=== PATIENT | male | born 1940 | race Caucasian/White ===

== ENCOUNTER 2017-06-19 17:51 | Observation (INO) | payer OTHER ==
[2017-06-19 18:24] LABS: Protime INR 1.32
[2017-06-19 18:25] LABS: Absolute Lymphocytes (CBC) 1.2 K/uL (0.7-4.9); Absolute Monocytes 0.4 K/uL (0.1-1.3); Absolute Neutrophil 3.7 K/uL (1.8-8.0); Basophils % 0.6 % (0-1.3); Eosinophils % 2.2 % (0-4.4); Hematocrit 33.6 % (39.6-49.0); Lymphocytes % 22.7 % (15.3-44.8); MCV 87.4 fL (80-100); MPV 10.3 fL (7.6-11.3); Monocytes % 7.4 % (3.3-12.3); RBC Red Blood Cell Count 3.84 M/uL (4.33-5.43)
[2017-06-19 18:31] LABS: Potassium 3.5 mEq/L (3.6-5.0)
[2017-06-19] MEDS ORDERED: POTASSIUM 25 MEQ EFFERV TAB ONE (19:36)
--- NOTE | 2017-06-19 19:41 | RAD REPORT ---
EXAM DESCRIPTION: RAD - Chest Single View - 06/19/2017 6:26 pm CLINICAL HISTORY: Shortness of breath COMPARISON: December 2016 TECHNIQUE: AP portable chest image was obtained 1815 hours . FINDINGS: No peripheral mass or consolidation. Interstitial markings are prominent but not clearly d ifferent. Heart size is upper normal and stable. No acute vascular engorgement suspected. Since prior imaging new pacemaker has been placed on the right side. Remnant lead from left-sided pacemaker pres ent. No measurable pleural effusion and no pneumothorax. No gross bony abnormality seen. No acute aor tic findings suspected. IMPRESSION: No acute cardiopulmonary process. No suspicious change from prior imaging.
--- NOTE | 2017-06-19 21:28 | ER ---
Nurse's Notes [facility] Name: Sean Pascual Age: 76 yrs Sex: Male : 1940 Arrival Date: 06/19/2017 Time: 17:54 Bed 6 Private MD: Diagnosis: Dyspnea Presentation: 06/19 17:50 Presenting complaint: EMS states: pt c/o SOB since yesterday, no home oxygen, vs stable hb >95% on room air, lungs CTA. Transition of care: patient was not received from another setting of care. Onset of symptoms was June 19, 2017. Care prior to arrival: None. 17:50 Method Of Arrival: EMS: [facility] hb 17:50 Acuity: TIERRA 3 hb 18:00 Initial Sepsis Screen: Does the patient meet any 2 criteria? No. Patient's initial hb sepsis screen is negative. Does the patient have a suspected source of infection? No. Patient's initial sepsis screen is negative. Triage Assessment: 18:01 General: Appears in no apparent distress. Behavior is calm, cooperative, appropriate tw2 for age. Pain: Denies pain. Respiratory: Reports shortness of breath Onset: The symptoms/episode began/occurred yesterday, the patient has mild shortness of breath. Historical: - Allergies: 17:59 No Known Allergies; hb - Home Meds: 17:59 apixaban Oral 5 mg 2 times per day [Active]; apixaban oral 5 mg oral 1 tab [Active]; hb loperamide 2 mg Oral cap 2 caps [Active]; liothyronine 5 mcg oral tab 1 tab once daily [Active]; metoprolol tartrate 50 mg Oral tab 2 tabs once daily [Active]; tramadol 50 mg Oral tab 1 tab every 4-6 hours [Active]; Imodium Oral [Active]; Iron CR Oral [Active]; - PMHx: 17:59 Diabetes - NIDDM; Hypertension; hb - Immunization history:: Adult Immunizations up to date. - Social history:: Smoking status: Patient/guardian denies using tobacco. Screenin:00 Abuse screen: Denies threats or abuse. Nutritional screening: No deficits noted. hb Tuberculosis screening: No symptoms or risk factors identified. Fall Risk None identified. Assessment: 18:01 Respiratory: Airway is patent Respiratory effort is even, unlabored, Respiratory tw2 pattern is regular, symmetrical, Breath sounds are clear bilaterally. 18:10 General: Appears in no apparent distress. well groomed, Behavior is calm, cooperative, tw2 appropriate for age. Pain: Denies pain. Neuro: Level of Consciousness is awake, alert, obeys commands, Oriented to person, place, time, situation. Cardiovascular: Rhythm is ventricular pacer. Respiratory: Reports shortness of breath at rest. GI: Reports diarrhea, "but i have had diarrhea since my bowel surgery where they removed some of my intestines in December". : No signs and/or symptoms were reported regarding the genitourinary system. EENT: No signs and/or symptoms were reported regarding the EENT system. Derm: Skin is intact, is healthy with good turgor, Skin temperature is warm. Musculoskeletal: Range of motion: intact in all extremities. 19:32 Reassessment: Patient appears in no apparent distress at this time. No changes from ak1 previously documented assessment. Patient is alert, oriented x 3, equal unlabored respirations, skin warm/dry/pink. Patient states symptoms have improved. 19:42 Reassessment: pt and family informed of repeat trop at 2030. . ak1 20:47 Reassessment: Patient appears in no apparent distress at this time. Patient and/or aa1 family updated on plan of care and expected duration. Pain level reassessed. Patient is alert, oriented x 3, equal unlabored respirations, skin warm/dry/pink. Awaiting repeat troponin result. 22:23 Reassessment: Patient appears in no apparent distress at this time. Patient is alert, ak1 oriented x 3, equal unlabored respirations, skin warm/dry/pink. Reports given to Diana on 4th floor. Vital Signs: 17:55 BP 168 / 89; Pulse 61; Resp 17; Temp 97.9(O); Pulse Ox 96% on R/A; Weight 87.09 kg (R); hb Height 6 ft. 2 in. (187.96 cm); Pain 0/10; 18:27 BP 163 / 79; Pulse 60; Resp 23; Pulse Ox 97% on R/A; tw2 19:41 BP 156 / 72; Pulse 62; Resp 17; Pulse Ox 98% on R/A; mt 20:39 BP 156 / 72; Pulse 60; Resp 16; Pulse Ox 99% on R/A; mt 22:00 BP 146 / 80; Pulse 70; Resp 18; Pulse Ox 98% on R/A; ak1 17:55 Body Mass Index 24.65 (87.09 kg, 187.96 cm) hb ED Course: 17:54 Patient arrived in ED. hb 17:55 Triage completed. hb 17:56 Terry Mckeon MD is Attending Physician. gs 17:56 Arm band placed on. hb 17:56 Bed in low position. Call light in reach. front desk monitor on. Pulse ox on. NIBP on. hb 18:00 Marie Isabel RN is Primary Nurse. tw2 18:10 No provider procedures requiring assistance completed. Inserted saline lock: 20 gauge hb in right antecubital area, using aseptic technique. ,using aseptic technique. per JIM Salazar Blood collected. 18:27 EKG done, by ED staff, reviewed by Terry Mckeon MD. jb1 19:05 Report given to JIM Pickard. tw2 19:26 XRAY Chest (1 view) In Process Unspecified. EDMS 20:03 Repeat lab(s) drawn. by va, sent to lab. aa1 21:27 Luc Bower MD is Hospitalizing Provider. gs 21:58 Primary Nurse role handed off by Marie Isabel RN rg2 22:23 Patient admitted, IV remains in place. ak1 Administered Medications: 19:42 Drug: Potassium Effervescent Tablet 50 mEq Route: PO; ak1 19:59 Follow up: Response: No adverse reaction ak1 21:53 Drug: Aspirin Chewable Tablet 324 mg Route: PO; mg2 22:30 Follow up: Response: No adverse reaction aa1 Outcome: 21:28 Decision to Hospitalize by Provider. gs 22:29 Admitted to Tele accompanied by [facility], via wheelchair, room 426, with chart, Report aa1 called to Diana 22:29 Condition: stable 22:29 Instructed on the need for admit, Demonstrated understanding of instructions. 22:30 Patient left the ED. aa1 Signatures: Dispatcher [employer] EDMS Leon Alfred jb1 Ranjit Leary rg2 Julianne Song RN RN aa1 Melly Dawkins RN RN ak1 Sofía Diaz RN RN Marie Isabel RN RN 2 Xiomara Caballero va Terry Mckeon MD MD Gardose, Madi, RN RN mg2
--- NOTE | 2017-06-19 21:29 | EDPHYS ---
Physician Documentation [facility] Name: Sean Pascual Age: 76 yrs Sex: Male : 1940 Arrival Date: 06/19/2017 Time: 17:54 Bed 6 Private MD: ED Physician Terry Mckeon HPI: 06/19 21:12 This 76 yrs old Male presents to ER via EMS with complaints of Shortness Of gs Breath. 21:12 The patient has shortness of breath at rest. Onset: The symptoms/episode began/occurred gs acutely, just prior to arrival. Duration: The symptoms are continuous, resolved. The patient's shortness of breath has no apparent modifying factors. Associated signs and symptoms: Pertinent negatives: chest pain. Severity of symptoms: At their worst the symptoms were severe in the emergency department the symptoms have improved markedly. The patient has experienced similar episodes in the past, a few times. The patient has been recently seen by a physician: Dr. mantilla. Historical: - Allergies: 17:59 No Known Allergies; hb - Home Meds: 17:59 apixaban Oral 5 mg 2 times per day [Active]; apixaban oral 5 mg oral 1 tab [Active]; hb loperamide 2 mg Oral cap 2 caps [Active]; liothyronine 5 mcg oral tab 1 tab once daily [Active]; metoprolol tartrate 50 mg Oral tab 2 tabs once daily [Active]; tramadol 50 mg Oral tab 1 tab every 4-6 hours [Active]; Imodium Oral [Active]; Iron CR Oral [Active]; - PMHx: 17:59 Diabetes - NIDDM; Hypertension; hb - Immunization history:: Adult Immunizations up to date. - Social history:: Smoking status: Patient/guardian denies using tobacco. ROS: 21:12 All other systems are negative. gs Exam: 18:54 ECG was reviewed by the Attending Physician. gs 21:12 Head/Face: Normocephalic, atraumatic. Eyes: Pupils equal round and reactive to light, gs extra-ocular motions intact. Lids and lashes normal. Conjunctiva and sclera are non-icteric and not injected. Cornea within normal limits. Periorbital areas with no swelling, redness, or edema. ENT: Nares patent. No nasal discharge, no septal abnormalities noted. Tympanic membranes are normal and external auditory canals are clear. Oropharynx with no redness, swelling, or masses, exudates, or evidence of obstruction, uvula midline. Mucous membranes moist. Neck: Trachea midline, no thyromegaly or masses palpated, and no cervical lymphadenopathy. Supple, full range of motion without nuchal rigidity, or vertebral point tenderness. No Meningismus. Chest/axilla: Normal chest wall appearance and motion. Nontender with no deformity. No lesions are appreciated. Cardiovascular: Regular rate and rhythm with a normal S1 and S2. No gallops, murmurs, or rubs. Normal PMI, no JVD. No pulse deficits. Respiratory: Lungs have equal breath sounds bilaterally, clear to auscultation and percussion. No rales, rhonchi or wheezes noted. No increased work of breathing, no retractions or nasal flaring. Abdomen/GI: Soft, non-tender, with normal bowel sounds. No distension or tympany. No guarding or rebound. No evidence of tenderness throughout. Back: No spinal tenderness. No costovertebral tenderness. Full range of motion. Skin: Warm, dry with normal turgor. Normal color with no rashes, no lesions, and no evidence of cellulitis. MS/ Extremity: Pulses equal, no cyanosis. Neurovascular intact. Full, normal range of motion. Neuro: Awake and alert, GCS 15, oriented to person, place, time, and situation. Cranial nerves II-XII grossly intact. Motor strength 5/5 in all extremities. Sensory grossly intact. Cerebellar exam normal. Normal gait. 21:12 Constitutional: The patient appears alert, awake. Vital Signs: 17:55 BP 168 / 89; Pulse 61; Resp 17; Temp 97.9(O); Pulse Ox 96% on R/A; Weight 87.09 kg (R); hb Height 6 ft. 2 in. (187.96 cm); Pain 0/10; 18:27 BP 163 / 79; Pulse 60; Resp 23; Pulse Ox 97% on R/A; tw2 19:41 BP 156 / 72; Pulse 62; Resp 17; Pulse Ox 98% on R/A; mt 20:39 BP 156 / 72; Pulse 60; Resp 16; Pulse Ox 99% on R/A; mt 22:00 BP 146 / 80; Pulse 70; Resp 18; Pulse Ox 98% on R/A; ak1 17:55 Body Mass Index 24.65 (87.09 kg, 187.96 cm) hb MDM: 18:06 Patient medically screened. gs 21:12 Differential diagnosis: CHF exacerbation, Myocardial Infarction pneumonia, pulmonary gs edema. Data reviewed: vital signs, nurses notes, and as a result, I will admit patient. 06/19 18:07 Order name: Basic Metabolic Panel; Complete Time: 19:31 06/19 18:07 Order name: CBC with Diff; Complete Time: 19:31 06/19 18:07 Order name: PT-INR; Complete Time: 19:31 06/19 18:07 Order name: Troponin (emerg Dept Use Only); Complete Time: 19:31 06/19 18:07 Order name: XRAY Chest (1 view); Complete Time: 19:58 06/19 19:58 Order name: Troponin (emerg Dept Use Only); Complete Time: 21:02 06/19 18:07 Order name: EKG; Complete Time: 19:25 06/19 18:07 Order name: Cardiac monitoring; Complete Time: 18:07 06/19 18:07 Order name: EKG - Nurse/Tech; Complete Time: 18:17 06/19 18:07 Order name: IV Saline Lock; Complete Time: 18:17 06/19 18:07 Order name: Labs collected and sent; Complete Time: 18:17 06/19 18:07 Order name: O2 Per Protocol; Complete Time: 18:17 06/19 18:07 Order name: O2 Sat Monitoring; Complete Time: 18:20 gs EC:54 Rate is 60 beats/min. Rhythm is regular. QRS interval is prolonged. T waves are Normal. gs No ST changes noted. Clinical impression: Abnormal EKG without significant change. Interpreted by me. Administered Medications: 19:42 Drug: Potassium Effervescent Tablet 50 mEq Route: PO; ak1 19:59 Follow up: Response: No adverse reaction ak1 21:53 Drug: Aspirin Chewable Tablet 324 mg Route: PO; mg2 22:30 Follow up: Response: No adverse reaction aa1 Disposition: 06/19/17 21:28 Hospitalization ordered by Luc Bower for Observation. Preliminary diagnosis is Dyspnea. - Bed requested for Telemetry/MedSurg (observation). - Status is Observation. aa1 - Condition is Stable. - Problem is new. - Symptoms have improved. UTI on Admission? No Signatures: Dispatcher [employer] Julianne Dougherty RN RN aa1 Melly Dawkins RN RN ak1 Allison Guy RN RN Sofía Diaz RN RN Terry Mckeon MD MD Madi Langston RN RN mg2 Corrections: (The following items were deleted from the chart) 21:47 21:28 Hospitalization Ordered by Luc Bower MD for Observation. Preliminary cg diagnosis is Dyspnea. Bed requested for Telemetry/MedSurg (observation). Status is Observation. Condition is Stable. Problem is new. Symptoms have improved. UTI on Admission? No. 22:30 21:47 06/19/2017 21:28 Hospitalization Ordered by Luc Bower MD for Observation. aa1 Preliminary diagnosis is Dyspnea. Bed requested for Telemetry/MedSurg (observation). Status is Observation. Condition is Stable. Problem is new. Symptoms have improved. UTI on Admission? No.
[2017-06-19] MEDS ORDERED: ASPIRIN 325 MG TAB ONE (21:48)
[2017-06-19] MEDS ORDERED: ASPIRIN EC 81 MG TAB PO ONE (21:52)
[2017-06-19] MEDS ORDERED: ASPIRIN 81 MG CHEWABLE TABLET ONE (21:52)
[2017-06-19] MEDS ORDERED: ALPRAZOLAM 0.25 MG TABLET PO PRN (22:09)
[2017-06-19] MEDS ORDERED: MORPHINE 4 MG/ML SYR IV PRN (22:09)
[2017-06-19] MEDS ORDERED: ACETAMINOPHEN 500 MG TAB PO PRN (22:09)
[2017-06-19 22:54] VITALS: BMI 25.3
[2017-06-20] MEDS ORDERED: TRAMADOL HCL 50 MG TAB PO PRN (03:27)
--- NOTE | 2017-06-20 04:15 | P.HP ---
Certification for Inpatient Patient admitted to: Observation With expected LOS: <2 Midnights Patient will require the following post-hospital care: None Practitioner: I am a practitioner with admitting privileges, knowledge of patient current condition, hospital course, and medical plan of care. Services: Services provided to patient in accordance with Admission requirements found in Title 42 Section 412.3 of the Code of Federal Regulations Patient History Date of Service: 06/19/17 Reason for admission: Shortness of breath and CHF exacerbation History of Present Illness: Patient is a 76-year-old gentleman who came into the hospital with shortness of breath. Patient has a history of coronary artery disease and recently had his pacemaker changed. This was done by Dr. Mooney. Patient has also followed up with Dr. Coulter for many years. Patient also recently had surgery for partial gastrectomy and partial small bowel resection. Patient was doing well until the shortness of breath started. Patient was worried because of all the issues he had with his surgery. He still following up with wound care. Patient shortness of breath was not improving so he came into the ER for further evaluation. In the emergency room patient's chest x-ray reveals some pulmonary edema. Patient was not hypoxic. Patient was admitted to the hospital for congestive heart failure exacerbation. Allergies No Known Allergies Allergy (Uncoded 06/20/17 00:22) Unknown Home Medications: Apixaban [Eliquis] 5 mg PO BID 01/30/17 Metoprolol Tartrate [Lopressor] 50 mg PO BID 01/30/17 Ferrous Sulfate [Iron] 325 mg PO DAILY 06/20/17 Liothyronine Sodium [Cytomel] 5 mcg PO DAILY 06/20/17 Loperamide [Imodium] 2 mg PO DAILY 06/20/17 Tramadol HCl [Ultram] 50 mg PO Q6HR PRN 06/20/17 - Past Medical/Surgical History Has patient received pneumonia vaccine in the past: Yes Diabetic: Yes -: HTN -: GERD -: DM -: Irregular Heart Rate -: Depression -: Left knee replacement -: Pacemaker -: Left shoulder sx -: Small/Large Bowel resection r/t obstruction -: Cardiac Bypass - Family History Father Medical History: Heart disease Notes: heart attack Mother Medical History: Lung disease Notes: emphysema - Social History Smoking Status: Former smoker Alcohol use: Yes CD- Drugs: No Caffeine use: Yes Place of Residence: Home Review of Systems 10-point ROS is otherwise unremarkable Physical Examination - Vital Signs Temperature: 97.8 F Blood Pressure: 173/74 Pulse: 59 Respirations: 20 Pulse Ox (%): 95 - Physical Exam General: Alert, In no apparent distress, Oriented x3 HEENT: Atraumatic, PERRLA, Mucous membr. moist/pink, EOMI, Sclerae nonicteric Neck: Supple, 2+ carotid pulse no bruit, No LAD, Without JVD or thyroid abnormality Respiratory: Clear to auscultation bilaterally, Normal air movement Cardiovascular: Regular rate/rhythm, Normal S1 S2, Systolic murmur Gastrointestinal: Normal bowel sounds, Soft and benign, Non-distended, No tenderness Musculoskeletal: No clubbing, No swelling, No tenderness Integumentary: No rashes Neurological: Normal gait, Normal speech, Normal strength at 5/5 x4 extr, Normal tone, Sensation intact, Cranial nerves 3-12 intact, Normal affect Lymphatics: No axilla or inguinal lymphadenopathy - Studies Laboratory Data (last 24 hrs) 06/19/17 18:10: PT 15.6 H, INR 1.32 06/19/17 18:10: WBC 5.5, Hgb 10.7 L, Hct 33.6 L, Plt Count 195 06/19/17 18:10: Sodium 142, Potassium 3.5 L, BUN 11, Creatinine 1.18, Glucose 102 Assessment & Plan - Problems (Diagnosis) (1) Acute exacerbation of congestive heart failure Current Visit: Yes Status: Acute (2) Depression Current Visit: No Status: Acute (3) Diabetes Current Visit: No Status: Acute (4) Hard of hearing Current Visit: No Status: Acute (5) History of bowel resection Current Visit: No Status: Acute (6) History of left knee replacement Current Visit: No Status: Acute (7) Hx of heart bypass surgery Current Visit: No Status: Acute (8) Hx of myocardial infarction Current Visit: No Status: Acute (9) Hypertension Current Visit: No Status: Acute (10) Pacemaker Current Visit: No Status: Acute - Plan 1. Echocardiogram 2. We will start patient on ARB 3. We will start patient on a Beta chong 4. Cardiology consultation 5. Gently diurese as patient looks to be compensating already. 6. Strict I's and O's 7. Repeat CXR 8. Daily weights 9. Education regarding diet and treatment of congestive heart failure 10. Outpatient follow with Cardiology - Advance Directives Does patient have a Living Will: Yes Does patient have a Durable POA for Healthcare: Yes - Code Status/Comfort Care Code Status Assessed: Yes Code Status: Full Code Critical Care: No Time Spent Managing PTS Care (In Minutes): 50
[2017-06-20 04:46] LABS: Albumin 3.5 g/dL (3.2-5.5); Bilirubin Total 0.8 mg/dL (0.3-1.2); Potassium 3.3 mEq/L (3.6-5.0); Protein, Total 6.4 g/dL (6.0-8.3)
[2017-06-20 04:57] LABS: Magnesium 1.4 mg/dL (1.8-2.5)
[2017-06-20] MEDS ORDERED: POTASSIUM 25 MEQ EFFERV TAB PO ONE (05:14)
[2017-06-20] MEDS ORDERED: Magnesium Sulfate 2gm IVPB 2 G/50 ML BAG IV ONE (05:14)
[2017-06-20 06:07] LABS: Absolute Lymphocytes (CBC) 1.7 K/uL (0.7-4.9); Absolute Monocytes 0.4 K/uL (0.1-1.3); Absolute Neutrophil 4.1 K/uL (1.8-8.0); Basophils % 0.5 % (0-1.3); Eosinophils % 2.6 % (0-4.4); Hematocrit 34.1 % (39.6-49.0); MCH 29.1 pg (27.0-35.0); MCV 86.7 fL (80-100); MPV 10.4 fL (7.6-11.3); Monocytes % 6.6 % (3.3-12.3); RBC Red Blood Cell Count 3.93 M/uL (4.33-5.43)
--- NOTE | 2017-06-20 06:42 | EKG ---
Test Date: 2017-06-19 Test Time: 18:17:38 Astrochemist: DAMIAN MEASUREMENT RESULTS: Intervals: Rate: 60 FL: QRSD: 188 QT: 482 QTc: 482 [place]: P: FL: QRS: -65 T: 113 INTERPRETIVE STATEMENTS: Ventricular-paced rhythm Abnormal ECG Compared to ECG 12/25/2016 00:08:41 Intraventricular conduction delay no longer present Previous ECG demonstrated pacemaker failure to capture, which has resolved Electronically Signed On 06-20-17 06:41:39 CDT by Ajit Neal
[2017-06-20] MEDS ORDERED: Morphine 2 MG/2 ML SYR IV PRN (08:04)
[2017-06-20] MEDS ORDERED: LIOTHYRONINE SOD 5 MCG TAB PO SCH (09:00)
[2017-06-20] MEDS ORDERED: FERROUS SULFATE 325 MG TAB PO SCH (09:00)
[2017-06-20] MEDS ORDERED: ASPIRIN 325 MG TAB PO SCH (09:00)
[2017-06-20] MEDS ORDERED: METOPROLOL TAR 50 MG TAB PO SCH ×2 (09:00)
[2017-06-20] MEDS ORDERED: APIXABAN 5 MG TABLET PO SCH (09:00)
[2017-06-20] MEDS ORDERED: LOPERAMIDE HCL 2 MG CAPSULE PO SCH (09:00)
[2017-06-20] MEDS ORDERED: ENOXAPARIN 40 MG/0.4 ML SQ SCH (09:00)
[2017-06-20 09:06] VITALS: TEMP 98.2
[2017-06-20 09:49] VITALS: O2SAT 97
--- NOTE | 2017-06-20 11:55 | EKG ---
Test Date: 2017-06-20 Test Time: 08:59:30 Steel Die Engraver: CHELSEY MEASUREMENT RESULTS: Intervals: Rate: 61 [place]: QRSD: 182 QT: 484 QTc: 487 [place]: P: MI: QRS: -77 T: 111 INTERPRETIVE STATEMENTS: Electronic ventricular pacemaker Compared to ECG 06/19/2017 18:17:38 No significant changes Electronically Signed On 06-20-17 11:54:01 CDT by Luis Moncada
[2017-06-20 12:11] VITALS: BP 164/77
--- NOTE | 2017-06-20 13:07 | ECHO ---
HEIGHT: 6 ft 2 in WEIGHT: 197 lb 8 oz DATE OF STUDY: 06/20/[address]: Luc Bower MD 2-DIMENSIONAL: YES M.MODE: YES DOPPLER: YES COLOR FLOW: YES TDS: NO PORTABLE: NO DEFINITY: NO BUBBLE STUDY: NO DIAGNOSIS: CHEST PAIN RULE OUT ACS CARDIAC HISTORY: CATHERIZATION: NO SURGERY: NO PROSTHETIC VALVE: NO PACEMAKER: YES MEASUREMENTS (cm) DIASTOLIC (NORMALS) SYSTOLIC (NORMALS) IVSd 1.1 (0.6-1.2) LA Diam 5.1 (1.9-4.0) LVEF 45% LVIDd 6.1 (3.5-5.7) LVIDs 4.3 (2.0-3.5) %FS % LVPWd 1.1 (0.6-1.2) Ao Diam 3.2 (2.0-3.7) 2 DIMENSIONAL ASSESSMENT: RIGHT ATRIUM: NORMAL LEFT ATRIUM: DILATED RIGHT VENTRICLE: NORMAL LEFT VENTRICLE: DILATED TRICUSPID VALVE: NORMAL MITRAL VALVE: NORMAL PULMONIC VALVE: NORMAL AORTIC VALVE: NORMAL PERICARDIAL EFFUSION: NONE AORTIC ROOT: NORMAL LEFT VENTRICULAR WALL MOTION: MILD GLOBAL HYPOKINESIS. DOPPLER/COLOR FLOW: MILD TRICUSPID REGURGITATION. MODERATE AORTIC REGURGITATION. COMMENTS: TECHNICALLY DIFFICULT STUDY. MILD GLOBAL HYPOKINESIS. LEFT VENTRICULAR EJECTION FRACTION 45%. MILD TRICUSPID REGURGITATION. MODERATE AORTIC REGURGITATION. LEFT ATRIAL AND VENTRICLE DILITATION. TECHNOLOGIST: Perla ALLEN
--- NOTE | 2017-06-21 11:16 | CON ---
Date of Consultation: 06/20/2017 The patient was admitted 06/19/[address] Bower's service for shortness of breath. I saw the patient on 06/20/2017. History Of Present Illness: Mr. Pascual is a 76-year-old white male, who really had no significant hi story as far as congestive heart failure. He has a history of recent pacemaker placement by Dr. Moises villar. He sees Dr. Coulter for his usual cardiac care. He came in mostly with dizziness, shortness of breath. No chest pain. Was found to be very hypertensive when he came to the emergency room. Denie d any blurred vision or weakness in his extremities. Denied any syncope. Denied any fevers or chill s with workup was fairly unremarkable. His symptoms lasted about 20 minutes. Past Medical History: Positive for hypertension, diabetes, pacemaker placement. Has had atrial fibr illation as well. Allergies: NONE. Review of Systems: Negative. Social History: Negative. Family History: Negative. Medications: At home include metoprolol, Eliquis. Physical Examination: General: Mr. Pascual appeared to be in no acute distress. He was very anxious to go home. Vital Signs: His vital signs were stable and afebrile. He was in a paced rhythm at about 70. HEENT: Negative. Neck: Supple with no bruit. Chest: Clear to auscultation and percussion. Cardiac: Revealed a regular rhythm and rate without any murmurs, gallops, or rubs. Abdomen: Benign. Extremities: Revealed no clubbing, cyanosis, or edema. Diagnostic Data: Fairly unremarkable. Echocardiogram that was done today was fairly unremarkable. He had a magnesium of 1.4, hemoglobin 11.4. CPKs, MBs, and troponin, and BNPs are all negative. Impression And Plan: I think Mr. Pascual's symptoms may have been secondary to either a hypertensive episode or transient ischemic attack. He is on Eliquis and metoprolol. He has a pacemaker that is f unctioning properly. Echocardiogram is unremarkable. His enzymes are unremarkable. I feel comforta ble with Mr. Pascual going home and follow up with Dr. Coulter in the near future. We will just obser ve him for now. An outpatient carotid Doppler may not be unreasonable. CHRIS/ELICIAL Voice ID: [id number] Report ID: [id number]
--- NOTE | 2017-08-02 14:48 | P.DS ---
Discharge Date: 06/20/17 Disposition: ROUTINE DISCHARGE Discharge Condition: GOOD Reason for Admission: Shortness of breath and CHF exacerbation Consultations: CArdiology - Problems (1) Acute exacerbation of congestive heart failure Status: Acute (2) Depression Status: Acute (3) Diabetes Onset Date: 07/27/17 Status: Acute (4) Hard of hearing Status: Acute (5) History of bowel resection Status: Acute (6) History of left knee replacement Status: Acute (7) Hx of heart bypass surgery Status: Acute (8) Hx of myocardial infarction Status: Acute (9) Hypertension Onset Date: 07/20/17 Status: Acute Qualifiers: Hypertension type: essential hypertension Qualified Code(s): I10 - Essential (primary) hypertension (10) Pacemaker Status: Acute Brief History of Present Illness: Patient is a 76-year-old gentleman who came into the hospital with shortness of breath. Patient has a history of coronary artery disease and recently had his pacemaker changed. This was done by Dr. Mooney. Patient has also followed up with Dr. Ortega for many years. Patient also recently had surgery for partial gastrectomy and partial small bowel resection. Patient was doing well until the shortness of breath started. Patient was worried because of all the issues he had with his surgery. He still following up with wound care. Patient shortness of breath was not improving so he came into the ER for further evaluation. In the emergency room patient's chest x-ray reveals some pulmonary edema. Patient was not hypoxic. Patient was admitted to the hospital for congestive heart failure exacerbation. Hospital Course: Patient's symptoms have resolved. Respiratory status is stable. Patient is clinically improved and is stable for discharge home with outpt follow-up. Vital Signs/Physical Exam: Temp Pulse Resp BP Pulse Ox 98.2 F 60 16 164/77 H 95 06/20/17 12:00 06/20/17 12:00 06/20/17 12:00 06/20/17 12:00 06/20/17 12:00 General: Alert, In no apparent distress, Oriented x3 Laboratory Data at Discharge: WBC 6.4 K/uL (4.3-10.9) D 06/20/17 05:39 Hgb 11.4 g/dL (13.6-17.9) L 06/20/17 05:39 Hct 34.1 % (39.6-49.0) L 06/20/17 05:39 Plt Count 178 K/uL (152-406) 06/20/17 05:39 PT 15.6 SECONDS (9.5-12.5) H 06/19/17 18:10 INR 1.32 06/19/17 18:10 Sodium 142 mEq/L (135-145) 06/20/17 03:51 Potassium 3.3 mEq/L (3.6-5.0) L 06/20/17 03:51 BUN 10 mg/dL (6-20) 06/20/17 03:51 Creatinine 1.13 mg/dL (0.61-1.24) 06/20/17 03:51 Glucose 88 mg/dL (65-120) 06/20/17 03:51 Magnesium 1.4 mg/dL (1.8-2.5) L* D 06/20/17 03:51 Total Bilirubin 0.8 mg/dL (0.3-1.2) 06/20/17 03:51 AST 33 IU/L (10-42) 06/20/17 03:51 ALT 32 IU/L (10-60) 06/20/17 03:51 Alkaline Phosphatase 77 IU/L (42-121) 06/20/17 03:51 Troponin I 0.05 ng/mL (<0.03) H 06/20/17 03:51 B-Natriuretic Peptide 1077 pg/ml (<=100) H 06/20/17 05:39 Triglycerides Cancelled 06/20/17 06:00 Cholesterol Cancelled 06/20/17 06:00 HDL Cholesterol Cancelled 06/20/17 06:00 Cholesterol/HDL Ratio Cancelled 06/20/17 06:00 Home Medications: Apixaban [Eliquis] 5 mg PO BID 01/30/17 Metoprolol Tartrate [Lopressor*] 50 mg PO BID 01/30/17 Liothyronine Sodium [Cytomel] 5 mcg PO DAILY 06/20/17 Fluticasone Propionate [Flovent Diskus] 1 spray NS DAILY 07/19/17 Diphenoxylate HCl/Atropine [Diphenoxylate-Atrop 2.5-0.025] 2 tab PO TID Ferrous Sulfate [Iron] 1 tab PO DAILY 07/27/17 Loratadine 10 mg PO DAILY 07/27/17 Multivitamin [Multivitamins] 1 cap PO DAILY 07/27/17 predniSONE [Prednisone*] 10 mg PO BID 07/27/17 Patient Discharge Instructions: OK TO DC IV AND DC HOME if ok with cardiology. FOLLOW-UP WITH PRIMARY CARE PROVIDER IN 1-2 WEEKS. FOLLOW-UP WITH CARDIOLOGY, Dr. Ortega, IN 1-2 WEEKS. RETURN TO THE ER IF symptoms worsen. CALL or TEXT DR. MONCADA AT [phone] IF ANY QUESTIONS REGARDING HOSPITAL STAY. PLEASE CALL THE FLOOR AT [phone] IF ANY MEDICATION OR NURSING QUESTIONS. Diet: AHA Activity: Fall precautions Followup: JUAN LUIS ORTEGA [UNKNOWN] - 1-2 Weeks (follow up in 1-2 weeks) Alberto Zurita MD [ACTIVE - CAN ADMIT] - 1-2 Weeks (follow up Parminder in 1-2 weeks. ) Time spent managing pt's care (in minutes): 25
== END 2017-06-20 13:57 | disposition home or self-care (01) ==
LOC: ER 17:51 → ERHOLD 21:35 → 4TH 22:15
PROVIDERS: ADMIT Hospitalist; ATTEND Hospitalist
DX: I11.0 Hypertensive heart disease with heart failure (principal); I50.9 Heart failure, unspecified; I25.10 Atherosclerotic heart disease of native coronary artery without angina pectoris; F32.9 Major depressive disorder, single episode, unspecified; E11.9 Type 2 diabetes mellitus without complications; Z96.652 Presence of left artificial knee joint; Z95.1 Presence of aortocoronary bypass graft; Z95.0 Presence of cardiac pacemaker
CPT/HCPCS: 36415; 71045; 80048; 80053; 80061; 83735; 83880; 84484 ×4; 85025 ×2; 85610; 93005 ×2; 93306; 99285; G0378 ×2; J1650; J3475

== ENCOUNTER 2017-07-02 23:57 | Emergency (ER) | payer OTHER ==
[2017-07-03] MEDS ORDERED: METHYLPREDNISOLONE 125 MG INJ ONE (01:24)
[2017-07-03] MEDS ORDERED: ALBUTEROL 2.5 MG/3 ML NEB SOL ONE ×2 (01:24→04:52)
[2017-07-03 01:46] LABS: Absolute Lymphocytes (CBC) 2.1 K/uL (0.7-4.9); Absolute Monocytes 0.5 K/uL (0.1-1.3); Absolute Neutrophil 4.8 K/uL (1.8-8.0); Basophils % 0.6 % (0-1.3); Eosinophils % 2.3 % (0-4.4); Hematocrit 36.1 % (39.6-49.0); Lymphocytes % 27.8 % (15.3-44.8); MCH 28.9 pg (27.0-35.0); MCV 87.7 fL (80-100); MPV 9.9 fL (7.6-11.3); Monocytes % 6.6 % (3.3-12.3); RBC Red Blood Cell Count 4.12 M/uL (4.33-5.43)
[2017-07-03 01:54] LABS: Protime INR 1.5
[2017-07-03 02:10] LABS: Blood O2 Saturation 96.7 % (92-98.5)
[2017-07-03 02:17] LABS: Albumin 3.7 g/dL (3.2-5.5); Bilirubin Direct 0.2 mg/dL (0-0.2); Bilirubin Total 0.9 mg/dL (0.3-1.2)
[2017-07-03 02:18] LABS: CKMB Creatine Kinase MB 2.2 ng/ml (0.3-4.0); Magnesium 1.4 mg/dL (1.8-2.5); Potassium 2.9 mEq/L (3.6-5.0)
[2017-07-03] MEDS ORDERED: POTASSIUM CL SA 10 MEQ TAB PO ONE (02:42)
[2017-07-03] MEDS ORDERED: KCL 20 MEQ/100 mL IVPB 20 MEQ/100 ML BAG IV ONE (02:43)
[2017-07-03] MEDS ORDERED: Magnesium Sulfate 2gm IVPB 2 G/50 ML BAG IV ONE (02:52)
[2017-07-03] MEDS ORDERED: NA CHLORIDE 0.9% 1,000 ML ONE (03:05)
[2017-07-03] MEDS ORDERED: IPRATROPIUM BROM 0.5MG/2.5ML ONE (04:52)
[2017-07-03] MEDS ORDERED: FUROSEMIDE 40 MG/4 ML VIAL ONE (04:52)
--- NOTE | 2017-07-03 06:00 | ER ---
Nurse's Notes [facility] Name: Sean Pascual Age: 76 yrs Sex: Male : 1940 Arrival Date: 07/03/2017 Time: 00:01 Bed 14 Private MD: Alberto Zurita Diagnosis: Acute dyspnea. Mild congestive heart failure Presentation: 07/03 00:11 Presenting complaint: Patient states: Feels shortness of breath since yesterday, states mb3 "can't get comfortable, just up and down". Transition of care: patient was not received from another setting of care. Onset of symptoms was July 01, 2017. Initial Sepsis Screen: Does the patient meet any 2 criteria? No. Patient's initial sepsis screen is negative. Does the patient have a suspected source of infection? No. Patient's initial sepsis screen is negative. Care prior to arrival: None. 00:11 Method Of Arrival: Ambulatory mb3 00:11 Acuity: TIERRA 3 mb3 Triage Assessment: 00:15 General: Appears in no apparent distress. comfortable, well groomed, Behavior is mb3 cooperative, appropriate for age, anxious. Pain: Denies pain. Neuro: No deficits noted. Level of Consciousness is awake, alert, obeys commands. Cardiovascular: No deficits noted. Heart tones S1 S2 present Capillary refill < 3 seconds Patient's skin is warm and dry. Pulses are all present. Respiratory: Reports shortness of breath at rest Airway is patent Respiratory effort is even, unlabored, Respiratory pattern is regular, symmetrical, Breath sounds are clear bilaterally. Onset: The symptoms/episode began/occurred yesterday, the patient has mild shortness of breath. GI: No signs and/or symptoms were reported involving the gastrointestinal system. Abdomen is flat, Bowel sounds present X 4 quads. : No signs and/or symptoms were reported regarding the genitourinary system. Musculoskeletal: No signs and/or symptoms reported regarding the musculoskeletal system. Circulation, motion, and sensation intact. Range of motion: intact in all extremities. 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 - Social history:: Smoking status: Patient/guardian denies using tobacco. Screenin:18 Abuse screen: Denies threats or abuse. Nutritional screening: No deficits noted. mb3 Tuberculosis screening: No symptoms or risk factors identified. Fall Risk No fall in past 12 months (0 pts). Secondary diagnosis (15 points) No IV (0 pts). Ambulatory Aid- Crutches/Cane/Walker (15 pts). Gait- Normal/Bed Rest/Wheelchair (0 pts) Mental Status- Oriented to own ability (0 pts). Total Garcia Fall Scale indicates Low Risk Score (25-44 pts). Side Rails Up X 2 Placed close to Nursing Station Frequent Obs/Assesments occuring Family Present and informed to notify staff if they need to leave bedside. Assessment: 00:19 Cardiovascular: Rhythm is A-V sequential pacer. mb3 03:18 General: Appears in no apparent distress. uncomfortable, slender, Behavior is calm, bb cooperative. Neuro: Level of Consciousness is awake, alert, obeys commands, Oriented to person, place, time, situation. Cardiovascular: Heart tones S1 S2 present Capillary refill < 3 seconds Patient's skin is warm and dry. Respiratory: Reports shortness of breath Airway is patent Respiratory effort is unlabored, Breath sounds are diminished in right upper lobe. GI: No signs and/or symptoms were reported involving the gastrointestinal system. Derm: Skin is pink, warm \\T\\ dry. Musculoskeletal: Circulation, motion, and sensation intact. 04:21 Reassessment: pt appears to be sleeping, eyes closed, resp unlabored, no signs of bb discomfort noted, IV site intact, patent with fluids infusing, son Roddy's number is [phone] and he will be in his car taking a nap. 06:25 Reassessment: respiratory therapist explained the use of breathing treatments for home. mg2 Vital Signs: 00:17 BP 161 / 72; Pulse 60; Resp 18; Temp 97.8(O); Pulse Ox 97% on R/A; Weight 85.28 kg; mb3 Height 6 ft. 2 in. (187.96 cm); Pain 0/10; 01:13 BP 152 / 75; Pulse 60; Resp 20; Pulse Ox 97% on R/A; mb3 03:25 BP 182 / 84; Pulse 61; Resp 18; Temp 98.0; Pulse Ox 100% on R/A; Pain 0/10; mg2 04:24 BP 160 / 66; Pulse 60; Resp 16 S; Pulse Ox 96% ; bb 05:28 Pulse 61; Resp 18; Pulse Ox 100% ; Pain 0/10; mg2 06:26 BP 155 / 86; Pulse 62; Resp 18; Pulse Ox 100% ; Pain 0/10; mg2 00:17 Body Mass Index 24.14 (85.28 kg, 187.96 cm) mb3 ED Course: 00:01 Patient arrived in ED. es 00:01 Alberto Zurita MD is Private Physician. es 00:11 Joey Flynn, JIM is Primary Nurse. mb3 00:12 Triage completed. mb3 00:13 Joce Rees MD is Attending Physician. pkl 00:20 Arm band placed on right wrist. mb3 00:20 Patient has correct armband on for positive identification. Placed in gown. Bed in low mb3 position. Call light in reach. Side rails up X 1. phototypesetting equipment monitor on. Pulse ox on. NIBP on. 00:24 X-ray completed. Portable x-ray completed in exam room. Patient tolerated procedure kw well. 00:32 Chest Single View XRAY In Process Unspecified. EDMS 01:01 Joce Rees MD is Attending Physician. pkl 01:40 Inserted saline lock: 20 gauge in right forearm, using aseptic technique. Blood mb3 collected. 02:[address] via stretcher. nj 03:03 CT completed. Patient tolerated procedure well. Patient moved back from [place]. nj 03:04 CT Chest For PE Angio In Process Unspecified. EDMS 03:26 IV is patent, is intact, with fluids infusing freely. bb 05:59 Alberto Zurita MD is Referral Physician. pkl 06:25 No provider procedures requiring assistance completed. IV discontinued, intact, mg2 bleeding controlled, No redness/swelling at site. Pressure dressing applied. Administered Medications: 01:39 Drug: Albuterol - atroVENT (3:1) (2.5 mg - 0.5 mg) 3 ml Route: Nebulizer; mb3 02:38 Follow up: Response: No adverse reaction mb3 01:40 Drug: SOLU-Medrol 125 mg Route: IVP; Site: right forearm; mb3 02:38 Follow up: Response: No adverse reaction mb3 02:44 Drug: K-Dur 40 mEq Route: PO; mb3 06:04 Follow up: Response: No adverse reaction mg2 03:16 Drug: NS 0.9% 1000 ml Route: IV; Rate: 100 ml/hr; Site: right antecubital; bb 06:05 Follow up: IV Status: Order to discontinue infusion; IV Intake: 300ml mg2 03:17 Drug: Magnesium Sulfate 2 grams Route: IVPB; Infused Over: 2 hrs; Site: right bb antecubital; 05:20 Follow up: IV Status: Completed infusion; IV Intake: 50ml mg2 03:17 Drug: Potassium Chloride 20 mEq Route: IV; Rate: calculated rate; Site: right bb antecubital; 05:20 Follow up: IV Status: Completed infusion; IV Intake: 100ml mg2 04:59 Drug: Albuterol - atroVENT (3:1) (2.5 mg - 0.5 mg) 3 ml Route: Nebulizer; mg2 06:06 Follow up: Response: No adverse reaction mg2 04:59 Drug: Lasix 40 mg Route: IVP; Site: right forearm; mg2 06:06 Follow up: Response: No adverse reaction mg2 06:24 Follow up: Response: No adverse reaction mg2 Intake: 05:20 IV: 50ml; Total: 50ml. mg2 05:20 IV: 100ml; Total: 150ml. mg2 06:05 IV: 300ml; Total: 450ml. mg2 Output: 05:25 Urine: 400ml (Voided); Total: 400ml. mg2 Outcome: 05:59 Discharge ordered by . pkl 06:24 Discharged to home ambulatory, with family. mg2 06:24 Condition: stable 06:24 Discharge instructions given to patient, family, Instructed on discharge instructions, follow up and referral plans. medication usage, Demonstrated understanding of instructions, follow-up care, medications. 06:27 Patient left the ED. mg2 Signatures: Dispatcher [employer] Joce Barros MD MD pkl Leandra Lara Brenda, RN RN bb Magali Floyd Nathan nj Gardose, Michele, RN RN mg2 Joey Flynn RN RN mb3
--- NOTE | 2017-07-03 06:00 | EDPHYS ---
Physician Documentation [facility] Name: Sean Pascual Age: 76 yrs Sex: Male : 1940 Arrival Date: 07/03/2017 Time: 00:01 Bed 14 Private MD: Alberto Zurita ED Physician Joce Rees HPI: 07/03 01:24 This 76 yrs old Male presents to ER via Ambulatory with complaints of pkl Breathing Difficulty. 01:24 The patient has shortness of breath at rest. Onset: The symptoms/episode began/occurred pkl yesterday. The patient has experienced similar episodes in the past, a few times. 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 - Social history:: Smoking status: Patient/guardian denies using tobacco. ROS: 01:24 Eyes: Negative for injury, pain, redness, and discharge, ENT: Negative for injury, pkl pain, and discharge, Neck: Negative for injury, pain, and swelling, Cardiovascular: Negative for chest pain, palpitations, and edema. 01:24 Respiratory: Positive for shortness of breath. 01:24 Abdomen/GI: Negative for abdominal pain, nausea, vomiting, and diarrhea. pkl 01:24 Back: Negative for acute changes. 01:24 : Negative for urinary symptoms. 01:24 MS/extremity: Negative for acute changes. 01:24 Skin: Negative for rash. 01:24 Neuro: Negative for altered mental status. Exam: 01:24 Head/Face: Normocephalic, atraumatic. Eyes: Pupils equal round and reactive to light, pkl extra-ocular motions intact. Lids and lashes normal. Conjunctiva and sclera are non-icteric and not injected. Cornea within normal limits. Periorbital areas with no swelling, redness, or edema. ENT: Nares patent. No nasal discharge, no septal abnormalities noted. Tympanic membranes are normal and external auditory canals are clear. Oropharynx with no redness, swelling, or masses, exudates, or evidence of obstruction, uvula midline. Mucous membranes moist. Neck: Trachea midline, no thyromegaly or masses palpated, and no cervical lymphadenopathy. Supple, full range of motion without nuchal rigidity, or vertebral point tenderness. No Meningismus. Chest/axilla: Normal chest wall appearance and motion. Nontender with no deformity. No lesions are appreciated. Cardiovascular: Regular rate and rhythm with a normal S1 and S2. No gallops, murmurs, or rubs. Normal PMI, no JVD. No pulse deficits. 01:24 Respiratory: the patient does not display signs of respiratory distress, Respirations: normal, Breath sounds: bronchial sounds, that are mild, are scattered. 01:24 Abdomen/GI: Bowel sounds: normal, Palpation: abdomen is soft and non-tender, in all pkl quadrants. 01:24 Back: Exam negative for acute changes. 01:24 : Exam negative for acute changes. 01:24 Musculoskeletal/extremity: Exam is negative for acute changes. 01:24 Skin: Exam negative for rash. 01:24 Neuro: Orientation: is normal, Mentation: is normal, Cranial nerves: grossly normal, Motor: is normal. Vital Signs: 00:17 BP 161 / 72; Pulse 60; Resp 18; Temp 97.8(O); Pulse Ox 97% on R/A; Weight 85.28 kg; mb3 Height 6 ft. 2 in. (187.96 cm); Pain 0/10; 01:13 BP 152 / 75; Pulse 60; Resp 20; Pulse Ox 97% on R/A; mb3 03:25 BP 182 / 84; Pulse 61; Resp 18; Temp 98.0; Pulse Ox 100% on R/A; Pain 0/10; mg2 04:24 BP 160 / 66; Pulse 60; Resp 16 S; Pulse Ox 96% ; bb 05:28 Pulse 61; Resp 18; Pulse Ox 100% ; Pain 0/10; mg2 06:26 BP 155 / 86; Pulse 62; Resp 18; Pulse Ox 100% ; Pain 0/10; mg2 00:17 Body Mass Index 24.14 (85.28 kg, 187.96 cm) mb3 MDM: 01:01 Patient medically screened. pkl 05:56 Data reviewed: vital signs, nurses notes, lab test result(s), EKG, radiologic studies, pkl CT scan, plain films. 05:56 ED course: Patient said he is feeling better. Want to go home. Does not want to be pkl admitted for further treatment. Advised to follow up with Dr. Zurita in 1 to 2 days.. 07/03 01:18 Order name: Basic Metabolic Panel pkl 07/03 01:18 Order name: BNP; Complete Time: 02:14 pkl 07/03 01:18 Order name: CBC with Diff; Complete Time: 02:14 pkl 07/03 01:18 Order name: Ckmb; Complete Time: 02:20 pkl 07/03 01:18 Order name: CPK; Complete Time: 02:20 pkl 07/03 01:18 Order name: LFT's; Complete Time: 02:20 pkl 07/03 01:18 Order name: Magnesium; Complete Time: 02:20 pkl 07/03 01:18 Order name: PT-INR; Complete Time: 02:14 pkl 07/03 01:18 Order name: Ptt, Activated; Complete Time: 02:14 pkl 07/03 01:18 Order name: Troponin (emerg Dept Use Only); Complete Time: 02:14 pkl 07/03 01:18 Order name: ABG; Complete Time: 02:14 pkl 07/03 01:21 Order name: Basic Metabolic Panel; Complete Time: 02:20 EDMS 07/03 01:25 Order name: D-Dimer; Complete Time: 02:14 EDMS 07/03 00:18 Order name: Chest Single View XRAY mb3 07/03 01:18 Order name: EKG; Complete Time: 01:21 pkl 07/03 01:18 Order name: Cardiac monitoring; Complete Time: :40 pkl 07/03 01:18 Order name: EKG - Nurse/Tech; Complete Time: 02:38 pkl 07/03 01:18 Order name: IV Saline Lock; Complete Time: :40 pkl 07/03 01:18 Order name: Labs collected and sent; Complete Time: :40 pkl 07/03 01:18 Order name: O2 Per Protocol; Complete Time: : pkl 07/03 02:20 Order name: CT Chest For PE Angio pkl 07/03 01:18 Order name: O2 Sat Monitoring; Complete Time: : pkl Administered Medications: 01:39 Drug: Albuterol - atroVENT (3:1) (2.5 mg - 0.5 mg) 3 ml Route: Nebulizer; mb3 02:38 Follow up: Response: No adverse reaction mb3 01:40 Drug: SOLU-Medrol 125 mg Route: IVP; Site: right forearm; mb3 02:38 Follow up: Response: No adverse reaction mb3 02:44 Drug: K-Dur 40 mEq Route: PO; mb3 06:04 Follow up: Response: No adverse reaction mg2 03:16 Drug: NS 0.9% 1000 ml Route: IV; Rate: 100 ml/hr; Site: right antecubital; bb 06:05 Follow up: IV Status: Order to discontinue infusion; IV Intake: 300ml mg2 03:17 Drug: Magnesium Sulfate 2 grams Route: IVPB; Infused Over: 2 hrs; Site: right bb antecubital; 05:20 Follow up: IV Status: Completed infusion; IV Intake: 50ml mg2 03:17 Drug: Potassium Chloride 20 mEq Route: IV; Rate: calculated rate; Site: right bb antecubital; 05:20 Follow up: IV Status: Completed infusion; IV Intake: 100ml mg2 04:59 Drug: Albuterol - atroVENT (3:1) (2.5 mg - 0.5 mg) 3 ml Route: Nebulizer; mg2 06:06 Follow up: Response: No adverse reaction mg2 04:59 Drug: Lasix 40 mg Route: IVP; Site: right forearm; mg2 06:06 Follow up: Response: No adverse reaction mg2 06:24 Follow up: Response: No adverse reaction mg2 Disposition: 07/03/17 05:59 Discharged to Home. Impression: Acute dyspnea. Mild congestive heart failure. - Condition is Stable. - Prescriptions for Lasix 40 mg Oral Tablet - take 1 tablet by ORAL route once daily for 15 days; 15 tablet. Potassium Chloride 10 mEq Oral Tablet - take 1 tablet by ORAL route every 12 hours; 30 tablet. Albuterol Sulfate 2.5 mg /3 mL (0.083 %) Inhalation Solution for Nebulization - inhale 1 unit by NEBULIZATION route every 8 hours As needed; 1 box. - Medication Reconciliation Form, Thank You Letter, Antibiotic Education, Prescription Opioid Use form. - Follow up: Alberto uZrita MD; When: 1 - 2 days; Reason: Re-evaluation by your physician. - Problem is new. - Symptoms have improved. Signatures: Dispatcher [employer] [facility] Joce Rees MD MD pkl Irma Romero, RN RN bb Madi Langston, JIM RN mg2 Joey Flynn, RN RN mb3 Corrections: (The following items were deleted from the chart) 01:24 01:23 D-DIMER+[id number].BRZ ordered. [facility] 06:27 05:59 07/03/2017 05:59 Discharged to Home. Impression: Acute dyspnea. Mild congestive mg2 heart failure. Condition is Stable. Forms are Medication Reconciliation Form, Thank You Letter, Antibiotic Education, Prescription Opioid Use. Follow up: Alberto Zurita; When: 1 - 2 days; Reason: Re-evaluation by your physician. Problem is new. Symptoms have improved. pkl
[2017-07-03 06:35] VITALS: TEMP 98
[2017-07-03 06:37] VITALS: O2SAT 100
[2017-07-03 06:39] VITALS: BP 155/86
--- NOTE | 2017-07-03 07:58 | EKG ---
Test Date: 2017-07-03 Test Time: 02:18:10 Specimen Collector: MB MEASUREMENT RESULTS: Intervals: Rate: 60 W[place]: QRSD: 198 QT: 506 QTc: 506 [place]: P: [place]: QRS: -75 T: 102 INTERPRETIVE STATEMENTS: Ventricular-paced rhythm Abnormal ECG Compared to ECG 06/20/2017 08:59:30 No significant changes Electronically Signed On 07-03-17 07:57:41 CDT by Ajit Neal
--- NOTE | 2017-07-03 09:26 | RAD REPORT ---
EXAM DESCRIPTION: CT - Chest For Pe Angio - 07/03/2017 6:06 am CLINICAL HISTORY: Shortness of breath since yesterday COMPARISON: December 2016 TECHNIQUE: Dynamically enhanced axial 3 mm thick images of the chest were obtained during administra tion of <100> mL Isovue 370 IV contrast. Coronal and oblique reconstruction images were generated and reviewed. Exam utilizes a protocol for optimal evaluation of pulmonary arterial tree. All CT scans are performed using dose optimization technique as appropriate and may include automated exposure control or mA/KV adjustment according to patient size. FINDINGS: A pulmonary embolus is not seen. A thoracic aortic aneurysm is not noted. Moderate bilateral pleural effusions are present. A pericardial effusion is not seen. The heart is en larged. Mild bilateral pulmonary opacities are seen IMPRESSION: Negative for a pulmonary embolism. CHF
--- NOTE | 2017-07-05 11:07 | RAD REPORT ---
EXAM DESCRIPTION: RAD - Chest Single View - 07/03/2017 12:32 am CLINICAL HISTORY: Chest pain. COMPARISON: 06/19/2017 FINDINGS: Portable technique limits examination quality. Mild interstitial prominence is present bilaterally likely representing mild interstitial pulmonary e hiren. The heart is mildly enlarged in size with a single lead pacer device present. No displaced frac tures.Evidence of previous rotator cuff repair noted. IMPRESSION: Mild CHF/ volume overload pattern.
== END 2017-07-03 06:27 | disposition home or self-care (01) ==
LOC: ER 23:57
DX: I50.9 Heart failure, unspecified (principal); I10 Essential (primary) hypertension; Z85.038 Personal history of other malignant neoplasm of large intestine; Z85.068 Personal history of other malignant neoplasm of small intestine
CPT/HCPCS: 36415; 71045; 71275; 80048; 80076; 82550; 82553; 82805; 83735; 83880; 84484; 85025; 85379; 85610; 85730; 93005; J2930; J3475; J7030; Q9967; 94640; 96361; 96365; 96366; 96368; 96375; 99285

== ENCOUNTER 2017-07-19 14:10 | Observation (INO) | payer OTHER ==
[2017-07-19] MEDS ORDERED: IPRATROPIUM BROM 0.5MG/2.5ML ONE (15:26)
[2017-07-19] MEDS ORDERED: ALBUTEROL 2.5 MG/3 ML NEB SOL ONE (15:26)
--- NOTE | 2017-07-19 15:38 | RAD REPORT ---
EXAM DESCRIPTION: RAD - Chest Single View - 07/19/2017 3:24 pm CLINICAL HISTORY: Abdominal pain, shortness of breath COMPARISON: July 03 TECHNIQUE: AP portable chest image was obtained 1521 hours . FINDINGS: Lung markings are prominent but not clearly different from the prior study. Vasculature is mildly prominent. A mild interstitial edema or infiltrate could be masked by the chronic underlying disease. Trachea is midline. Pacemaker leads remain in place. Heart and vasculature are normal. No me asurable pleural effusion and no pneumothorax. No gross bony abnormality seen. No acute aortic findin gs suspected. IMPRESSION: Chronic interstitial lung disease is present potentially masking early stages of interst itial edema or infiltrate. No focal consolidation or mass.
[2017-07-19 16:05] LABS: Urine Blood NEGATIVE (NEG); Urine Glucose NEGATIVE (NEG); Urine Protein 1+ (NEG)
[2017-07-19 16:13] LABS: Absolute Lymphocytes (CBC) 1.6 K/uL (0.7-4.9); Absolute Monocytes 0.5 K/uL (0.1-1.3); Absolute Neutrophil 5.3 K/uL (1.8-8.0); Basophils % 0.6 % (0-1.3); Eosinophils % 0.6 % (0-4.4); Hematocrit 36.4 % (39.6-49.0); Lymphocytes % 21.8 % (15.3-44.8); MCH 28.9 pg (27.0-35.0); MCV 87.2 fL (80-100); MPV 10.7 fL (7.6-11.3); Monocytes % 6.1 % (3.3-12.3); RBC Red Blood Cell Count 4.17 M/uL (4.33-5.43)
[2017-07-19 16:28] LABS: Potassium 3.6 mEq/L (3.6-5.0)
[2017-07-19 16:33] LABS: Protime INR 1.56
[2017-07-19 16:34] LABS: Albumin 3.9 g/dL (3.2-5.5); Bilirubin Direct 0.2 mg/dL (0-0.2); Magnesium 1.6 mg/dL (1.8-2.5); Protein, Total 7.1 g/dL (6.0-8.3)
--- NOTE | 2017-07-19 16:58 | EDPHYS ---
Physician Documentation [facility] Name: Sean Pascual Age: 76 yrs Sex: Male : 1940 Arrival Date: 07/19/2017 Time: 14:13 Bed 16 Private MD: Giovanny García K; Gowda, Jeevan ED Physician Donis Mcconnell HPI: 07/19 15:10 This 76 yrs old Male presents to ER via Wheelchair with complaints of cp Breathing Difficulty. 15:10 The patient has shortness of breath at rest, when laying flat. Duration: The symptoms cp are continuous, and are steadily getting worse. 15:10 Associated signs and symptoms: Pertinent negatives: chest pain, productive cough, cp diaphoresis, fever, hemoptysis, vomiting, abdominal pain. Severity of symptoms: in the emergency department the symptoms are unchanged despite home interventions. The patient has experienced similar episodes in the past, several times. 15:10 Onset: The symptoms/episode began/occurred since December 2016 and symptoms are cp becoming worse. Patient reports he saw DR Zurita yesterday but last night had to sleep sitting up in chair. 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 - Social history:: Smoking status: Patient/guardian denies using tobacco. - Ebola Screening: : Patient negative for fever greater than or equal to 101.5 degrees Fahrenheit, and additional compatible Ebola Virus Disease symptoms Patient denies exposure to infectious person Patient denies travel to an Ebola-affected area in the 21 days before illness onset No symptoms or risks identified at this time. ROS: 15:15 Constitutional: Negative for body aches, chills, fatigue, fever, poor PO intake. cp 15:15 Eyes: Negative for injury, pain, redness, and discharge. cp Exam: 15:22 Constitutional: The patient appears in no acute distress, alert, awake, cp non-diaphoretic, non-toxic, well developed, well nourished. 15:22 Head/Face: Normocephalic, atraumatic. cp 15:22 Eyes: Periorbital structures: appear normal, Pupils: equal, round, and reactive to light and accomodation, Extraocular movements: intact throughout, Conjunctiva: normal, no exudate, no injection, Sclera: no appreciated abnormality, Lids and lashes: appear normal, bilaterally. 15:22 ENT: External ear(s): are unremarkable, Ear canal(s): are normal, clear, TM's: bulging, is not appreciated, bilaterally, dullness, bilaterally, erythema, is not appreciated, bilaterally, Nose: is normal, Mouth: is normal, Posterior pharynx: is normal, airway is patent, no erythema, no exudate, Voice: is normal. 15:22 Neck: ROM/movement: is normal, is supple, without pain, no range of motions limitations, no meningismus, no nuchal rigidity. 15:22 Chest/axilla: Inspection: normal, Palpation: is normal, no crepitus, no tenderness. 15:22 Cardiovascular: Rate: normal, Rhythm: regular, Pulses: Pulses are 2+ in right radial artery and left radial artery. Edema: mild bilateral lower legs, JVD: is not appreciated. 15:22 Respiratory: the patient does not display signs of respiratory distress, Respirations: normal, no use of accessory muscles, no retractions, no splinting, no tachypnea, labored breathing, that is mild, nasal flaring, is not appreciated, intercostal retractions, are absent, shallow respirations, that is mild, tachypnea, is not appreciated, Breath sounds: rales, that are mild, are located in both bases, decreased breath sounds, that are mild, throughout, wheezing: is not appreciated. 15:22 Abdomen/GI: Inspection: scar(s), are noted in the midline lower abdomen, Bowel sounds: active, all quadrants, Palpation: soft, in all quadrants, mild abdominal tenderness, in the right lower quadrant and left lower quadrant, rebound tenderness, is not appreciated, voluntary guarding, is not appreciated, involuntary guarding, is not appreciated. 15:22 Back: pain, is absent, ROM is normal. 15:22 Skin: cellulitis, is not appreciated, no rash present. 15:22 Neuro: Orientation: to person, place \T\ time. Mentation: lucid, able to follow commands, Cerebellar function: is grossly normal, Motor: moves all fours, strength is normal, Sensation: no obvious gross deficits. Vital Signs: 14:19 BP 161 / 74; Pulse 59; Resp 22; Temp 97.8; Pulse Ox 98% on R/A; Weight 71.67 kg; Height aj 5 ft. 10 in. (177.80 cm); 16:10 BP 142 / 70; Pulse 62; Resp 18 S; Pulse Ox 98% on R/A; sg 18:30 BP 144 / 62; Pulse 66; Resp 19; Temp 97.9; Pulse Ox 99% on R/A; Pain 0/10; sg 19:20 BP 167 / 70; Pulse 63; Resp 16; Temp 98(O); Pulse Ox 100% on R/A; Pain 0/10; bs1 14:19 Body Mass Index 22.67 (71.67 kg, 177.80 cm) aj MDM: 14:36 Patient medically screened. cp 15:30 Differential diagnosis: Bronchitis CHF exacerbation, Chronic Obstructive Pulmonary cp Disease Myocardial Infarction pneumonia, Pneumothorax pulmonary edema, Pulmonary Embolism reactive airway disease, Sepsis Unstable Angina. 16:40 Data reviewed: vital signs, nurses notes, lab test result(s), EKG, radiologic studies, cp plain films. 16:40 Test interpretation: by ED physician or midlevel provider: ECG, plain radiologic cp studies. Counseling: I had a detailed discussion with the patient and/or guardian regarding: the historical points, exam findings, and any diagnostic results supporting the discharge/admit diagnosis, lab results, radiology results, the need for further work-up and treatment in the hospital. 16:47 Physician consultation: Alberto Zurita MD was called at 14:47, was contacted at 16:47, regarding admission, to the telemetry unit. patient's condition. 07/19 15:06 Order name: Basic Metabolic Panel cp 07/19 15:06 Order name: BNP cp 07/19 15:06 Order name: CBC with Diff; Complete Time: 16:35 cp / 16:35 Interpretation: Normal except: RBC 4.17; HGB 12.0; HCT 36.4; RDW 15.6. cp / 15:06 Order name: LFT's; Complete Time: 16:35 cp 07/19 15:06 Order name: Magnesium; Complete Time: 16:35 cp 07/19 15:06 Order name: PT-INR; Complete Time: 16:46 cp 07/19 15:06 Order name: Ptt, Activated; Complete Time: 16:46 cp 07/19 15:06 Order name: XRAY Chest (1 view); Complete Time: 16:35 cp / 15:06 Order name: EKG; Complete Time: 15:06 cp 07/19 15:06 Order name: Basic Metabolic Panel; Complete Time: 16:35 EDMS 07/19 15:06 Order name: BNP B-Type Natriuretic Peptide; Complete Time: 16:35 EDMS 07/19 16:02 Order name: Urine Dipstick--Ancillary (enter results); Complete Time: 16:35 em1 07/19 15:06 Order name: Cardiac monitoring; Complete Time: 15:39 cp / 15:06 Order name: EKG - Nurse/Tech; Complete Time: 15:40 cp / 15:06 Order name: IV Saline Lock; Complete Time: 15:39 cp / 15:06 Order name: Labs collected and sent; Complete Time: 15:39 cp 07/19 15:06 Order name: O2 Per Protocol; Complete Time: 15:31 cp / 15:06 Order name: O2 Sat Monitoring; Complete Time: 15:32 cp / 15:06 Order name: Urine Dipstick-Ancillary (obtain specimen); Complete Time: 16:01 cp /06 17:38 Order name: Diet Renal; Complete Time: 17:38 sg Administered Medications: 15:31 Drug: Albuterol - atroVENT (3:1) (2.5 mg - 0.5 mg) 3 ml Route: Nebulizer; sg 15:52 Follow up: Response: No adverse reaction sg 17:37 Drug: Lasix 40 mg Route: IVP; Site: right antecubital; 19:49 Follow up: Response: No adverse reaction bs1 Disposition: 07/19/17 16:57 Hospitalization ordered by Alberto Zurita for Observation. Preliminary diagnosis are Orthopnea, Pulmonary edema. - Bed requested for Telemetry/MedSurg (observation). - Status is Observation. bs1 - Condition is Stable. - Problem is an acute exacerbation. - Symptoms have improved. UTI on Admission? No Addendum: 07/21/2017 21:34 Co-signature as Attending Physician, Donis Mcconnell MD. r n Signatures: Dispatcher [employer] EDIA Yamilex Valencia RN RN Socrates Finn RN Rhonda Hardwick RN Donis Bronson MD MD rn Page, Corey, PA PA cp Salazar, Brittany, RN RN bs1 Corrections: (The following items were deleted from the chart) 07/19 18:40 16:57 Hospitalization Ordered by Alberto Zurita MD for Observation. Preliminary diagnosis dw is Orthopnea; Pulmonary edema. Bed requested for Telemetry/MedSurg (observation). Status is Observation. Condition is Stable. Problem is an acute exacerbation. Symptoms have improved. UTI on Admission? No. 19:49 18:40 07/19/2017 16:57 Hospitalization Ordered by Alberto Zurita MD for Observation. bs1 Preliminary diagnosis is Orthopnea; Pulmonary edema. Bed requested for Telemetry/MedSurg (observation). Status is Observation. Condition is Stable. Problem is an acute exacerbation. Symptoms have improved. UTI on Admission? No. dw
--- NOTE | 2017-07-19 16:58 | ER ---
Nurse's Notes [facility] Name: Sean Pascual Age: 76 yrs Sex: Male : 1940 Arrival Date: 07/19/2017 Time: 14:13 Bed 16 Private MD: Giovanny García K; Gowda, Jeevan Diagnosis: Orthopnea;Pulmonary edema Presentation: 07/19 14:16 Presenting complaint: Patient states: SOB and diarrhea that started in December. aj Transition of care: patient was not received from another setting of care. Onset of symptoms was December 2016. Risk Assessment: Do you want to hurt yourself or someone else? Patient reports no desire to harm self or others. Care prior to arrival: None. 14:16 Method Of Arrival: Wheelchair aj 14:16 Acuity: TIERRA 3 aj 14:30 Initial Sepsis Screen: Does the patient meet any 2 criteria? No. Patient's initial sg sepsis screen is negative. Does the patient have a suspected source of infection? No. Patient's initial sepsis screen is negative. Triage Assessment: 14:19 General: Appears in no apparent distress. comfortable, Behavior is calm, cooperative, aj appropriate for age. Pain: Denies pain. Neuro: Level of Consciousness is awake, alert, obeys commands, Oriented to person, place, time, situation, Appropriate for age. Respiratory: Reports shortness of breath Airway is patent Respiratory effort is even, unlabored, Respiratory pattern is regular, symmetrical, Onset: The symptoms/episode began/occurred gradually, the patient has mild shortness of breath. GI: Reports diarrhea. Derm: Skin is intact, is healthy with good turgor, Skin is pink, warm \\T\\ dry. normal. 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 - Social history:: Smoking status: Patient/guardian denies using tobacco. - Ebola Screening: : Patient negative for fever greater than or equal to 101.5 degrees Fahrenheit, and additional compatible Ebola Virus Disease symptoms Patient denies exposure to infectious person Patient denies travel to an Ebola-affected area in the 21 days before illness onset No symptoms or risks identified at this time. Screenin:00 Abuse screen: Denies threats or abuse. Denies injuries from another. Nutritional sg screening: No deficits noted. Tuberculosis screening: No symptoms or risk factors identified. Never had TB. Fall Risk None identified. Assessment: 14:00 General: Appears in no apparent distress. comfortable, well groomed, well developed, sg well nourished, Behavior is calm, cooperative, appropriate for age. Pain: Denies pain. Neuro: Level of Consciousness is awake, alert, obeys commands, Oriented to person, place, time, situation, Speech is normal, Facial symmetry appears normal, Facial droop on right. Cardiovascular: Heart tones S1 S2 present Capillary refill is brisk in bilateral fingers Patient's skin is warm and dry. Chest pain is denied. GI: Abdomen is flat, non-distended, Bowel sounds present X 4 quads. Reports diarrhea. : No deficits noted. EENT: No deficits noted. Derm: Skin is pink, warm \\T\\ dry. Musculoskeletal: No signs and/or symptoms reported regarding the musculoskeletal system. 14:15 Respiratory: Breath sounds are clear. sg 14:30 Reassessment: pt speaking with family/friend at bedside, no resp distress noted, pt sg voice clear and cloud, has not had trouble speaking with friends/family, pt reports feels "difficult to breath and like someone is choking". 15:00 Reassessment: Patient appears in no apparent distress at this time. Patient and/or sg family updated on plan of care and expected duration. Pain level reassessed. Patient is alert, oriented x 3, equal unlabored respirations, skin warm/dry/pink. 16:00 Reassessment: pt speaking with new family/friend at bedside at this time. sg 16:12 Reassessment: Patient appears in no apparent distress at this time. Patient and/or sg family updated on plan of care and expected duration. Pain level reassessed. Patient is alert, oriented x 3, equal unlabored respirations, skin warm/dry/pink. Respiratory: Airway is patent Respiratory effort is even, unlabored, Respiratory pattern is regular, symmetrical. 19:08 Reassessment: Report received from JIM Crowell. bs1 19:08 General: Appears in no apparent distress. comfortable, well groomed, well developed, bs1 Behavior is calm, cooperative, appropriate for age. Pain: Denies pain. Neuro: Level of Consciousness is awake, alert, obeys commands, Oriented to person, place, time, situation, Speech is normal, Facial symmetry appears normal. Cardiovascular: Denies chest pain, Heart tones S1 S2 present Capillary refill < 3 seconds Patient's skin is warm and dry. Rhythm is regular. Respiratory: Reports shortness of breath at rest on exertion Airway is patent Respiratory effort is even, unlabored, Respiratory pattern is regular, symmetrical, Breath sounds are clear bilaterally. GI: Abdomen is flat, non-distended, Bowel sounds present X 4 quads. Reports diarrhea. : No deficits noted. EENT: No deficits noted. Derm: Skin is intact, Skin is pink, warm \\T\\ dry. Musculoskeletal: No signs and/or symptoms reported regarding the musculoskeletal system. Circulation, motion, and sensation intact. Capillary refill < 3 seconds, Range of motion: intact in all extremities. 19:48 Reassessment: Patient asked if he would like to be put in a gown to go to 2nd floor, bs1 patient refused. Vital Signs: 14:19 BP 161 / 74; Pulse 59; Resp 22; Temp 97.8; Pulse Ox 98% on R/A; Weight 71.67 kg; Height aj 5 ft. 10 in. (177.80 cm); 16:10 BP 142 / 70; Pulse 62; Resp 18 S; Pulse Ox 98% on R/A; sg 18:30 BP 144 / 62; Pulse 66; Resp 19; Temp 97.9; Pulse Ox 99% on R/A; Pain 0/10; sg 19:20 BP 167 / 70; Pulse 63; Resp 16; Temp 98(O); Pulse Ox 100% on R/A; Pain 0/10; bs1 14:19 Body Mass Index 22.67 (71.67 kg, 177.80 cm) aj ED Course: 14:13 Patient arrived in ED. sb2 14:13 Alberto Zurita MD is Private Physician. sb2 14:17 Triage completed. aj 14:19 Arm band placed on left wrist. Patient placed in an exam room. aj 14:25 Patient has correct armband on for positive identification. Bed in low position. Call sg light in reach. Side rails up X2. Pulse ox on. NIBP on. Warm blanket given. Head of bed elevated. 14:30 No provider procedures requiring assistance completed. sg 14:31 Rhonda Robbins, RN is Primary Nurse. aj 14:36 Abdiaziz Corley PA is PHCP. cp 14:36 Donis Mcconnell MD is Attending Physician. cp 15:21 X-ray completed. Portable x-ray completed in exam room. Patient tolerated procedure bb2 well. 15:22 XRAY Chest (1 view) In Process Unspecified. EDMS 16:02 EKG done, by structures technician. reviewed by Abdiaziz AKHTAR. 3 16:20 Initial lab(s) drawn, by mi, sent to lab. Inserted saline lock: 20 gauge in right mh5 antecubital area, using aseptic technique. Blood collected. 16:57 Alberto Zurita MD is Hospitalizing Provider. cp 17:15 Primary Nurse role handed off by Rhonda Robbins, JIM sg 17:15 Socrates Jenkins, JIM is Primary Nurse. sg 18:31 Giovanny García MD is Private Physician. sg 19:36 Patient admitted, IV remains in place. intact. bs1 Administered Medications: 15:31 Drug: Albuterol - atroVENT (3:1) (2.5 mg - 0.5 mg) 3 ml Route: Nebulizer; sg 15:52 Follow up: Response: No adverse reaction sg 17:37 Drug: Lasix 40 mg Route: IVP; Site: right antecubital; sg 19:49 Follow up: Response: No adverse reaction bs1 Outcome: 16:57 Decision to Hospitalize by Provider. cp 19:35 Admitted to Med/surg accompanied by tech, via wheelchair, room 205, with chart, Report bs1 called to JIM Betancourt 19:35 Condition: stable 19:35 Instructed on the need for admit, Demonstrated understanding of instructions. 19:49 Patient left the ED. bs1 Signatures: Dispatcher [employer] EDSocrates Aquino, Rhonda Hardwick RN, RN RN aj Page, Corey, PA PA cp Martinez, Maria [facility] Emily Kelley 2 Emily Kraft RN RN bs1 Wendi Reid 2 Dorene Barroso 3
[2017-07-19] MEDS ORDERED: ALBUTEROL 2.5 MG/3 ML NEB SOL NEB PRN (17:43)
[2017-07-19] MEDS ORDERED: ONDANSETRON 4 MG/2 ML VIAL IV PRN (17:43)
[2017-07-19] MEDS ORDERED: ACETAMINOPHEN 500 MG TAB PO PRN (17:43)
[2017-07-19] MEDS ORDERED: IPRATROPIUM BROM 0.5MG/2.5ML NEB PRN (17:43)
[2017-07-19] MEDS ORDERED: FUROSEMIDE 40 MG/4 ML VIAL ONE (17:54)
[2017-07-19 20:22] VITALS: BMI 24.0
--- NOTE | 2017-07-19 22:40 | EKG ---
Test Date: 2017-07-19 Test Time: 15:16:57 Early Years Teacher: SHER MEASUREMENT RESULTS: Intervals: Rate: 60 [place]: QRSD: 186 QT: 488 QTc: 488 [place]: P: WA: QRS: -71 T: 122 INTERPRETIVE STATEMENTS: Ventricular-paced rhythm Abnormal ECG Compared to ECG 07/03/2017 02:18:10 No significant changes Electronically Signed On 07-19-17 22:39:35 CDT by Ajit Neal
[2017-07-20 05:19] VITALS: O2SAT 96
[2017-07-20 06:05] LABS: Absolute Lymphocytes (CBC) 1.5 K/uL (0.7-4.9); Absolute Monocytes 0.6 K/uL (0.1-1.3); Absolute Neutrophil 4.5 K/uL (1.8-8.0); Basophils % 0.7 % (0-1.3); Hematocrit 36.7 % (39.6-49.0); MCH 28.4 pg (27.0-35.0); MCV 87.4 fL (80-100); MPV 10.8 fL (7.6-11.3); Monocytes % 8.7 % (3.3-12.3)
[2017-07-20] MEDS ORDERED: TRAMADOL HCL 50 MG TAB PO PRN (08:28)
[2017-07-20] MEDS ORDERED: FUROSEMIDE 20 MG/ 2ML VIAL IV SCH (09:00)
[2017-07-20] MEDS ORDERED: LIOTHYRONINE SOD 5 MCG TAB PO SCH (09:00)
[2017-07-20] MEDS ORDERED: APIXABAN 5 MG TABLET PO SCH (09:00)
[2017-07-20 10:21] VITALS: BP 180/78; TEMP 97
--- NOTE | 2017-07-20 10:44 | P.SSS ---
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 He has been having chronic diarrhea for over 6 months 10-15 bowel movements a day. After he had a bowel resection. He had an episode yesterday after waking his dog. The patient felt near syncopal and came to the hospital. He was found to have an acute elevation of his creatine. Was a bit dizzy and short of breath. Was admitted for observations. The patient is feeling much better this morning. He is eating normally. He has been to see Dr. Wright in [place]. Who has refered him to another specialist. Allergies No Known Allergies Allergy (Unverified 06/20/17 08:05) Home Medications: Apixaban [Eliquis] 5 mg PO BID 01/30/17 Metoprolol Tartrate [Lopressor*] 50 mg PO BID 01/30/17 Liothyronine Sodium [Cytomel] 5 mcg PO DAILY 06/20/17 Loperamide [Imodium*] 2 mg PO DAILY 06/20/17 Tramadol HCl [Ultram] 50 mg PO Q6HR PRN 06/20/17 Fluticasone Propionate [Flovent Diskus] 1 spray NS DAILY 07/19/17 - Past Medical/Surgical History Has patient received pneumonia vaccine in the past: Yes Diabetic: Yes -: HTN -: GERD -: DM -: Irregular Heart Rate -: Depression -: Left knee replacement -: Pacemaker -: Left shoulder sx -: Small/Large Bowel resection r/t obstruction -: Cardiac Bypass - Family History Father -: Heart disease Notes: heart attack Mother -: Lung disease Notes: emphysema - Social History Smoking Status: Never smoker Alcohol use: No CD- Drugs: No Caffeine use: Yes Place of Residence: Home Review of Systems 10-point ROS is otherwise unremarkable Gastrointestinal: Diarrhea (chronic) Physical Examination - Vital Signs Temperature: 97 F Blood Pressure: 180/78 Pulse: 68 Respirations: 20 Pulse Ox (%): 98 - Physical Exam General: Alert, In no apparent distress HEENT: Atraumatic, PERRLA, Mucous membr. moist/pink, EOMI, Sclerae nonicteric Neck: Supple, 2+ carotid pulse no bruit, No LAD, Without JVD or thyroid abnormality Respiratory: Clear to auscultation bilaterally, Normal air movement Cardiovascular: Regular rate/rhythm, Normal S1 S2 Gastrointestinal: Normal bowel sounds, No tenderness Musculoskeletal: No tenderness Integumentary: No rashes Neurological: Normal gait, Normal speech, Normal strength at 5/5 x4 extr, Normal tone, Normal affect Lymphatics: No axilla or inguinal lymphadenopathy - Studies Laboratory Data (last 24 hrs) 07/19/17 15:50: PT 18.5 H, INR 1.56, APTT 29.5 07/19/17 15:50: WBC 7.5, Hgb 12.0 L, Hct 36.4 L, Plt Count 188 07/19/17 15:50: B-Natriuretic Peptide 1634 H 07/19/17 15:50: Sodium 137, Potassium 3.6, BUN 16, Creatinine 1.30 H, Glucose 127 H, Magnesium 1.6 L, Total Bilirubin 1.0, AST 35, ALT 36, Alkaline Phosphatase 87 - Diagnosis (Problem(s)) (1) Acute renal failure Current Visit: Yes Status: Acute Plan: Has resolved this morning. Will hold the lasix started in the ER. If the patient is ambulating well. We can discharge him home Qualifiers: Acute renal failure type: unspecified Qualified Code(s): N17.9 - Acute kidney failure, unspecified (2) Chronic diarrhea Current Visit: No Status: Acute Plan: This has been a long-term problem since his resection. We are working him up as an outpatient. (3) Hypertension Current Visit: No Status: Acute Plan: restart his home medications. Qualifiers: Hypertension type: essential hypertension Qualified Code(s): I10 - Essential (primary) hypertension Treatment Summary: Patient creatine is returning to baseline. If he continues to improve we can discharge him home and have him follow up in the office. - Disposition Disposition: ROUTINE DISCHARGE Condition: GOOD Diet: Regular Activity: Ad elito Physician Review: Patient Assessed, Agree with Above Assessment and Plan Critical Care: No Time Spent Managing Pts Care (In Minutes): 45
[2017-07-20] MEDS ORDERED: METOPROLOL TAR 50 MG TAB PO SCH (21:00)
[2017-07-21] MEDS ORDERED: LOPERAMIDE HCL 2 MG CAPSULE PO SCH (09:00)
[2017-07-21] MEDS ORDERED: HOME MED 1 EA UNK (Fluticasone Propionate [Flovent Diskus] 1 SPRAY) NS SCH (09:00)
== END 2017-07-20 13:30 | disposition home or self-care (01) ==
LOC: ER 14:10 → ERHOLD 16:57 → 2ND 19:19
PROVIDERS: ADMIT Internal Medicine; ATTEND Internal Medicine
DX: N17.9 Acute kidney failure, unspecified (principal); R19.7 Diarrhea, unspecified; K21.9 Gastro-esophageal reflux disease without esophagitis; E11.9 Type 2 diabetes mellitus without complications; I10 Essential (primary) hypertension; Z96.652 Presence of left artificial knee joint; Z95.0 Presence of cardiac pacemaker; Z95.1 Presence of aortocoronary bypass graft
CPT/HCPCS: 36415; 71045; 80048 ×2; 80076; 81003; 83735; 83880 ×2; 85025 ×2; 85610; 85730; 93005; 94640; 96374; 99285; G0378 ×2; J1940

== ENCOUNTER 2017-07-26 22:47 | Observation (INO) | payer OTHER ==
[2017-07-27 00:37] LABS: Urine Blood NEGATIVE (NEG); Urine Glucose NEGATIVE (NEG); Urine Protein TRACE (NEG); Urine Specific Gravity 1.015 (1.005-1.030)
[2017-07-27] MEDS ORDERED: PANTOPRAZOLE 40 MG INJ ONE (00:40)
[2017-07-27 00:50] LABS: Absolute Lymphocytes (CBC) 0.9 K/uL (0.7-4.9); Absolute Monocytes 0.3 K/uL (0.1-1.3); Absolute Neutrophil 5.3 K/uL (1.8-8.0); Basophils % 0.4 % (0-1.3); Eosinophils % 0.5 % (0-4.4); Hematocrit 35.6 % (39.6-49.0); Lymphocytes % 14.1 % (15.3-44.8); MCH 28.8 pg (27.0-35.0); MCV 87.2 fL (80-100); MPV 10.4 fL (7.6-11.3); Monocytes % 4.3 % (3.3-12.3); Protime INR 1.41; RBC Red Blood Cell Count 4.08 M/uL (4.33-5.43)
[2017-07-27 01:16] LABS: Potassium 3.5 mEq/L (3.6-5.0)
[2017-07-27 01:22] LABS: Albumin 3.9 g/dL (3.2-5.5); Bilirubin Direct 0.2 mg/dL (0-0.2); Bilirubin Total 0.7 mg/dL (0.3-1.2); Magnesium 1.6 mg/dL (1.8-2.5); Protein, Total 7.5 g/dL (6.0-8.3)
[2017-07-27 01:24] LABS: CKMB Creatine Kinase MB 2.2 ng/ml (0.3-4.0)
[2017-07-27] MEDS ORDERED: LORazepam 2 MG/ML VIAL ONE (01:58)
--- NOTE | 2017-07-27 02:10 | EDPHYS ---
Physician Documentation [facility] Name: Sean Pascual Age: 76 yrs Sex: Male : 1940 Arrival Date: 07/26/2017 Time: 22:50 Bed 24 Private MD: Alberto Zurita ED Physician Abdiaziz Brooke HPI: 07/27 00:31 This 76 yrs old Male presents to ER via Ambulatory with complaints of cant aubree sleep. 00:31 The patient has shortness of breath with light activity. Onset: The symptoms/episode aubree began/occurred last night. Duration: The symptoms are continuous, and are unchanged since they started. The patient's shortness of breath has no apparent modifying factors. The patient or guardian reports chest pain that is located primarily in the anterior chest wall. Onset: last night. The patient presents with abdominal pain in the epigastric area, in the upper abdomen, abdominal distention in the upper abdomen. Onset: The symptoms/episode began/occurred 3 day(s) ago. 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 - Social history:: Smoking status: unknown. - Ebola Screening: : Patient denies travel to an Ebola-affected area in the 21 days before illness onset No symptoms or risks identified at this time. - Family history:: not pertinent. ROS: 07/27 00:31 Constitutional: Negative for fever, chills, and weight loss, Eyes: Negative for injury, aubree pain, redness, and discharge, ENT: Negative for injury, pain, and discharge, Neck: Negative for injury, pain, and swelling, Cardiovascular: Negative for chest pain, palpitations, and edema, Respiratory: Negative for shortness of breath, cough, wheezing, and pleuritic chest pain, Abdomen/GI: Negative for abdominal pain, nausea, vomiting, diarrhea, and constipation, Back: Negative for injury and pain, : Negative for injury, bleeding, discharge, and swelling, MS/Extremity: Negative for injury and deformity, Neuro: Negative for headache, weakness, numbness, tingling, and seizure, Psych: Negative for depression, anxiety, suicide ideation, homicidal ideation, and hallucinations, Allergy/Immunology: Negative for hives, rash, and allergies, Endocrine: Negative for neck swelling, polydipsia, polyuria, polyphagia, and marked weight changes. Skin: Positive for pallor. Exam: 00:31 Constitutional: This is a well developed, well nourished patient who is awake, alert, aubree and in no acute distress. Head/Face: Normocephalic, atraumatic. Eyes: Pupils equal round and reactive to light, extra-ocular motions intact. Lids and lashes normal. Conjunctiva and sclera are non-icteric and not injected. Cornea within normal limits. Periorbital areas with no swelling, redness, or edema. ENT: Nares patent. No nasal discharge, no septal abnormalities noted. Tympanic membranes are normal and external auditory canals are clear. Oropharynx with no redness, swelling, or masses, exudates, or evidence of obstruction, uvula midline. Mucous membranes moist. Neck: Trachea midline, no thyromegaly or masses palpated, and no cervical lymphadenopathy. Supple, full range of motion without nuchal rigidity, or vertebral point tenderness. No Meningismus. Chest/axilla: Normal chest wall appearance and motion. Nontender with no deformity. No lesions are appreciated. Cardiovascular: Regular rate and rhythm with a normal S1 and S2. No gallops, murmurs, or rubs. Normal PMI, no JVD. No pulse deficits. Respiratory: Lungs have equal breath sounds bilaterally, clear to auscultation and percussion. No rales, rhonchi or wheezes noted. No increased work of breathing, no retractions or nasal flaring. Abdomen/GI: Soft, non-tender, with normal bowel sounds. No distension or tympany. No guarding or rebound. No evidence of tenderness throughout. Back: No spinal tenderness. No costovertebral tenderness. Full range of motion. Male : Normal genitalia with no discharge or lesions. Skin: Warm, dry with normal turgor. Normal color with no rashes, no lesions, and no evidence of cellulitis. MS/ Extremity: Pulses equal, no cyanosis. Neurovascular intact. Full, normal range of motion. Neuro: Awake and alert, GCS 15, oriented to person, place, time, and situation. Cranial nerves II-XII grossly intact. Motor strength 5/5 in all extremities. Sensory grossly intact. Cerebellar exam normal. Normal gait. Psych: Awake, alert, with orientation to person, place and time. Behavior, mood, and affect are within normal limits. Vital Signs: 07/26 23:17 BP 152 / 61; Pulse 61; Resp 18; Pulse Ox 99% ; tl3 07/27 01:06 BP 159 / 72; Pulse 60; Resp 18; Pulse Ox 97% ; tl3 02:00 BP 158 / 67; Pulse 60; Resp 17; Pulse Ox 97% on R/A; rk2 02:30 BP 150 / 70; Pulse 66; Resp 18; Pulse Ox 97% on R/A; rk2 MDM: 07/26 23:15 Patient medically screened. [facility] 07/27 00:33 Data reviewed: vital signs, nurses notes, lab test result(s), EKG, radiologic studies, aubree plain films. 07/26 23:39 Order name: Basic Metabolic Panel; Complete Time: 02:06 [facility] 07/26 23:39 Order name: BNP; Complete Time: 02:06 [facility] 07/26 23:39 Order name: CBC with Diff; Complete Time: 01:20 [facility] 07/26 23:39 Order name: Ckmb; Complete Time: 02:06 [facility] 07/26 23:39 Order name: CPK; Complete Time: 02:06 [facility] 07/26 23:39 Order name: LFT's; Complete Time: 02:06 [facility] 07/26 23:39 Order name: Magnesium; Complete Time: 02:06 [facility] 07/26 23:39 Order name: PT-INR; Complete Time: 01:20 [facility] 07/26 23:39 Order name: Ptt, Activated; Complete Time: 01:20 [facility] 07/26 23:39 Order name: Troponin (emerg Dept Use Only); Complete Time: 02:06 [facility] 07/26 23:39 Order name: Lipase; Complete Time: 02:06 [facility] 07/26 23:39 Order name: Urine Culture [facility] 07/27 00:24 Order name: Urine Dipstick--Ancillary (enter results); Complete Time: 01:20 rg2 07/27 01:27 Order name: Ckmb [facility] 07/26 23:39 Order name: XRAY Chest (1 view) [facility] 07/27 01:27 Order name: Creatine Phosphokinase [facility] 07/27 01:27 Order name: Troponin (emerg Dept Use Only) [facility] 07/27 02:25 Order name: Basic Metabolic Panel [facility] 07/27 02:25 Order name: Basic Metabolic Panel [facility] 07/27 02:25 Order name: Troponin I [facility] 07/27 02:25 Order name: Troponin I [facility] 07/27 02:25 Order name: Troponin I [facility] 07/27 02:25 Order name: Echo with Doppler [facility] 07/27 02:25 Order name: CBC with Automated Diff [facility] 07/27 02:25 Order name: CBC with Automated Diff [facility] 07/27 02:25 Order name: Chest Single View [facility] 07/27 02:25 Order name: Chest Single View [facility] 07/26 23:39 Order name: EKG; Complete Time: 23:40 [facility] 07/26 23:39 Order name: Cardiac monitoring; Complete Time: 00:43 [facility] 07/26 23:39 Order name: EKG - Nurse/Tech; Complete Time: 00:42 [facility] 07/26 23:39 Order name: IV Saline Lock; Complete Time: 00:42 [facility] 07/26 23:39 Order name: Labs collected and sent; Complete Time: 00:42 [facility] 07/26 23:39 Order name: O2 Per Protocol; Complete Time: 00:42 [facility] 07/26 23:39 Order name: O2 Sat Monitoring; Complete Time: 00:42 [facility] 07/26 23:39 Order name: Urine Dipstick-Ancillary (obtain specimen); Complete Time: 00:42 [facility] 07/27 01:27 Order name: Repeat Cardiac Enzymes at: 200am; Complete Time: 02:17 [facility] 07/27 02:24 Order name: CONS Physician Consult [facility] 07/27 02:25 Order name: Consistent Carb (ADA) [address] [facility] 07/27 02:25 Order name: EKG Electrocardiogram EDMS 07/27 02:25 Order name: EKG Electrocardiogram EDMS 07/27 02:25 Order name: EKG Electrocardiogram EDMS 07/27 02:25 Order name: EKG Electrocardiogram EDMS 07/27 02:25 Order name: EKG Electrocardiogram EDMS 07/27 02:25 Order name: EKG Electrocardiogram EDMS 07/27 02:25 Order name: EKG Electrocardiogram EDMS 07/27 02:25 Order name: EKG Electrocardiogram EDMS 07/27 02:25 Order name: EKG Electrocardiogram EDMS Administered Medications: 00:27 CANCELLED (Duplicate Order): Aspirin Chewable Tablet 162 mg PO once aubree 00:28 Drug: ProTONIX 40 mg Route: IVP; Infused Over: 3 mins; Site: right antecubital; tl3 01:07 Follow up: Response: No adverse reaction tl3 02:06 Drug: Ativan 1 mg Route: IVP; Site: right antecubital; rk2 02:41 Follow up: Response: No adverse reaction rk2 02:16 CANCELLED (medication changed): Potassium Chloride 20 mEq PO once rk2 02:16 Drug: Rocephin - (cefTRIAXone) 1 grams Route: IVPB; Infused Over: 30 mins; Site: right rk2 antecubital; 02:39 Follow up: Response: No adverse reaction; IV Status: Completed infusion; IVP rk2 02:17 Drug: Potassium Chloride 20 mEq Route: PO; rk2 02:40 Follow up: Response: No adverse reaction rk2 02:41 Not Given (Pt. already took): Eliquis 5 mg PO once; give if not talen last night rk2 02:46 Drug: Lasix 20 mg Route: IVP; Site: right antecubital; rk2 03:12 Follow up: Response: No adverse reaction rk2 Disposition: 07/27/17 02:09 Hospitalization ordered by Alberto Zurita for Inpatient Admission. Preliminary diagnosis are Insomnia, Chest pain, unspecified, Cystitis, Hypomagnesemia, Hypokalemia. - Bed requested for Telemetry/MedSurg (Inpatient). - Status is Inpatient Admission. rk2 - Condition is Stable. - Problem is new. - Symptoms have improved. UTI on Admission? Yes Signatures: Dispatcher [employer] EDNadiya Bolden RN RN Abdiaziz Hill MD MD cha Kidder, Rhonda RN RN rk2 Inna Driver, RN RN tl3 Corrections: (The following items were deleted from the chart) 00:27 00:21 Aspirin Chewable Tablet 162 mg PO once ordered. [facility] 02:16 01:24 Potassium Chloride Liquid 20 mEq PO once ordered. [facility] rk2 02:47 02:09 Hospitalization Ordered by Alberto Zurita MD for Inpatient Admission. Preliminary diagnosis is Insomnia; Chest pain, unspecified; Cystitis; Hypomagnesemia; Hypokalemia. Bed requested for Telemetry/MedSurg (Inpatient). Status is Inpatient Admission. Condition is Stable. Problem is new. Symptoms have improved. UTI on Admission? Yes. [facility] 03:13 02:47 07/27/2017 02:09 Hospitalization Ordered by Alberto Zurita MD for Inpatient rk2 Admission. Preliminary diagnosis is Insomnia; Chest pain, unspecified; Cystitis; Hypomagnesemia; Hypokalemia. Bed requested for Telemetry/MedSurg (Inpatient). Status is Inpatient Admission. Condition is Stable. Problem is new. Symptoms have improved. UTI on Admission? Yes. kl
--- NOTE | 2017-07-27 02:10 | ER ---
Nurse's Notes [facility] Name: Sean Pascual Age: 76 yrs Sex: Male : 1940 Arrival Date: 07/26/2017 Time: 22:50 Bed 24 Private MD: Alberto Zurita Diagnosis: Insomnia;Chest pain, unspecified;Cystitis;Hypomagnesemia;Hypokalemia Presentation: 07/26 23:11 Presenting complaint: Patient states: feeling anxious and can not sleep, has been awake tl3 for the last three days, has hx of insomnia PM Tylenol or Motrin do not help. Transition of care: patient was not received from another setting of care. Onset of symptoms was July 23, 2017. Risk Assessment: Do you want to hurt yourself or someone else? Patient reports no desire to harm self or others. Initial Sepsis Screen: Does the patient meet any 2 criteria? No. Patient's initial sepsis screen is negative. Does the patient have a suspected source of infection? No. Patient's initial sepsis screen is negative. Care prior to arrival: None. 23:11 Method Of Arrival: Ambulatory tl3 23:11 Acuity: TIERRA 4 tl3 Triage Assessment: 23:17 General: Appears slender, well groomed, well developed, well nourished, Behavior is tl3 cooperative, appropriate for age, anxious. Pain: Denies pain. EENT: No deficits noted. No signs and/or symptoms were reported regarding the EENT system. Neuro: Level of Consciousness is awake, alert, obeys commands, Oriented to person, place, time, situation, Appropriate for age. Cardiovascular: Heart tones S1 S2 present Patient's skin is warm and dry. Respiratory: Airway is patent Respiratory effort is even, unlabored, Respiratory pattern is regular, symmetrical. GI: Reports diarrhea, since bowel resection in 2017. : No deficits noted. No signs and/or symptoms were reported regarding the genitourinary system. Derm: No deficits noted. No signs and/or symptoms reported regarding the dermatologic system. Musculoskeletal: No deficits noted. No signs and/or symptoms reported regarding the musculoskeletal system. 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 - Social history:: Smoking status: unknown. - Ebola Screening: : Patient denies travel to an Ebola-affected area in the 21 days before illness onset No symptoms or risks identified at this time. - Family history:: not pertinent. Screenin:19 Abuse screen: Denies threats or abuse. Nutritional screening: No deficits noted. tl3 Tuberculosis screening: No symptoms or risk factors identified. Fall Risk Ambulatory Aid- Crutches/Cane/Walker (15 pts). Assessment: 23:19 Reassessment: No changes from previously documented assessment. daughter at bedside. tl3 07/27 01:06 Reassessment: Patient appears in no apparent distress at this time. No changes from tl3 previously documented assessment. Patient and/or family updated on plan of care and expected duration. Pain level reassessed. Patient is alert, oriented x 3, equal unlabored respirations, skin warm/dry/pink. pt resting well, awaiting lab results. 02:15 Reassessment: Patient appears in no apparent distress at this time. No changes from rk2 previously documented assessment. Patient and/or family updated on plan of care and expected duration. Pain level reassessed. Patient is alert, oriented x 3, equal unlabored respirations, skin warm/dry/pink. 03:05 Reassessment: Called report to receiving JIM Ashraf. rk2 Vital Signs: 07/26 23:17 BP 152 / 61; Pulse 61; Resp 18; Pulse Ox 99% ; tl3 07/27 01:06 BP 159 / 72; Pulse 60; Resp 18; Pulse Ox 97% ; tl3 02:00 BP 158 / 67; Pulse 60; Resp 17; Pulse Ox 97% on R/A; rk2 02:30 BP 150 / 70; Pulse 66; Resp 18; Pulse Ox 97% on R/A; rk2 ED Course: 07/26 22:50 Patient arrived in ED. am2 22:50 Alberto Zurita MD is Private Physician. am2 23:04 Inna Driver RN is Primary Nurse. tl3 23:13 Triage completed. tl3 23:15 Abdiaziz Brooke MD is Attending Physician. aubree 23:17 Arm band placed on right wrist. tl3 23:19 Patient has correct armband on for positive identification. Bed in low position. Call tl3 light in reach. Side rails up X 1. Adult w/ patient. 23:19 No provider procedures requiring assistance completed. Patient did not have IV access tl3 during this emergency room visit. 23:50 X-ray completed. Portable x-ray completed in exam room. Patient tolerated procedure kw well. 23:50 XRAY Chest (1 view) In Process Unspecified. EDMS 07/27 01:06 Report given to JIM Hodge. tl3 02:08 Alberto Zurita MD is Hospitalizing Provider. aubree Administered Medications: 00:27 CANCELLED (Duplicate Order): Aspirin Chewable Tablet 162 mg PO once aubree 00:28 Drug: ProTONIX 40 mg Route: IVP; Infused Over: 3 mins; Site: right antecubital; tl3 01:07 Follow up: Response: No adverse reaction tl3 02:06 Drug: Ativan 1 mg Route: IVP; Site: right antecubital; rk2 02:41 Follow up: Response: No adverse reaction rk2 02:16 CANCELLED (medication changed): Potassium Chloride 20 mEq PO once rk2 02:16 Drug: Rocephin - (cefTRIAXone) 1 grams Route: IVPB; Infused Over: 30 mins; Site: right rk2 antecubital; 02:39 Follow up: Response: No adverse reaction; IV Status: Completed infusion; IVP rk2 02:17 Drug: Potassium Chloride 20 mEq Route: PO; rk2 02:40 Follow up: Response: No adverse reaction rk2 02:41 Not Given (Pt. already took): Eliquis 5 mg PO once; give if not talen last night rk2 02:46 Drug: Lasix 20 mg Route: IVP; Site: right antecubital; rk2 03:12 Follow up: Response: No adverse reaction rk2 Intake: Outcome: 02:09 Decision to Hospitalize by Provider. aubree 03:12 Admitted to Tele rk2 03:12 Condition: good 03:12 Instructed on the need for admit. 03:13 Patient left the ED. rk2 Signatures: Dispatcher [employer] EDAbdiaziz Suarez MD MD cha Whitley, Kimberlee kw Moreno, Amanda 2 Ayesha Quintero RN RN rk2 Inna Driver RN RN tl3 Corrections: (The following items were deleted from the chart) 07/26 23:21 23:17 GI: No deficits noted. No signs and/or symptoms were reported involving the tl3 gastrointestinal system. tl3
[2017-07-27] MEDS ORDERED: POTASSIUM CL SA 10 MEQ TAB PO ONE (02:12)
[2017-07-27] MEDS ORDERED: CEFTRIAXONE/SWI 1gm 1 GM/10 ML SYR ONE (02:13)
[2017-07-27] MEDS ORDERED: ONDANSETRON 4 MG/2 ML VIAL IV PRN (02:14)
[2017-07-27] MEDS ORDERED: ACETAMINOPHEN 500 MG TAB PO PRN (02:14)
[2017-07-27] MEDS ORDERED: MORPHINE 4 MG/ML SYR IV PRN (02:14)
[2017-07-27] MEDS ORDERED: GLUCAGON 1 MG/VIAL IM PRN (02:18)
[2017-07-27] MEDS ORDERED: D50W 25 GM/50 ML SYRINGE IV PRN (02:18)
[2017-07-27 02:44] LABS: CKMB Creatine Kinase MB 2.1 ng/ml (0.3-4.0)
[2017-07-27 04:09] VITALS: BMI 23.7
[2017-07-27] MEDS ORDERED: INSULIN -REGULAR HUMAN 50 UNIT/0.5 ML ML SQ SCH (07:30)
[2017-07-27] MEDS ORDERED: REGADENOSON 0.4 MG/5 ML SYR IV ONE (07:43)
--- NOTE | 2017-07-27 08:25 | EKG ---
Test Date: 2017-07-27 Test Time: 00:49:05 Babbitt Spinner: WINNIE MEASUREMENT RESULTS: Intervals: Rate: 62 DC: QRSD: 190 QT: 502 QTc: 509 [place]: P: DC: QRS: -73 T: 112 INTERPRETIVE STATEMENTS: Ventricular-paced rhythm Abnormal ECG Compared to ECG 07/19/2017 15:16:57 No significant changes Electronically Signed On 07-27-17 08:24:28 CDT by Luis Moncada
--- NOTE | 2017-07-27 08:45 | RAD REPORT ---
EXAM DESCRIPTION: RAD - Chest Single View - 07/26/2017 11:52 pm CLINICAL HISTORY: Diabetes, hypertension, chest pain COMPARISON: 07/19/2017 FINDINGS: Portable technique limits examination quality. The lungs appear emphysematous but grossly clear. The heart is mildly enlarged in size with several p acer wires noted. No displaced fractures. IMPRESSION: No acute intrathoracic process suspected.
[2017-07-27] MEDS ORDERED: METOPROLOL TAR 50 MG TAB PO SCH (09:00)
[2017-07-27] MEDS ORDERED: MAGNESIUM OXIDE 400 MG TAB PO SCH (09:00)
[2017-07-27] MEDS ORDERED: APIXABAN 5 MG TABLET PO SCH (09:00)
[2017-07-27] MEDS ORDERED: FUROSEMIDE 20 MG/ 2ML VIAL IV SCH (09:00)
[2017-07-27] MEDS ORDERED: CEFTRIAXONE 1 GM/NS 50 ML 1 GM/50 ML BAG IV SCH (09:00)
[2017-07-27] MEDS ORDERED: POTASSIUM 25 MEQ EFFERV TAB PO SCH (09:00)
[2017-07-27 09:29] VITALS: O2SAT 97
--- NOTE | 2017-07-27 10:33 | P.SSS ---
Patient History Date of Service: 07/27/17 Primary Care Provider: Parminder Reason for admission: Copd exacerbation History of Present Illness: Patient is an office patient of [facility]. Came to the office after a week of URTI. He was getting short of breath. Not moving much air on auscultation. The patient was started on prednisone from the office. Last evening he started feeling palpations and anxiety. Did not have any complaints of shortness of breath. However the anxiety made him come to the ER. Allergies No Known Allergies Allergy (Verified 07/27/17 04:34) Home Medications: Apixaban [Eliquis] 5 mg PO BID 01/30/17 Metoprolol Tartrate [Lopressor*] 50 mg PO BID 01/30/17 Liothyronine Sodium [Cytomel] 5 mcg PO DAILY 06/20/17 Fluticasone Propionate [Flovent Diskus] 1 spray NS DAILY 07/19/17 Diphenoxylate HCl/Atropine [Diphenoxylate-Atrop 2.5-0.025] 2 tab PO TID Ferrous Sulfate [Iron] 1 tab PO DAILY 07/27/17 Loratadine 10 mg PO DAILY 07/27/17 Multivitamin [Multivitamins] 1 cap PO DAILY 07/27/17 predniSONE [Prednisone*] 10 mg PO BID 07/27/17 - Past Medical/Surgical History Has patient received pneumonia vaccine in the past: Yes Diabetic: Yes -: HTN -: GERD -: DM -: Irregular Heart Rate -: Depression -: CHF -: Left knee replacement -: Pacemaker -: Left shoulder sx -: Small/Large Bowel resection r/t obstruction -: Cardiac Bypass - Family History Father -: Heart disease Notes: heart attack Mother -: Lung disease Notes: emphysema - Social History Smoking Status: Unknown if ever smoked Alcohol use: No CD- Drugs: No Caffeine use: Yes Place of Residence: Home Review of Systems 10-point ROS is otherwise unremarkable General: Other (anxiety) Physical Examination - Vital Signs Temperature: 97.1 F Blood Pressure: 158/73 Pulse: 65 Respirations: 18 Pulse Ox (%): 99 - Physical Exam General: Alert, In no apparent distress HEENT: Atraumatic, PERRLA, Mucous membr. moist/pink, EOMI, Sclerae nonicteric Neck: Supple, 2+ carotid pulse no bruit, No LAD, Without JVD or thyroid abnormality Respiratory: Clear to auscultation bilaterally, Normal air movement Cardiovascular: Regular rate/rhythm, Normal S1 S2 Gastrointestinal: Normal bowel sounds, No tenderness Musculoskeletal: No tenderness Integumentary: No rashes Neurological: Normal gait, Normal speech, Normal strength at 5/5 x4 extr, Normal tone, Normal affect Lymphatics: No axilla or inguinal lymphadenopathy - Studies Laboratory Data (last 24 hrs) 07/27/17 00:15: PT 16.7 H, INR 1.41, APTT 30.3 07/27/17 00:15: WBC 6.6, Hgb 11.8 L, Hct 35.6 L, Plt Count 198 D 07/27/17 00:15: B-Natriuretic Peptide 1510 H 07/27/17 00:15: Sodium 138, Potassium 3.5 L, BUN 14, Creatinine 1.02, Glucose 126 H, Magnesium 1.6 L, Total Bilirubin 0.7, AST 41, ALT 42, Alkaline Phosphatase 94, Lipase 36 - Diagnosis (Problem(s)) (1) COPD exacerbation Current Visit: Yes Status: Acute Plan: Patient is doing better on the prednisone. Unfortunately anxiety can be a side effect. He is only on a 6 day course. Have discussed with him how this is a normal side effect of prednisone. If he continues to do well we can discharge him this afternoon . (2) Hypertension Onset Date: 07/20/17 Current Visit: No Status: Acute Plan: slightly elevated this may also be a steroid affect Qualifiers: Hypertension type: essential hypertension Qualified Code(s): I10 - Essential (primary) hypertension (3) Pacemaker Current Visit: No Status: Acute Plan: Mild elevation of troponin. Will hold off on cardiology consult. We can refer him back to his [facility] as an outpatient. also though his bnp is elevated has a clear cxr and no signs of fluid overload. Treatment Summary: Patient was placed in observation on a monitor. Doing much better this morning. Will observe him this morning if he continues to stay stable we can discharge him home. - Disposition Disposition: ROUTINE DISCHARGE Condition: GOOD Diet: AHA Activity: Ad eliot Physician Review: Patient Assessed, Agree with Above Assessment and Plan Critical Care: No Time Spent Managing Pts Care (In Minutes): 45
[2017-07-27 12:23] VITALS: BP 161/69; TEMP 97.4
--- NOTE | 2017-07-27 14:23 | CON ---
Date of Consultation: 07/27/[address] Zurita's service on 07/27/2017. I saw the patient on 07/27/2017. Reason For Consultation: Shortness of breath and inability to sleep. History Of Present Illness: Mr. Pascual is a 76-year-old white male. He was just recently in the [facility] for what may have been a TIA and hypertensive crisis. He had a negative echocardiogram then. He comes in today with inability to sleep well, short of breath. BNP was 1510, troponin 0.05. The p atient did not have any chest pain. He has a history of pacemaker, hypertension, TIA, has seen Dr. Mary Kay mena and Dr. Mooney before. According to him, his pacemaker was checked recently. Allergies: NONE. Review of Systems: Negative. Social History: Negative. Family History: Negative. Medications: At home include Eliquis, inhalers, metoprolol, and prednisone. Physical Examination: Vital Signs: Stable. Paced rhythm. Afebrile. HEENT: Negative. Neck: Supple with no bruit. Chest: Clear to auscultation and percussion. Cardiac: Revealed a regular rhythm and rate without any murmurs, gallops, or rubs. Abdomen: Benign. Extremities: Revealed no clubbing, cyanosis, or edema. Diagnostic Data: As stated earlier. Impression And Plan: 1.Possible acute exacerbation of chronic diastolic congestive heart failure. 2.Atrial fibrillation, on Eliquis, status post pacemaker. 3.Hypertension, controlled. 4.Possible history of transient ischemic attack, resolved. 5.Chronic obstructive pulmonary disease. 6.Steroid therapy. 7.Elevated troponin and BNP, possibly secondary to chronic diastolic congestive heart failure. He j ust had an echo less than a month ago and I do not see the need to repeat this. I think we need to g ently diurese him. I think we need to rule out coronary artery disease as the cause of his symptoms. I will follow him along with Dr. Zurita. CHRIS/MODL Voice ID: [id number] Report ID: [id number]
[2017-07-27] MEDS ORDERED: CEFTRIAXONE/SWI 1gm 1 GM/10 ML SYR IV SCH (21:00)
== END 2017-07-27 13:33 | disposition home or self-care (01) ==
LOC: ER 22:47 → ERHOLD 07-27 02:41 → 4TH 07-27 02:50
PROVIDERS: ADMIT Internal Medicine; ATTEND Internal Medicine
DX: J44.1 Chronic obstructive pulmonary disease with (acute) exacerbation (principal); K21.9 Gastro-esophageal reflux disease without esophagitis; I11.0 Hypertensive heart disease with heart failure; I50.32 Chronic diastolic (congestive) heart failure; I48.91 Unspecified atrial fibrillation; Z96.652 Presence of left artificial knee joint; Z95.0 Presence of cardiac pacemaker; Z95.1 Presence of aortocoronary bypass graft
CPT/HCPCS: 36415; 71045; 80048; 80076; 81003; 82550 ×2; 82553 ×2; 82962 ×2; 83690; 83735; 83880; 84484 ×4; 85025; 85610; 85730; 87086; 93005; 96365; 96375; 99285; C9113; G0378 ×2; J0696; J1940 ×2; 87088; J2785

== ENCOUNTER 2017-08-20 11:35 | Inpatient (IN) | payer OTHER ==
--- NOTE | 2017-08-20 12:31 | RAD REPORT ---
EXAM DESCRIPTION: RAD - Chest Single View - 08/20/2017 12:24 pm CLINICAL HISTORY: shortness of breath Chest pain. COMPARISON: Chest Single View dated 07/26/2017; Chest Single View dated 07/19/2017; Chest Single View d ated 07/03/2017; Chest Single View dated 06/19/2017 FINDINGS: Portable technique limits examination quality. Mild interstitial pulmonary edema seen. The heart is normal in size. No displaced fractures.Pacemaker device is in place. Old left-sided pacer wiring is present. IMPRESSION: Mild CHF/ volume overload pattern suspected.
[2017-08-20] MEDS ORDERED: FUROSEMIDE 20 MG/ 2ML VIAL ONE (12:33)
[2017-08-20] MEDS ORDERED: IPRATROPIUM BROM 0.5MG/2.5ML ONE (12:33)
[2017-08-20] MEDS ORDERED: ALBUTEROL 2.5 MG/3 ML NEB SOL ONE (12:33)
[2017-08-20 12:45] LABS: Absolute Lymphocytes (CBC) 1.4 K/uL (0.7-4.9); Absolute Monocytes 0.4 K/uL (0.1-1.3); Absolute Neutrophil 5.3 K/uL (1.8-8.0); Basophils % 0.7 % (0-1.3); Hematocrit 36.9 % (39.6-49.0); Lymphocytes % 19.4 % (15.3-44.8); MCH 29.4 pg (27.0-35.0); MCV 89.4 fL (80-100); MPV 10.9 fL (7.6-11.3); Monocytes % 5.8 % (3.3-12.3); RBC Red Blood Cell Count 4.13 M/uL (4.33-5.43)
[2017-08-20 12:48] LABS: Protime INR 1.49
[2017-08-20 13:02] LABS: Albumin 3.7 g/dL (3.4-5.0); Bilirubin Direct 0.4 mg/dL (0-0.2); CKMB Creatine Kinase MB 3.1 ng/mL (0.3-3.6); Magnesium 1.7 mg/dL (1.8-2.4); Potassium 3.4 mmol/L (3.5-5.1); Protein, Total 7.6 g/dL (6.4-8.2)
[2017-08-20] MEDS ORDERED: ASPIRIN 81 MG CHEWABLE TABLET ONE (13:33)
--- NOTE | 2017-08-20 14:14 | EDPHYS ---
Physician Documentation [facility] Name: Sean Pascual Age: 76 yrs Sex: Male : 1940 Arrival Date: 08/20/2017 Time: 11:41 Bed 16 Private MD: Alberto Zurita ED Physician Terry Mckeon HPI: 08/20 12:18 This 76 yrs old Male presents to ER via Ambulatory with complaints of jmm Breathing Difficulty. 12:18 The patient has shortness of breath at rest. Onset: The symptoms/episode began/occurred jmm gradually, 2 day(s) ago. Duration: The symptoms are continuous. The patient's shortness of breath is aggravated by nothing, is alleviated by nothing. Associated signs and symptoms: Pertinent negatives: chest pain, fever. The patient has experienced similar episodes in the past. This is a 76 year old male with a history of carcinoid cancer, DM, HTN, that presents to the ED with shortness of breath worsening throughout the past 2 days. Patient denies fever or chest pain. Patient also has a history of AMI, with pacemaker/defibrillator. . Historical: - Allergies: 11:50 No Known Allergies; aj1 - Home Meds: 11:50 apixaban Oral 5 mg 2 times per day [Active]; Iron CR Oral daily [Active]; aj1 diphenoxylate-atropine 2.5-0.025 mg/5 mL Oral liqd 3 times per day [Active]; metoprolol tartrate 50 mg oral tab 2 times per day [Active]; loratadine 10 mg oral tab 1 tab once daily [Active]; liothyronine 5 mcg Oral tab 1 tab once daily [Active]; Xifaxan oral 3 times per day [Active]; Anoro Ellipta 62.5-25 mcg/actuation inhalation dsdv 1 puff once daily [Active]; Symbicort 160-4.5 mcg/actuation inhalation HFAA 2 puffs 2 times per day [Active]; Ventolin Rotahaler/Rotacaps Inhl daily [Active]; Centrum Silver oral oral daily [Active]; - PMHx: 11:50 Cancer; Diabetes - NIDDM; Hypertension; aj1 - PSHx: 11:50 Bowel resection; left shoudler surgery; left knee surgery; aj1 - Immunization history:: Flu vaccine is up to date. - Social history:: Smoking status: Patient/guardian denies using tobacco. - Ebola Screening: : Patient denies travel to an Ebola-affected area in the 21 days before illness onset. ROS: 12:18 Constitutional: Negative for fever, chills, and weight loss, Cardiovascular: Negative jm for chest pain, palpitations, and edema. 12:18 Abdomen/GI: Negative for abdominal pain, nausea, vomiting, diarrhea, and constipation. 12:18 MS/Extremity: Negative for injury and deformity, Skin: Negative for injury, rash, and discoloration, Neuro: Negative for headache, weakness, numbness, tingling, and seizure. 12:18 Respiratory: Positive for shortness of breath, Negative for 12:18 All other systems are negative. Exam: 12:18 Head/Face: atraumatic. jmm 12:18 Constitutional: The patient appears alert, awake, uncomfortable. 12:18 Chest/axilla: Inspection: normal. 12:18 Cardiovascular: Rate: normal, Rhythm: regular. 12:18 Respiratory: mild respiratory distress is noted, Respirations: normal, Breath sounds: rhonchi, that are moderate, are scattered. 12:18 Abdomen/GI: Inspection: abdomen appears normal, Bowel sounds: normal, Palpation: abdomen is soft and non-tender, in all quadrants. 12:18 Back: ROM is normal. 12:18 Musculoskeletal/extremity: ROM: intact in all extremities. 12:18 Skin: Appearance: Color: normal in color. 12:18 Neuro: Orientation: is normal, Mentation: is normal, Memory: is normal. 12:18 Psych: Behavior/mood is pleasant, cooperative. Vital Signs: 11:50 BP 157 / 70; Pulse 60; Resp 20; Temp 97.7; Pulse Ox 98% on R/A; Weight 81.65 kg (R); aj1 Height 6 ft. 2 in. (187.96 cm) (R); Pain 0/10; 12:30 BP 169 / 69; Pulse 60; Resp 18; Pulse Ox 99% on 2 lpm NC; hj 13:22 BP 160 / 76; Pulse 62; Resp 18; Pulse Ox 100% on 2 lpm NC; hj 15:15 BP 164 / 80; Pulse 64; Resp 19; Pulse Ox 100% on 2 lpm NC; Pain 0/10; mg2 11:50 Body Mass Index 23.11 (81.65 kg, 187.96 cm) aj1 MDM: 12:18 Patient medically screened. [facility] 13:34 Data reviewed: radiologic studies, plain films. ED course: Patient admitted due to [facility] concerns for CHF along with elevated tropinin. Patient admitted to Dr. Zurita for further evaluation. . 14:12 Data reviewed: vital signs, nurses notes, lab test result(s). Physician consultation: [facility] Alberto Zurita MD. 08/20 11:55 Order name: Basic Metabolic Panel [facility] 08/20 11:55 Order name: CBC with Diff; Complete Time: 13:23 [facility] 08/20 11:55 Order name: Ckmb; Complete Time: 13:23 [facility] 08/20 11:55 Order name: CPK; Complete Time: 13:23 [facility] 08/20 11:55 Order name: LFT's; Complete Time: 13:23 [facility] 08/20 11:55 Order name: Magnesium; Complete Time: 13:23 [facility] 08/20 11:55 Order name: NT PRO-BNP; Complete Time: 13:23 [facility] 08/20 11:55 Order name: PT-INR; Complete Time: 13:23 [facility] 08/20 11:55 Order name: Ptt, Activated; Complete Time: 13:23 [facility] 08/20 11:55 Order name: Troponin (emerg Dept Use Only); Complete Time: 13:23 [facility] 08/20 11:55 Order name: XRAY Chest (1 view); Complete Time: 12:34 [facility] 08/20 11:56 Order name: Basic Metabolic Panel; Complete Time: 13:23 [facility] 08/20 16:05 Order name: Troponin I [facility] 08/20 11:55 Order name: EKG; Complete Time: 11:56 [facility] 08/20 11:55 Order name: Cardiac monitoring; Complete Time: 11:56 [facility] 08/20 11:55 Order name: EKG - Nurse/Tech; Complete Time: 12:27 [facility] 08/20 11:55 Order name: IV Saline Lock; Complete Time: 12:27 [facility] 08/20 11:55 Order name: Labs collected and sent; Complete Time: 12:27 [facility] 08/20 11:55 Order name: O2 Per Protocol; Complete Time: 11:57 [facility] 08/20 11:55 Order name: O2 Sat Monitoring; Complete Time: 11:57 [facility] Administered Medications: 12:25 Drug: Lasix 20 mg Route: IVP; Site: right forearm; hj 13:27 Follow up: Response: No adverse reaction hj 12:25 Drug: DuoNeb (3:1) (2.5 mg - 0.5 mg) 3 ml Route: Nebulizer; hj 13:27 Follow up: Response: No adverse reaction; Wheezing diminished hj 13:24 Drug: Aspirin Chewable Tablet 324 mg Route: PO; hj 13:35 Follow up: Response: No adverse reaction Disposition: 08/21 10:30 Co-signature as Attending Physician, Terry Mckeon MD. Disposition: 08/20/17 14:13 Hospitalization ordered by Alberto Zurita for Inpatient Admission. Preliminary diagnosis is Acute on chronic combined systolic (congestive) and diastolic (congestive) heart failure. - Bed requested for Telemetry/MedSurg (Inpatient). - Status is Inpatient Admission. mg2 - Condition is Stable. - Problem is an acute exacerbation. - Symptoms have improved. UTI on Admission? No Signatures: Dispatcher [employer] EDMS Cindy York RN RN aj1 Yamilex Valencia RN RN Corey Andino PA PA [facility] [place] RN Terry Lakhani MD MD Madi Langston, JIM RN mg2 Corrections: (The following items were deleted from the chart) 08/20 15:19 14:13 Hospitalization Ordered by Alberto Zurita MD for Inpatient Admission. Preliminary diagnosis is Acute on chronic combined systolic (congestive) and diastolic (congestive) heart failure. Bed requested for Telemetry/MedSurg (Inpatient). Status is Inpatient Admission. Condition is Stable. Problem is an acute exacerbation. Symptoms have improved. UTI on Admission? No. [facility] 16:05 15:19 08/20/2017 14:13 Hospitalization Ordered by Alberto Zurita MD for Inpatient mg2 Admission. Preliminary diagnosis is Acute on chronic combined systolic (congestive) and diastolic (congestive) heart failure. Bed requested for Telemetry/MedSurg (Inpatient). Status is Inpatient Admission. Condition is Stable. Problem is an acute exacerbation. Symptoms have improved. UTI on Admission? No. dw
--- NOTE | 2017-08-20 14:14 | ER ---
Nurse's Notes [facility] Name: Sean Pascual Age: 76 yrs Sex: Male : 1940 Arrival Date: 08/20/2017 Time: 11:41 Bed 16 Private MD: Alberto Zurita Diagnosis: Acute on chronic combined systolic (congestive) and diastolic (congestive) heart failure Presentation: 08/20 11:42 Presenting complaint: Patient states: Shortness of breath, diarrhea. Reports that this aj1 is his 4th time to be seen in this emergency room for the same complaint. Denies N/V, fever. Transition of care: patient was not received from another setting of care. Onset of symptoms was December 25, 2016. Risk Assessment: Do you want to hurt yourself or someone else? Patient reports no desire to harm self or others. Initial Sepsis Screen: Does the patient meet any 2 criteria? No. Patient's initial sepsis screen is negative. Does the patient have a suspected source of infection? No. Patient's initial sepsis screen is negative. Care prior to arrival: None. 11:42 Method Of Arrival: Ambulatory [facility] 11:42 Acuity: TIERRA 3 aj1 Triage Assessment: 11:50 General: Appears in no apparent distress. uncomfortable, Behavior is calm, cooperative, aj1 appropriate for age. Pain: Denies pain. Neuro: Level of Consciousness is awake, alert, obeys commands, Speech is normal, Facial symmetry appears normal. Cardiovascular: Denies chest pain, Patient's skin is warm and dry. Respiratory: Reports shortness of breath Airway is patent Respiratory effort is even, unlabored, Respiratory pattern is regular, symmetrical. GI: Abdomen is non-distended, Reports diarrhea. Derm: Skin is pink, warm \T\ dry. normal. Historical: - Allergies: 11:50 No Known Allergies; aj1 - Home Meds: 11:50 apixaban Oral 5 mg 2 times per day [Active]; Iron CR Oral daily [Active]; aj1 diphenoxylate-atropine 2.5-0.025 mg/5 mL Oral liqd 3 times per day [Active]; metoprolol tartrate 50 mg oral tab 2 times per day [Active]; loratadine 10 mg oral tab 1 tab once daily [Active]; liothyronine 5 mcg Oral tab 1 tab once daily [Active]; Xifaxan oral 3 times per day [Active]; Anoro Ellipta 62.5-25 mcg/actuation inhalation dsdv 1 puff once daily [Active]; Symbicort 160-4.5 mcg/actuation inhalation HFAA 2 puffs 2 times per day [Active]; Ventolin Rotahaler/Rotacaps Inhl daily [Active]; Centrum Silver oral oral daily [Active]; - PMHx: 11:50 Cancer; Diabetes - NIDDM; Hypertension; aj1 - PSHx: 11:50 Bowel resection; left shoudler surgery; left knee surgery; aj1 - Immunization history:: Flu vaccine is up to date. - Social history:: Smoking status: Patient/guardian denies using tobacco. - Ebola Screening: : Patient denies travel to an Ebola-affected area in the 21 days before illness onset. Screenin:55 Abuse screen: Denies threats or abuse. Denies injuries from another. Nutritional hj screening: No deficits noted. Tuberculosis screening: No symptoms or risk factors identified. Fall Risk None identified. Assessment: 10:50 Reassessment: see triage for assessment;. hj 12:00 Reassessment: Patient and/or family updated on plan of care and expected duration. Pain hj level reassessed. Patient is alert, oriented x 3, equal unlabored respirations, skin warm/dry/pink. awaiting results and POC;. 13:21 Reassessment: Patient and/or family updated on plan of care and expected duration. Pain hj level reassessed. Patient is alert, oriented x 3, equal unlabored respirations, skin warm/dry/pink. family in room;. 15:27 Reassessment: Patient appears in no apparent distress at this time. Patient and/or mg2 family updated on plan of care and expected duration. Pain level reassessed. Patient is alert, oriented x 3, equal unlabored respirations, skin warm/dry/pink. receiving nurse will call me back for the report. 15:50 Reassessment: 2nd troponin and ecg was done. mg2 Vital Signs: 11:50 BP 157 / 70; Pulse 60; Resp 20; Temp 97.7; Pulse Ox 98% on R/A; Weight 81.65 kg (R); aj1 Height 6 ft. 2 in. (187.96 cm) (R); Pain 0/10; 12:30 BP 169 / 69; Pulse 60; Resp 18; Pulse Ox 99% on 2 lpm NC; hj 13:22 BP 160 / 76; Pulse 62; Resp 18; Pulse Ox 100% on 2 lpm NC; hj 15:15 BP 164 / 80; Pulse 64; Resp 19; Pulse Ox 100% on 2 lpm NC; Pain 0/10; mg2 11:50 Body Mass Index 23.11 (81.65 kg, 187.96 cm) aj1 ED Course: 11:15 Initial lab(s) drawn, by ED staff, sent to lab. Inserted saline lock: 22 gauge in right hj forearm, using aseptic technique. Blood collected. 11:41 Patient arrived in ED. mr 11:42 Ablerto Zurita MD is Private Physician. mr 11:47 Triage completed. aj1 11:50 Arm band placed on Patient placed in an exam room. aj1 11:54 [place] RN is Primary Nurse. hj 11:55 Corey Zimmerman PA is PHCP. jmm 11:55 Terry Mckeon MD is Attending Physician. jmm 11:55 Patient has correct armband on for positive identification. Placed in gown. Bed in low hj position. Call light in reach. Side rails up X 1. Adult w/ patient. 12:24 XRAY Chest (1 view) In Process Unspecified. EDMS 14:12 Alberto Zurita MD is Hospitalizing Provider. jmm 15:30 No provider procedures requiring assistance completed. mg2 15:54 Patient admitted, IV remains in place. mg2 Administered Medications: 12:25 Drug: Lasix 20 mg Route: IVP; Site: right forearm; hj 13:27 Follow up: Response: No adverse reaction hj 12:25 Drug: DuoNeb (3:1) (2.5 mg - 0.5 mg) 3 ml Route: Nebulizer; hj 13:27 Follow up: Response: No adverse reaction; Wheezing diminished hj 13:24 Drug: Aspirin Chewable Tablet 324 mg Route: PO; hj 13:35 Follow up: Response: No adverse reaction hj Outcome: 14:13 Decision to Hospitalize by Provider. jmm 15:52 Admitted to Med/surg mg2 15:52 Admitted to Med/surg accompanied by tech, via wheelchair, room 229, with oxygen, with chart, Report called to Nurse Amisha 15:52 Condition: stable 15:52 Instructed on the need for admit, Demonstrated understanding of instructions. 16:05 Patient left the ED. mg2 Signatures: Dispatcher [employer] EDCindy Weir, RN RN aj1 Corey Zimmerman PA PA jmm Rivera, Maria mr [place] RN RN hj Madi Langston RN RN mg2 Corrections: (The following items were deleted from the chart) 14:10 12:30 BP 169 / 69; Pulse 60bpm; Resp 18bpm; Pulse Ox 99% RA; abby mora
[2017-08-20] MEDS ORDERED: IPRATROPIUM BROM 0.5MG/2.5ML NEB PRN (14:40)
[2017-08-20] MEDS ORDERED: ACETAMINOPHEN 500 MG TAB PO PRN (14:40)
[2017-08-20] MEDS ORDERED: ONDANSETRON 4 MG/2 ML VIAL IV PRN (14:40)
[2017-08-20] MEDS ORDERED: ALBUTEROL 2.5 MG/3 ML NEB SOL NEB PRN (14:40)
[2017-08-20] MEDS ORDERED: HYDRALAZINE HCL 20 MG/ML VIAL IV PRN (20:00)
[2017-08-20] MEDS ORDERED: ENOXAPARIN 40 MG/0.4 ML SQ SCH (21:00)
[2017-08-20] MEDS: PANTOPRAZOLE 40MG TABLET PO SCH (21:13)
[2017-08-20] MEDS: cloNIDine HCl 0.1 MG TAB PO PRN (23:32)
[2017-08-21 04:37] LABS: Absolute Lymphocytes (CBC) 1.6 K/uL (0.7-4.9); Absolute Monocytes 0.5 K/uL (0.1-1.3); Absolute Neutrophil 3.9 K/uL (1.8-8.0); Basophils % 0.7 % (0-1.3); Eosinophils % 5.5 % (0-4.4); Hematocrit 34.3 % (39.6-49.0); Lymphocytes % 24.9 % (15.3-44.8); MCH 29.8 pg (27.0-35.0); MCV 89.2 fL (80-100); MPV 10.2 fL (7.6-11.3); Monocytes % 7.2 % (3.3-12.3); RBC Red Blood Cell Count 3.85 M/uL (4.33-5.43)
[2017-08-21 05:10] LABS: Potassium 3.3 mmol/L (3.5-5.1)
[2017-08-21] MEDS: PANTOPRAZOLE 40MG TABLET PO SCH (05:59)
[2017-08-21] MEDS ORDERED: PANTOPRAZOLE 40MG TABLET PO SCH (06:30)
--- NOTE | 2017-08-21 06:35 | EKG ---
Test Date: 2017-08-20 Test Time: 15:55:06 Supercharger Mechanic: GUEVARA MEASUREMENT RESULTS: Intervals: Rate: 60 [place]: QRSD: 188 QT: 506 QTc: 506 [place]: P: [place]: QRS: -74 T: 108 INTERPRETIVE STATEMENTS: Ventricular-paced rhythm Atrial fibrillation with no AV conduction Abnormal ECG Compared to ECG 07/27/2017 00:49:05 No significant changes Electronically Signed On 08-21-17 06:35:05 CDT by Ajit Neal
[2017-08-21] MEDS: FUROSEMIDE 40 MG/4 ML VIAL IV SCH (08:09)
--- NOTE | 2017-08-21 09:13 | EKG ---
Test Date: 2017-08-20 Test Time: 12:23:57 Heel Curver: GUEVARA MEASUREMENT RESULTS: Intervals: Rate: 61 [place]: QRSD: 188 QT: 502 QTc: 505 [place]: P: [place]: QRS: -71 T: 117 INTERPRETIVE STATEMENTS: Ventricular-paced rhythm Abnormal ECG Compared to ECG 07/27/2017 00:49:05 No significant changes Electronically Signed On 08-21-17 09:12:35 CDT by Ajit Neal
[2017-08-21] MEDS ORDERED: ALBUTEROL SULFATE IH SCH (09:30)
--- NOTE | 2017-08-21 14:22 | P.HP ---
Certification for Inpatient Patient admitted to: Inpatient With expected LOS: >2 Midnights Patient will require the following post-hospital care: None Practitioner: I am a practitioner with admitting privileges, knowledge of patient current condition, hospital course, and medical plan of care. Services: Services provided to patient in accordance with Admission requirements found in Title 42 Section 412.3 of the Code of Federal Regulations Patient History Date of Service: 08/21/17 Primary Care Provider: Parminder Reason for admission: bronchitis History of Present Illness: Patient is here after getting shortness of breath. The patient has been having chronic diarrhea for the past several months. this has been since he had the carcinoid tumor removed. The patient was 220 lbs in Dec when he had the surgery. Has had several visits to the hospital and office for shortness of breath. The patient was recently started on xifaxin without much improvement of his diarrhea. He gas gotten shortness of breath after a diarrhea bout for the last admission. This admission is a similar presentation. Allergies No Known Allergies Allergy (Verified 07/27/17 04:34) Home Medications: Albuterol Sulfate [Ventolin Hfa] 18 gm IH PRN 08/20/17 Apixaban [Eliquis] 5 mg PO BID 08/20/17 Budesonide/Formoterol Fumarate [Symbicort 80-4.5 Mcg Inhaler] 2 puff PO BID 09/30 Diphenoxylate HCl/Atropine [Diphenoxylate-Atrop 2.5-0.025] 1 each PO TID Ferrous Sulfate [Iron] 325 mg PO DAILY 08/20/17 Liothyronine Sodium [Cytomel] 5 mcg PO DAILY 08/20/17 Loratadine [Claritin] 10 mg PO DAILY 08/20/17 Metoprolol Tartrate [Lopressor] 50 mg PO BID 08/20/17 Multivit-Min/FA/Lycopen/Lutein [Centrum Silver Men Tablet] 1 tab PO DAILY Rifaximin [Xifaxan] 550 mg PO TID 08/20/17 Umeclidinium Brm/Vilanterol Tr [Anoro Ellipta 62.5-25 Mcg INH] 1 each IH DAILY 08/20/17 - Past Medical/Surgical History Has patient received pneumonia vaccine in the past: Yes Diabetic: Yes -: HTN -: GERD -: DM -: Irregular Heart Rate -: Depression -: CHF -: Left knee replacement -: Pacemaker -: Left shoulder sx -: Small/Large Bowel resection r/t obstruction -: Cardiac Bypass - Family History Father -: Heart disease Notes: heart attack Mother -: Lung disease Notes: emphysema - Social History Smoking Status: Former smoker Alcohol use: No CD- Drugs: No Caffeine use: Yes Place of Residence: Home Review of Systems 10-point ROS is otherwise unremarkable General: Weakness Respiratory: Shortness of Breath Gastrointestinal: Diarrhea Physical Examination - Vital Signs Temperature: 98 F Blood Pressure: 173/81 Pulse: 84 Respirations: 18 Pulse Ox (%): 99 Assessment and Plan - Problems (Diagnosis) (1) Chronic diarrhea Onset Date: 07/20/17 Current Visit: No Status: Acute Plan: Will consult Dr. Campa. Is this a short bowel syndrome. Or a carcinoid syndrome. Will check stool electrolytes. (2) Bronchitis Current Visit: Yes Status: Acute Plan: Patient is breathing better. Will hold the lasix. Continue PRN breathing treatment (3) Hypothyroidism Current Visit: Yes Status: Acute Plan: Will check a tsh Qualifiers: Hypothyroidism type: unspecified Qualified Code(s): E03.9 - Hypothyroidism , unspecified (4) Atrial fibrillation Current Visit: Yes Status: Acute Plan: on metoprolol and elliquis Qualifiers: Atrial fibrillation type: chronic Qualified Code(s): I48.2 - Chronic atrial fibrillation Discharge Plan: Home Plan to discharge in: 48 Hours - Advance Directives Does patient have a Living Will: Yes Does patient have a Durable POA for Healthcare: Yes - Code Status/Comfort Care Code Status Assessed: Yes Code Status: Full Code Physician Review: Patient Assessed, Agree with Above Assessment and Plan Critical Care: No Time Spent Managing Pts Care (In Minutes): 45
--- NOTE | 2017-08-21 14:25 | CON ---
Date of Consultation: 08/21/2017 A 76-year-old male, 229, Dr. Zurita. Reason For Consultation: Diarrhea and weight loss, possible colon resection. History Of Present Illness: Mr. Pascual is a 76-year-old gentleman, who came with shortness of breath and symptoms consistent with congestive heart failure has been admitted to the hospital. However, w e have been consulted for diarrhea. According to the patient, this is a loose watery diarrhea for mo re than a year ongoing. This started after his abdominal surgery. Abdominal surgery was most likely due to carcinoids, however, he does not remember. There was clear liquid diarrhea, very little form s stool. He has no changes of appetite. He is progressively losing weight and muscle mass. That is 1 of his concern. Denies any hematemesis, melena, or hematochezia. No abdominal pain at this time. Has also urgency. Past Medical History: Hypertension, diabetes, carcinoid syndrome. Past Surgical History: As above. Family History: Denies any gastrointestinal malignancy in the family. Social History: No alcohol, tobacco. Psychiatric History: None. Allergies: REVIEWED IN THE CHART. Medications: Reviewed in the chart. Review of Systems: General: Positive generalized weakness. Positive weight loss, progressive. Appetite is good. GI: As elaborated above. Hepatologic: does not know of any liver condition. Pulmonary: No shortness of breath, cough, or expectoration. Cardiac: No palpitation, heart murmur. No orthopnea or dyspnea. Genitourinary: None. Musculoskeletal: Generalized weakness. Dermatologic: Loss of muscle mass. Neuroendocrine: None. Neuropsychiatric: none. Physical Examination: General: Elderly male, still somewhat short of breath. Hemodynamic and respiratory profile within n ormal range. HEENT: Atraumatic, normocephalic. Positive bitemporal wasting. No pallor, no icterus. Neck: Supple. No lymphadenopathy. Trachea central in position. Chest: Clear to auscultation and percussion. Cardiovascular: Normal S1, S2. No S3, no S4. Abdomen: Soft, nontender, nondistended. Well-healed scar. Bowel sounds are present. No hepatomega ly. No splenomegaly. No succussion splash. No rebound tenderness. Bowel sounds are accentuated. Extremities: Upper and lower extremities are symmetrical, however, reduced muscle mass bilaterally. Dermatologic: Decreased skin turgor. Neurologic: Alert, oriented x3. Intact memory, mentation, and judgment. Can move all parts of extr emities without any other problem. Diagnostic Data: Hemoglobin and hematocrit 12 and 36 respectively. AST is borderline elevated. Alb umin level is normal. Chest x-ray, no finding related to GI. Impression, Plan, And Recommendation: Mr. Pascual is a 76-year-old gentleman, who got admitted with s hortness of breath, and congestive heart failure. However he has chronic diarrhea with weight loss. Given the above condition, probably his diarrhea needs to be investigated. Earlier the patient was told that in a year his diarrhea should resolve after surgery, however, with just simple colon resection surgery people do not losing weight, they may have diarrhea. Therefore, it is not explained. Due to congestive heart failure, at this time, that should be the primary focus of attention. Once h is heart condition is stabilized, we will investigate it with a colonoscopy and probably random biops y to rule out any microscopic colitis or any other condition. I have had a discussion with the patient regarding his questions and concerns and I have answered the m to his satisfaction. For the time being, rest of the medical management and his diet should be low residue lactose free. MADDIE/BRENNA Voice ID: [id number] Report ID: [id number]
[2017-08-21] MEDS: cloNIDine HCl 0.1 MG TAB PO PRN (15:51)
[2017-08-21] MEDS ORDERED: IPRATROPIUM BROM 0.5MG/2.5ML NEB PRN (16:00)
[2017-08-21] MEDS ORDERED: ENOXAPARIN 40 MG/0.4 ML SQ SCH (17:00)
[2017-08-21] MEDS ORDERED: ZOLPIDEM TARTRATE 5 MG TABLET PO ONE (20:25)
[2017-08-21] MEDS: ALBUTEROL 2.5 MG/3 ML NEB SOL NEB PRN (20:39)
[2017-08-21] MEDS: APIXABAN 5 MG TABLET PO SCH (21:37)
[2017-08-21] MEDS: METOPROLOL TAR 50 MG TAB PO SCH (21:37)
[2017-08-21] MEDS: HOME MED 1 EA UNK (Budesonide/Formoterol Fumarate [Symbicort 80-4.5 Mcg Inhaler] 2 PUFF) PO SCH (21:38)
[2017-08-21 22:25] LABS: Urine Appearance CLEAR; Urine Bilirubin NEGATIVE (NEG); Urine Blood NEGATIVE (NEG); Urine Color YELLOW; Urine Glucose NEGATIVE (NEG); Urine Protein TRACE (NEG); Urine Specific Gravity 1.015 (1.005-1.030); Urine Urobilinogen 0.2 mg/dL (0.2-1.0)
[2017-08-21 22:31] LABS: Urine Microscopic Reflex ORDER UMIC
[2017-08-21 23:57] LABS: Calcium Oxalate Crystals- Ur MANY (NONE SEEN); Urine Bacteria <20 /HPF (NONE SEEN); Urine Culture Reflex Order REFLEXED; Urine RBC NONE SEEN /HPF (NONE SEEN)
[2017-08-22] MEDS: PANTOPRAZOLE 40MG TABLET PO SCH (06:01)
[2017-08-22] MEDS: LIOTHYRONINE SOD 5 MCG TAB PO SCH (06:01)
[2017-08-22] MEDS: HOME MED 1 EA UNK (Budesonide/Formoterol Fumarate [Symbicort 80-4.5 Mcg Inhaler] 2 PUFF) PO SCH ×2 (08:29→21:23)
[2017-08-22] MEDS: LORATADINE 10 MG TAB PO SCH (08:31)
[2017-08-22] MEDS: APIXABAN 5 MG TABLET PO SCH ×2 (08:31→21:20)
[2017-08-22] MEDS: METOPROLOL TAR 50 MG TAB PO SCH ×2 (08:31→21:20)
[2017-08-22] MEDS: FERROUS SULFATE 325 MG TAB PO SCH (08:31)
[2017-08-22] MEDS: FUROSEMIDE 40 MG/4 ML VIAL IV SCH (08:34)
--- NOTE | 2017-08-22 12:58 | P.PN ---
Subjective Date of Service: 08/22/17 Primary Care Provider: Parminder Chief Complaint: bronchitis Subjective: No new changes Review of Systems 10-point ROS is otherwise unremarkable Gastrointestinal: Diarrhea Physical Examination - Vital Signs Temperature: 97.6 F Blood Pressure: 178/77 Pulse: 61 Respirations: 16 Pulse Ox (%): 100 - Physical Exam General: Alert, In no apparent distress HEENT: Atraumatic, PERRLA, EOMI Neck: Supple, JVD not distended Respiratory: Clear to auscultation bilaterally, Normal air movement Cardiovascular: Regular rate/rhythm, Normal S1 S2 Gastrointestinal: Normal bowel sounds, No tenderness Musculoskeletal: No tenderness Integumentary: No rashes Neurological: Normal speech, Normal tone, Normal affect Lymphatics: No axilla or inguinal lymphadenopathy Assessment & Plan - Problems (Diagnosis) (1) Chronic diarrhea Onset Date: 07/20/17 Current Visit: No Status: Acute Plan: Possible colonoscopy tomorrow. Will order some blood work which I have discussed with Dr. Pretty. (2) Bronchitis Current Visit: Yes Status: Acute Plan: Patient is breathing better. Will hold the lasix. Continue PRN breathing treatment (3) Hypothyroidism Current Visit: Yes Status: Acute Plan: Will check a tsh Qualifiers: Hypothyroidism type: unspecified Qualified Code(s): E03.9 - Hypothyroidism , unspecified (4) Atrial fibrillation Current Visit: Yes Status: Acute Plan: on metoprolol and elliquis Qualifiers: Atrial fibrillation type: chronic Qualified Code(s): I48.2 - Chronic atrial fibrillation Discharge Plan: Home Plan to discharge in: 24 Hours - Code Status/Comfort Care Code Status Assessed: No Code Status: Full Code Physician Review: Patient Assessed, Agree with Above Assessment and Plan Critical Care: No Time Spent Managing Pts Care (In Minutes): 30
[2017-08-22] MEDS ORDERED: BISACODYL E.C. 5 MG TAB PO ONE (16:00)
[2017-08-22] MEDS: ALBUTEROL 2.5 MG/3 ML NEB SOL NEB PRN (16:25)
[2017-08-22] MEDS ORDERED: GOLYTELY 4000 ML PO SCH (19:00)
[2017-08-23] MEDS: LIOTHYRONINE SOD 5 MCG TAB PO SCH (05:51)
[2017-08-23] MEDS: PANTOPRAZOLE 40MG TABLET PO SCH (05:51)
[2017-08-23 06:46] VITALS: BMI 21.4
[2017-08-23] MEDS: FUROSEMIDE 40 MG/4 ML VIAL IV SCH (08:55)
[2017-08-23] MEDS: METOPROLOL TAR 50 MG TAB PO SCH ×2 (08:56→21:37)
[2017-08-23] MEDS: LORATADINE 10 MG TAB PO SCH (08:56)
[2017-08-23] MEDS: HOME MED 1 EA UNK (Budesonide/Formoterol Fumarate [Symbicort 80-4.5 Mcg Inhaler] 2 PUFF) PO SCH ×2 (08:56→21:37)
[2017-08-23] MEDS: APIXABAN 5 MG TABLET PO SCH ×2 (08:56→21:36)
[2017-08-23] MEDS: FERROUS SULFATE 325 MG TAB PO SCH (08:56)
--- NOTE | 2017-08-23 09:26 | P.PN ---
Subjective Date of Service: 08/23/17 Primary Care Provider: Parminder Chief Complaint: bronchitis Subjective: No new changes Review of Systems 10-point ROS is otherwise unremarkable Physical Examination - Vital Signs Temperature: 97.9 F Blood Pressure: 154/71 Pulse: 64 Respirations: 20 Pulse Ox (%): 99 - Physical Exam General: Alert, In no apparent distress HEENT: Atraumatic, PERRLA, EOMI Neck: Supple, JVD not distended Respiratory: Clear to auscultation bilaterally, Normal air movement Cardiovascular: Regular rate/rhythm, Normal S1 S2 Gastrointestinal: Normal bowel sounds, No tenderness Musculoskeletal: No tenderness Integumentary: No rashes Neurological: Normal speech, Normal tone, Normal affect Lymphatics: No axilla or inguinal lymphadenopathy Assessment & Plan - Problems (Diagnosis) (1) Chronic diarrhea Onset Date: 07/20/17 Current Visit: No Status: Acute Plan: Possible colonoscopy tomorrow. Will order some blood work which I have discussed with Dr. Pretty. Have order a urine HIAA, chromograffin A and a ct of the chest. Will await these tests before discharge. Has an appoinment next Tues with Dr. Alvarado (2) Bronchitis Current Visit: Yes Status: Acute Plan: Patient is breathing better. Will hold the lasix. Continue PRN breathing treatment (3) Hypothyroidism Current Visit: Yes Status: Acute Plan: Will check a tsh Qualifiers: Hypothyroidism type: unspecified Qualified Code(s): E03.9 - Hypothyroidism , unspecified (4) Atrial fibrillation Current Visit: Yes Status: Acute Plan: on metoprolol and elliquis Qualifiers: Atrial fibrillation type: chronic Qualified Code(s): I48.2 - Chronic atrial fibrillation Discharge Plan: Home Plan to discharge in: 24 Hours - Code Status/Comfort Care Code Status Assessed: No Code Status: Full Code Physician Review: Patient Assessed, Agree with Above Assessment and Plan Critical Care: No Time Spent Managing Pts Care (In Minutes): 25
[2017-08-23] MEDS ORDERED: NA CHLORIDE 0.9% 1,000 ML ONE (12:13)
[2017-08-23] MEDS ORDERED: LIDOCAINE 1% MPF 5 ML VIAL ONE (12:32)
[2017-08-23] MEDS ORDERED: PROPOFOL 200 MG/20 ML VIAL IV ONE (12:32)
--- NOTE | 2017-08-23 13:18 | OP ---
Date of Procedure: 08/23/2017 Surgeon: Cj Aj MD Procedure: 1.Colonoscopy to likely hepatic flexure. 2.Multiple random biopsies to rule out microscopic colitis. A 76-year-old male, Dr. Zurita, 229. Indication: Chronic diarrhea, unrelenting. Premedication: Per anesthesia. Complexity: Complex procedure. Tolerance Of Sedation: Excellent. Lillie Preparation Scale: Left 1/3, mid 1/3, right 1/3. Total 3/10. Very poor prep, as a result ot her lesions and mucosal details could not be described. Procedure In Detail: The procedure, possible complications, alternatives including, but not limited to the possibility of bleeding, perforation, tear, infection, sepsis, need for surgery, need for bloo d transfusion, anesthesia related problem explained to the patient. Informed consent was obtained. The patient was placed in left lateral position. Digital and rectal examination were normal. Forwar d view retroflexion in this area other than poor prep did not reveal anything else. Severe diverticu losis noted throughout the left colon, however, mucosal details are obscured due to poor preparation. No gross lesion was noted. No active passive bleeding was noted. 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 As a result, procedure had to be s topped at hepatic flexure area due to need for excessive pressure, which will again increase the risk of complication. Multiple random biopsies done. Having done the above procedure up to this level in safe, diligent, and satisfactory manner, endoscop e and rest of the endoscopic accessories were removed. The patient's oropharyngeal area cleaned out in a respectful manner. The patient has been sent in excellent condition to postop recovery, from ere to the floor. Impression: Diverticulosis coli, poor prep, random biopsies done. Plan: Fiber restricted diet, octreotide 50 mcg subcu daily. Complications: None. The patient tolerated the procedure well. Disposition: To the floor. MADDIE/BRENNA Voice ID: [id number] Report ID: [id number]
[2017-08-23] MEDS ORDERED: OCTREOTIDE ACETATE 100 MCG/ML SQ SCH (14:00)
--- NOTE | 2017-08-23 15:47 | RAD REPORT ---
EXAM DESCRIPTION: CT - Thorax Wo Con - 08/23/2017 1:30 pm CLINICAL HISTORY: sob COMPARISON: August 2017 chest x-ray TECHNIQUE: Computed axial tomography of the chest was obtained. Contrast was not requested. All CT scans are performed using dose optimization technique as appropriate and may include automated exposure control or mA/KV adjustment according to patient size. FINDINGS: The evaluation of mediastinum, [place] and vessels is limited secondary to lack of IV contras t administration. Small to moderate right and small left pleural effusions are present. No mediastinal or hilar lymphadenopathy is seen. A calcified granuloma is present within the left lung. The right lung is clear Small amount of ascites is present IMPRESSION: Small to moderate right and small left pleural effusions
[2017-08-23] MEDS: cloNIDine HCl 0.1 MG TAB PO PRN (16:53)
[2017-08-24] MEDS: LIOTHYRONINE SOD 5 MCG TAB PO SCH (05:30)
[2017-08-24] MEDS: PANTOPRAZOLE 40MG TABLET PO SCH (05:30)
[2017-08-24] MEDS: HOME MED 1 EA UNK (Budesonide/Formoterol Fumarate [Symbicort 80-4.5 Mcg Inhaler] 2 PUFF) PO SCH (08:52)
[2017-08-24] MEDS: FUROSEMIDE 40 MG/4 ML VIAL IV SCH (08:53)
[2017-08-24] MEDS: FERROUS SULFATE 325 MG TAB PO SCH (08:53)
[2017-08-24] MEDS: METOPROLOL TAR 50 MG TAB PO SCH (08:53)
[2017-08-24] MEDS: LORATADINE 10 MG TAB PO SCH (08:54)
[2017-08-24] MEDS: APIXABAN 5 MG TABLET PO SCH (08:56)
[2017-08-24 09:11] VITALS: O2SAT 95
--- NOTE | 2017-08-24 13:15 | P.DS ---
Admission Date: 08/20/17 Discharge Date: 08/24/17 Primary Care Provider: Parminder Disposition: ROUTINE DISCHARGE Discharge Condition: FAIR Reason for Admission: bronchitis - Problems (1) Chronic diarrhea Onset Date: 07/20/17 Current Visit: No Status: Acute (2) Bronchitis Current Visit: Yes Status: Acute (3) Hypothyroidism Current Visit: Yes Status: Acute Qualifiers: Hypothyroidism type: unspecified Qualified Code(s): E03.9 - Hypothyroidism , unspecified (4) Atrial fibrillation Current Visit: Yes Status: Acute Qualifiers: Atrial fibrillation type: chronic Qualified Code(s): I48.2 - Chronic atrial fibrillation Brief History of Present Illness: Patient is here after getting shortness of breath. The patient has been having chronic diarrhea for the past several months. this has been since he had the carcinoid tumor removed. The patient was 220 lbs in Dec when he had the surgery. Has had several visits to the hospital and office for shortness of breath. The patient was recently started on xifaxin without much improvement of his diarrhea. He gas gotten shortness of breath after a diarrhea bout for the last admission. This admission is a similar presentation. Hospital Course: Patient admitted to the hospital for the chronic diarrhea and was worked up. He has lost approx 60lbs. Negative CT scan of the chest. Labs for recurrence of the Carcinoid syndrome were drawn. The patient was scopped by Dr. Aj. Will also check a stool elastase for pancreatic insufficency. Will have him come to the office for samples of creon. Will start him on this after discharge. Vital Signs/Physical Exam: Temp Pulse Resp BP Pulse Ox 97.6 F 104 H 18 116/57 L 97 08/24/17 08:00 08/24/17 08:53 08/24/17 08:00 08/24/17 08:53 08/24/17 08:00 General: Alert, In no apparent distress HEENT: Atraumatic, PERRLA, EOMI Neck: Supple, JVD not distended Respiratory: Clear to auscultation bilaterally, Normal air movement Cardiovascular: Regular rate/rhythm, Normal S1 S2 Gastrointestinal: Normal bowel sounds, No tenderness Musculoskeletal: No tenderness Integumentary: No rashes Neurological: Normal speech, Normal tone, Normal affect Lymphatics: No axilla or inguinal lymphadenopathy Laboratory Data at Discharge: WBC 6.4 K/uL (4.3-10.9) 08/21/17 04:23 Hgb 11.5 g/dL (13.6-17.9) L 08/21/17 04:23 Hct 34.3 % (39.6-49.0) L 08/21/17 04:23 Plt Count 179 K/uL (152-406) 08/21/17 04:23 PT 17.7 SECONDS (9.5-12.5) H 08/20/17 12:30 INR 1.49 08/20/17 12:30 APTT 31.1 SECONDS (24.3-36.9) 08/20/17 12:30 Sodium 146 mmol/L (136-145) H 08/21/17 04:19 Potassium 3.3 mmol/L (3.5-5.1) L 08/21/17 04:19 BUN 13 mg/dL (7-18) 08/21/17 04:19 Creatinine 1.00 mg/dL (0.55-1.3) 08/21/17 04:19 Glucose 94 mg/dL (74-106) 08/21/17 04:19 Magnesium 1.7 mg/dL (1.8-2.4) L 08/20/17 12:30 Total Bilirubin 1.0 mg/dL (0.2-1.0) 08/20/17 12:30 AST 52 U/L (15-37) H 08/20/17 12:30 ALT 61 U/L (12-78) 08/20/17 12:30 Alkaline Phosphatase 102 U/L (45-117) 08/20/17 12:30 Troponin I 0.15 ng/mL (0.0-0.045) H 08/20/17 22:00 Home Medications: Albuterol Sulfate [Ventolin Hfa] 18 gm IH PRN 08/20/17 Apixaban [Eliquis] 5 mg PO BID 08/20/17 Budesonide/Formoterol Fumarate [Symbicort 80-4.5 Mcg Inhaler] 2 puff PO BID 09/30 Diphenoxylate HCl/Atropine [Diphenoxylate-Atrop 2.5-0.025] 1 each PO TID Ferrous Sulfate [Iron] 325 mg PO DAILY 08/20/17 Liothyronine Sodium [Cytomel] 5 mcg PO DAILY 08/20/17 Loratadine [Claritin] 10 mg PO DAILY 08/20/17 Metoprolol Tartrate [Lopressor] 50 mg PO BID 08/20/17 Multivit-Min/FA/Lycopen/Lutein [Centrum Silver Men Tablet] 1 tab PO DAILY Rifaximin [Xifaxan] 550 mg PO TID 08/20/17 Umeclidinium Brm/Vilanterol Tr [Anoro Ellipta 62.5-25 Mcg INH] 1 each IH DAILY 08/20/17 Lipase/Protease/Amylase [Creon Dr 12,000 Units Capsule] 2 cap PO AC 30 Days # 240 cap 08/24/17 New Medications: Lipase/Protease/Amylase [Creon Dr 12,000 Units Capsule] 2 cap PO AC 30 Days # 240 cap Diet: Regular Activity: Ad eliot Followup: Love Keyes MD [ACTIVE - CAN ADMIT] - 08/29/17 jC Aj MD [ACTIVE - CAN ADMIT] - 1-2 Weeks Alberto Zurita MD [Primary Care Provider] - (1 month) Time spent managing pt's care (in minutes): 50
[2017-08-24 14:53] VITALS: BP 138/67; TEMP 98
[2017-08-24] MEDS ORDERED: LIPASE/PROTEASE/AMYLASE CAP PO SCH ×2 (16:30→20:00)
== END 2017-08-24 14:41 | disposition home health service (06) | DRG 391 ==
LOC: ER 11:35 → ERHOLD 14:13 → 2ND 15:52
PROVIDERS: ADMIT Internal Medicine; ATTEND Internal Medicine
PROC: 0DBE8ZX Excision of Large Intestine, Via Natural or Artificial Opening Endoscopic, Diagnostic (ICD-10-PCS; principal; 2017-08-23 12:30)
DX: K52.9 Noninfective gastroenteritis and colitis, unspecified (principal); I50.43 Acute on chronic combined systolic (congestive) and diastolic (congestive) heart failure; E34.0 Carcinoid syndrome; J20.9 Acute bronchitis, unspecified; E03.9 Hypothyroidism, unspecified; I48.2 Chronic atrial fibrillation; Z79.01 Long term (current) use of anticoagulants; K57.30 Diverticulosis of large intestine without perforation or abscess without bleeding; E11.9 Type 2 diabetes mellitus without complications; K21.9 Gastro-esophageal reflux disease without esophagitis; F32.9 Major depressive disorder, single episode, unspecified; Z95.810 Presence of automatic (implantable) cardiac defibrillator; Z87.891 Personal history of nicotine dependence; I11.0 Hypertensive heart disease with heart failure; Z90.49 Acquired absence of other specified parts of digestive tract
CPT/HCPCS: 36415; 71045; 71250; 80048; 80076; 81003; 81015; 81050; 82550; 82553; 83497; 83735; 83880; 84484; 85025; 85610; 85730; 87077; 87086; 87088; 87186; 87493; 88305; 93005; 94640; 96374; 99285; J1650; J1940; J2354; J7030

== ENCOUNTER 2017-09-02 09:59 | Observation (INO) | payer OTHER ==
[2017-09-02] MEDS ORDERED: LEVALBUTEROL 1.25 MG/3 ML NEB ONE (10:26)
[2017-09-02] MEDS ORDERED: METHYLPREDNISOLONE 125 MG INJ ONE (10:26)
[2017-09-02 10:36] LABS: Blood Gas Oxyhemoglobin 95.6 % (94-97); Blood O2 Saturation 97.5 % (92-98.5)
[2017-09-02 10:40] LABS: Absolute Monocytes 0.5 K/uL (0.1-1.3); Absolute Neutrophil 6.8 K/uL (1.8-8.0); Basophils % 0.6 % (0-1.3); Eosinophils % 0.4 % (0-4.4); Hematocrit 35.7 % (39.6-49.0); Lymphocytes % 12.1 % (15.3-44.8); MCH 29.9 pg (27.0-35.0); MCV 89.7 fL (80-100); MPV 10.3 fL (7.6-11.3); Monocytes % 5.8 % (3.3-12.3); RBC Red Blood Cell Count 3.98 M/uL (4.33-5.43)
[2017-09-02 10:48] LABS: Protime INR 1.88
[2017-09-02 10:59] LABS: Albumin 3.5 g/dL (3.4-5.0); Bilirubin Direct 0.5 mg/dL (0-0.2); Bilirubin Total 1.3 mg/dL (0.2-1.0); Magnesium 1.8 mg/dL (1.8-2.4); Potassium 3.5 mmol/L (3.5-5.1); Protein, Total 7.4 g/dL (6.4-8.2)
[2017-09-02] MEDS ORDERED: FUROSEMIDE 40 MG/4 ML VIAL ONE (11:17)
--- NOTE | 2017-09-02 12:39 | RAD REPORT ---
EXAM DESCRIPTION: Darby Single View09/02/2017 10:37 am CLINICAL HISTORY: sob COMPARISON: August 23, 2017 FINDINGS: Small to moderate bilateral pleural effusions are without significant change. Mild bibasil ar lung atelectasis is suspected. The remainder of the lungs appear clear of acute infiltrate. The heart is mildly enlarged. Pacemaker leads are in place. IMPRESSION: No change in small to moderate bilateral pleural effusions
[2017-09-02 13:12] LABS: Urine Blood NEGATIVE (NEG); Urine Glucose NEGATIVE (NEG); Urine Protein NEGATIVE (NEG); Urine pH 5.5 (5.0-7.0)
--- NOTE | 2017-09-02 13:42 | ER ---
Nurse's Notes [facility] Name: Sean Pascual Age: 76 yrs Sex: Male : 1940 Arrival Date: 09/02/2017 Time: 10:02 Bed 7 Private MD: Diagnosis: Dyspnea;Chronic respiratory failure with hypoxia;Carcinoid syndrome Presentation: 09/02 10:02 Presenting complaint: EMS states: pt c/o SOB and difficulty breathing and shortness of tw2 breath that started yesterday evening and hasnt been able to sleep d/t sob, 87% RA, no o2 at home, he just got out of the hospital last week for the same thing, hx: chf, pacemaker, bowel CA. Transition of care: patient was not received from another setting of care. Onset of symptoms was September 02, 2017. Risk Assessment: Do you want to hurt yourself or someone else? Patient reports no desire to harm self or others. Initial Sepsis Screen: Does the patient meet any 2 criteria? RR > 20 per min. No. Patient's initial sepsis screen is negative. Does the patient have a suspected source of infection? No. Patient's initial sepsis screen is negative. Care prior to arrival: Oxygen administered. via a non-rebreather mask. 10:02 Method Of Arrival: EMS: [facility] tw2 10:02 Acuity: TIERRA 3 tw2 Triage Assessment: 10:17 General: Appears in no apparent distress. Respiratory: Onset: The symptoms/episode tw2 began/occurred yesterday, the patient has mild shortness of breath. Historical: - Allergies: 10:10 No Known Allergies; tw2 - Home Meds: 10:10 metoprolol tartrate 100 mg oral tab [Active]; apixaban Oral 5 mg 2 times per day tw2 [Active]; loratadine 10 mg Oral tab 1 tab once daily [Active]; liothyronine 5 mcg Oral tab 1 tab once daily [Active]; Ventolin Rotahaler/Rotacaps Inhl as needed [Active]; Centrum Silver Oral daily [Active]; Anoro Ellipta 62.5-25 mcg/actuation inhalation dsdv 1 puff once daily [Active]; Symbicort 160-4.5 mcg/actuation inhalation HFAA 2 puffs 2 times per day [Active]; Iron CR Oral daily [Active]; WelChol 3.75 gram oral pwpk 1 packet once daily [Active]; Creon 6,000-19,000 -30,000 unit oral cpDR 4 caps 3 times per day [Active]; - PMHx: 10:10 Cancer; Diabetes - NIDDM; Hypertension; tw2 - PSHx: 10:10 Bowel resection; left shoudler surgery; left knee surgery; tw2 - Immunization history:: Adult Immunizations. - Social history:: Smoking status: Patient/guardian denies using tobacco, the patient reports quitting approximately 40 years ago. - Ebola Screening: : Patient denies travel to an Ebola-affected area in the 21 days before illness onset. Screenin:16 Abuse screen: Denies threats or abuse. Nutritional screening: No deficits noted. tw2 Tuberculosis screening: No symptoms or risk factors identified. Fall Risk None identified. Assessment: 10:15 General: Appears in no apparent distress. well groomed, Behavior is calm, cooperative, tw2 appropriate for age. Pain: Denies pain. Neuro: Level of Consciousness is awake, alert, obeys commands, Oriented to person, place, situation. Cardiovascular: Denies chest pain, Heart tones S1 S2. Respiratory: Reports shortness of breath at rest since yesterday evening, cannot lay flat Airway is patent Respiratory effort is even, unlabored, Respiratory pattern is tachypnea. GI: No signs and/or symptoms were reported involving the gastrointestinal system. Abdomen is flat, Bowel sounds present X 4 quads. : No signs and/or symptoms were reported regarding the genitourinary system. EENT: No signs and/or symptoms were reported regarding the EENT system. Derm: No signs and/or symptoms reported regarding the dermatologic system. Musculoskeletal: Range of motion: intact in all extremities. 10:17 Respiratory: Breath sounds are clear Breath sounds are diminished bilaterally. tw2 10:25 Cardiovascular: Rhythm is atrial pacer. tw2 11:21 Reassessment: Patient appears in no apparent distress at this time. Patient and/or tw2 family updated on plan of care and expected duration. Pain level reassessed. Patient is alert, oriented x 3, equal unlabored respirations, skin warm/dry/pink. 12:17 Reassessment: Patient appears in no apparent distress at this time. Patient and/or tw2 family updated on plan of care and expected duration. Pain level reassessed. Patient is alert, oriented x 3, equal unlabored respirations, skin warm/dry/pink. 13:02 Reassessment: pt taken via w/c to bathroom, pt ambulated 10 feet and states "this aint tw2 gonna work, i cant breathe", provider notified. 88%RA, pt returned to w/c and into room, placed on o2 at 2L, notified provider Juan Pablo Rushing 14:00 Reassessment: Patient appears in no apparent distress at this time. Patient and/or tw2 family updated on plan of care and expected duration. Pain level reassessed. Patient is alert, oriented x 3, equal unlabored respirations, skin warm/dry/pink. 14:45 Reassessment: Patient appears in no apparent distress at this time. Patient and/or tw2 family updated on plan of care and expected duration. Pain level reassessed. Patient is alert, oriented x 3, equal unlabored respirations, skin warm/dry/pink. 16:20 Reassessment: Patient appears in no apparent distress at this time. Patient and/or tw2 family updated on plan of care and expected duration. Pain level reassessed. Patient is alert, oriented x 3, equal unlabored respirations, skin warm/dry/pink. Vital Signs: 10:05 BP 161 / 73; Pulse 63; Resp 24; Temp 98.4(O); Pulse Ox 91% on R/A; tw2 11:20 BP 163 / 66; Pulse 61; Resp 22; Pulse Ox 99% on 3 lpm NC; tw2 12:16 BP 161 / 75; Pulse 60; Resp 22; Pulse Ox 99% on 2 lpm NC; tw2 13:06 BP 161 / 66; Pulse 60; Resp 26; Pulse Ox 88% on R/A; tw2 13:06 Pulse Ox 99% on 2 lpm NC; tw2 14:00 BP 160 / 67; Pulse 61; Resp 17; Pulse Ox 100% on 2 lpm NC; tw2 14:44 BP 160 / 69; Pulse 84; Resp 20; Pulse Ox 96% on 2 lpm NC; tw2 16:19 BP 164 / 83; Pulse 60; Resp 25; Pulse Ox 100% on 2 lpm NC; tw2 10:05 but pt working hard to breath and talking after breaths, provider Juan Pablo Zelaya at bedside tw2 ED Course: 10:02 Patient arrived in ED. tw2 10:05 Triage completed. tw2 10:05 Placed in gown. Bed in low position. Call light in reach. ekg monitor tech on. Pulse ox tw2 on. NIBP on. 10:06 Arm band placed on. tw2 10:09 Juan Pablo Guy PA is PHCP. jr8 10:09 Donis Mcconnell MD is Attending Physician. jr8 10:15 Marie Isabel RN is Primary Nurse. tw2 10:32 Initial lab(s) drawn, by de, sent to lab. EKG done, by ED staff, reviewed by Juan Pablo AKHTAR. Inserted saline lock: 20 gauge in right antecubital area, using aseptic technique. Blood collected. 10:37 XRAY Chest (1 view) In Process Unspecified. EDMS 13:40 Giovanny García MD is Hospitalizing Provider. jr8 14:15 Bekah Casper MD is Hospitalizing Provider. jr8 15:54 Hospitalizing Provider role handed off by Bekah Casper MD jr8 15:54 Alberto Zurita MD is Hospitalizing Provider. jr8 16:20 No provider procedures requiring assistance completed. Patient admitted, IV remains in tw2 place. Administered Medications: 10:35 Drug: SOLU-Medrol 125 mg Route: IVP; Site: right antecubital; tw2 11:13 Follow up: Response: No adverse reaction tw2 10:37 Drug: Xopenex 1.25 mg Route: Inhalation; tw2 11:15 Drug: Lasix 40 mg Route: IVP; Site: right antecubital; tw2 12:15 Follow up: Response: No adverse reaction tw2 Point of Care Testing: Blood Glucose: 16:32 Blood Glucose: 177 mg/dL; tw2 Ranges: Outcome: 13:41 Decision to Hospitalize by Provider. jr8 16:20 Admitted to Med/surg accompanied by tech, via wheelchair, room 204. tw2 16:20 Admitted to Med/surg Report called to JIM Burrell 16:20 Condition: stable 16:20 Instructed on follow up and referral plans. 16:43 Patient left the ED. tw2 Signatures: Dispatcher [employer] EDMS Leon Alfred Josh, PA PA jr8 Marie Isabel, RN RN tw2 Corrections: (The following items were deleted from the chart) 10:15 10:05 BP 161 / 73; Pulse 63bpm; Resp 22bpm; Pulse Ox 91% RA; Temp 98.4F Oral; but pt tw2 working hard to breath and talking after breaths, provider Juan Pablo Zelaya at bedside; tw2
--- NOTE | 2017-09-02 13:42 | EDPHYS ---
Physician Documentation [facility] Name: Sean Pascual Age: 76 yrs Sex: Male : 1940 Arrival Date: 09/02/2017 Time: 10:02 Bed 7 Private MD: ED Physician Donis Mcconenll HPI: 09/02 12:00 This 76 yrs old Male presents to ER via EMS with complaints of Shortness Of jr8 Breath. 12:00 The patient has shortness of breath at rest, with light activity. Onset: The jr8 symptoms/episode began/occurred acutely, today. Duration: The symptoms are continuous. The patient's shortness of breath is aggravated by walking. Associated signs and symptoms: The patient has no apparent associated signs or symptoms. Severity of symptoms: At their worst the symptoms were moderate in the emergency department the symptoms are unchanged. The patient has experienced similar episodes in the past, a few times. The patient has been recently seen by a physician:. Admitted a couple of weeks ago for shortness of breath. History of CHF/COPD. Stated that he started having breathing problems again . Historical: - Allergies: 10:10 No Known Allergies; tw2 - Home Meds: 10:10 metoprolol tartrate 100 mg oral tab [Active]; apixaban Oral 5 mg 2 times per day tw2 [Active]; loratadine 10 mg Oral tab 1 tab once daily [Active]; liothyronine 5 mcg Oral tab 1 tab once daily [Active]; Ventolin Rotahaler/Rotacaps Inhl as needed [Active]; Centrum Silver Oral daily [Active]; Anoro Ellipta 62.5-25 mcg/actuation inhalation dsdv 1 puff once daily [Active]; Symbicort 160-4.5 mcg/actuation inhalation HFAA 2 puffs 2 times per day [Active]; Iron CR Oral daily [Active]; WelChol 3.75 gram oral pwpk 1 packet once daily [Active]; Creon 6,000-19,000 -30,000 unit oral cpDR 4 caps 3 times per day [Active]; - PMHx: 10:10 Cancer; Diabetes - NIDDM; Hypertension; tw2 - PSHx: 10:10 Bowel resection; left shoudler surgery; left knee surgery; tw2 - Immunization history:: Adult Immunizations. - Social history:: Smoking status: Patient/guardian denies using tobacco, the patient reports quitting approximately 40 years ago. - Ebola Screening: : Patient denies travel to an Ebola-affected area in the 21 days before illness onset. ROS: 12:00 Eyes: Negative for injury, pain, redness, and discharge, ENT: Negative for injury, jr8 pain, and discharge, Neck: Negative for injury, pain, and swelling, Cardiovascular: Negative for chest pain, palpitations, and edema, Abdomen/GI: Negative for abdominal pain, nausea, vomiting, diarrhea, and constipation, Back: Negative for injury and pain, MS/Extremity: Negative for injury and deformity, Skin: Negative for injury, rash, and discoloration, Neuro: Negative for headache, weakness, numbness, tingling, and seizure. 12:00 Respiratory: Positive for dyspnea on exertion, shortness of breath. Exam: 12:00 Eyes: Pupils equal round and reactive to light, extra-ocular motions intact. Lids and jr8 lashes normal. Conjunctiva and sclera are non-icteric and not injected. Cornea within normal limits. Periorbital areas with no swelling, redness, or edema. ENT: Nares patent. No nasal discharge, no septal abnormalities noted. Tympanic membranes are normal and external auditory canals are clear. Oropharynx with no redness, swelling, or masses, exudates, or evidence of obstruction, uvula midline. Mucous membranes moist. Neck: Trachea midline, no thyromegaly or masses palpated, and no cervical lymphadenopathy. Supple, full range of motion without nuchal rigidity, or vertebral point tenderness. No Meningismus. Cardiovascular: Regular rate and rhythm with a normal S1 and S2. No gallops, murmurs, or rubs. Normal PMI, no JVD. No pulse deficits. Abdomen/GI: Soft, non-tender, with normal bowel sounds. No distension or tympany. No guarding or rebound. No evidence of tenderness throughout. Back: No spinal tenderness. No costovertebral tenderness. Full range of motion. Skin: Warm, dry with normal turgor. Normal color with no rashes, no lesions, and no evidence of cellulitis. MS/ Extremity: Pulses equal, no cyanosis. Neurovascular intact. Full, normal range of motion. Neuro: Awake and alert, GCS 15, oriented to person, place, time, and situation. Cranial nerves II-XII grossly intact. Motor strength 5/5 in all extremities. Sensory grossly intact. Cerebellar exam normal. Normal gait. 12:00 Respiratory: mild respiratory distress is noted, Respirations: tachypnea, Breath sounds: decreased breath sounds, that are mild, diffuse . Vital Signs: 10:05 BP 161 / 73; Pulse 63; Resp 24; Temp 98.4(O); Pulse Ox 91% on R/A; tw2 11:20 BP 163 / 66; Pulse 61; Resp 22; Pulse Ox 99% on 3 lpm NC; tw2 12:16 BP 161 / 75; Pulse 60; Resp 22; Pulse Ox 99% on 2 lpm NC; tw2 13:06 BP 161 / 66; Pulse 60; Resp 26; Pulse Ox 88% on R/A; tw2 13:06 Pulse Ox 99% on 2 lpm NC; tw2 14:00 BP 160 / 67; Pulse 61; Resp 17; Pulse Ox 100% on 2 lpm NC; tw2 14:44 BP 160 / 69; Pulse 84; Resp 20; Pulse Ox 96% on 2 lpm NC; tw2 16:19 BP 164 / 83; Pulse 60; Resp 25; Pulse Ox 100% on 2 lpm NC; tw2 10:05 but pt working hard to breath and talking after breaths, provider Juan Pablo Zelaya at bedside tw2 MDM: 10:09 Patient medically screened. jr8 13:37 Data reviewed: vital signs, nurses notes, lab test result(s), EKG, radiologic studies, jr8 plain films. Data interpreted: Pulse oximetry: on room air is 88 %. Counseling: I had a detailed discussion with the patient and/or guardian regarding: the historical points, exam findings, and any diagnostic results supporting the discharge/admit diagnosis, lab results, radiology results, the need for further work-up and treatment in the hospital. ED course: Spoke with Dr. Zurita. He is out of town at this time. Patient with carcinoid syndrome. Believes he can go home at this time since there is not much more we can do. Patient originally agreed and wants to go home as well but can not hardly get out of bed before he becomes hypoxic and short of breath. It is recommended that patient be put in at this time to at least be stabilized before going home since he has no home oxygen or assistance at home at this time. Patient now agrees and wants to be admitted for observation . 09/02 10:10 Order name: Basic Metabolic Panel; Complete Time: 11:09/02 10:10 Order name: CBC with Diff; Complete Time: 11:09/02 10:10 Order name: LFT's; Complete Time: 11:09/02 10:10 Order name: Magnesium; Complete Time: 11:09/02 10:10 Order name: NT PRO-BNP; Complete Time: :09/02 10:10 Order name: PT-INR; Complete Time: 11:09/02 10:10 Order name: Troponin (emerg Dept Use Only); Complete Time: :09/02 10:10 Order name: XRAY Chest (1 view); Complete Time: 12:44 09/02 10:10 Order name: EKG; Complete Time: 10:10 09/02 10:10 Order name: ABG; Complete Time: :09/02 12:03 Order name: Urine Dipstick--Ancillary (enter results); Complete Time: 13:34 09/02 10:10 Order name: Cardiac monitoring; Complete Time: 10:09/02 10:10 Order name: EKG - Nurse/Tech; Complete Time: 10:09/02 10:10 Order name: IV Saline Lock; Complete Time: 10:25 09/02 10:10 Order name: Labs collected and sent; Complete Time: 10:09/02 10:10 Order name: O2 Per Protocol; Complete Time: 10:09/02 10:10 Order name: O2 Sat Monitoring; Complete Time: 10:09/02 13:12 Order name: Diet [address]; Complete Time: 13:13 Administered Medications: 10:35 Drug: SOLU-Medrol 125 mg Route: IVP; Site: right antecubital; tw2 11:13 Follow up: Response: No adverse reaction tw2 10:37 Drug: Xopenex 1.25 mg Route: Inhalation; tw2 11:15 Drug: Lasix 40 mg Route: IVP; Site: right antecubital; tw2 12:15 Follow up: Response: No adverse reaction tw2 Point of Care Testing: Blood Glucose: 16:32 Blood Glucose: 177 mg/dL; tw2 Ranges: Critical Glucose Levels:Adult <50 mg/dl or >400 mg/dl <40 mg/dl or >180 mg/dl Disposition: 17:51 Co-signature as Attending Physician, Donis Mcconnell MD. rn Disposition: 09/02/17 13:41 Hospitalization ordered by Alberto Zurita for Observation. Preliminary diagnosis are Dyspnea, Chronic respiratory failure with hypoxia, Carcinoid syndrome. - Bed requested for Telemetry/MedSurg (observation). - Status is Observation. tw2 - Condition is Fair. - Problem is new. - Symptoms are unchanged. UTI on Admission? No Signatures: Dispatcher [employer] EDMS Sapphire Sahu Roman, MD MD rn Roszak, Josh, PA PA jr8 Marie Isabel RN RN tw2 Corrections: (The following items were deleted from the chart) 14:16 13:41 Hospitalization Ordered by Giovanny García MD for Observation. Preliminary jr8 diagnosis is Dyspnea; Chronic respiratory failure with hypoxia; Carcinoid syndrome. Bed requested for Telemetry/MedSurg (observation). Status is Observation. Condition is Fair. Problem is new. Symptoms are unchanged. UTI on Admission? No. jr8 15:54 14:16 09/02/2017 13:41 Hospitalization Ordered by Bekah Casper MD for Observation. jr8 Preliminary diagnosis is Dyspnea; Chronic respiratory failure with hypoxia; Carcinoid syndrome. Bed requested for Telemetry/MedSurg (observation). Status is Observation. Condition is Fair. Problem is new. Symptoms are unchanged. UTI on Admission? No. jr8 16:16 15:54 09/02/2017 13:41 Hospitalization Ordered by Alberto Zurita MD for Observation. bd Preliminary diagnosis is Dyspnea; Chronic respiratory failure with hypoxia; Carcinoid syndrome. Bed requested for Telemetry/MedSurg (observation). Status is Observation. Condition is Fair. Problem is new. Symptoms are unchanged. UTI on Admission? No. jr8 16:43 16:16 09/02/2017 13:41 Hospitalization Ordered by Alberto Zurita MD for Observation. tw2 Preliminary diagnosis is Dyspnea; Chronic respiratory failure with hypoxia; Carcinoid syndrome. Bed requested for Telemetry/MedSurg (observation). Status is Observation. Condition is Fair. Problem is new. Symptoms are unchanged. UTI on Admission? No. bd
[2017-09-02] MEDS ORDERED: ONDANSETRON 4 MG/2 ML VIAL IV PRN (16:26)
[2017-09-02] MEDS ORDERED: ALBUTEROL 2.5 MG/3 ML NEB SOL NEB PRN (16:26)
[2017-09-02] MEDS ORDERED: IPRATROPIUM BROM 0.5MG/2.5ML NEB PRN (16:26)
[2017-09-02] MEDS ORDERED: ACETAMINOPHEN 500 MG TAB PO PRN (16:26)
[2017-09-02 18:10] VITALS: BMI 21.4
[2017-09-03 04:53] LABS: Absolute Monocytes 0.6 K/uL (0.1-1.3); Hematocrit 34.9 % (39.6-49.0); Lymphocytes % 9.7 % (15.3-44.8); MCV 89.2 fL (80-100); MPV 10.6 fL (7.6-11.3); Monocytes % 5.8 % (3.3-12.3); RBC Red Blood Cell Count 3.91 M/uL (4.33-5.43)
[2017-09-03 05:13] LABS: Potassium 3.6 mmol/L (3.5-5.1)
[2017-09-03] MEDS: LIPASE/PROTEASE/AMYLASE CAP PO SCH ×2 (11:30→16:30)
[2017-09-03] MEDS ORDERED: ENOXAPARIN 40 MG/0.4 ML SQ SCH (17:00)
--- NOTE | 2017-09-03 20:09 | P.HP ---
Certification for Inpatient Patient admitted to: Inpatient With expected LOS: >2 Midnights Patient will require the following post-hospital care: Rehabilitation Practitioner: I am a practitioner with admitting privileges, knowledge of patient current condition, hospital course, and medical plan of care. Services: Services provided to patient in accordance with Admission requirements found in Title 42 Section 412.3 of the Code of Federal Regulations Patient History Date of Service: 09/03/17 Primary Care Provider: Parminder Reason for admission: Dyspnea on exertion History of Present Illness: Patient is an office patient of [facility]. 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 Since then he has been having continuous diarrhea and weight loss. Is continuing chemotherapy with Dr. Alvarado. He has failed xifaxin. Was in the hospital last week. Came to the office on Monday. Normal he presents with shortness of breath on exertion. During his office visit he was normal at rest. However became very short of breath on walking 20 feet. He has lost weight approx 60lbs in the last 6 months. He was started on creon and welchol for pancreatic insufficency. States he has only been to the bathroom 4 times today vs his normal 15 trips. He has only walked in the room. However was able to do so without shortness of breath. The patient lives alone. He has friends a step daughter in the area. Allergies No Known Allergies Allergy (Verified 07/27/17 04:34) Home Medications: Albuterol Sulfate [Ventolin Hfa] 18 gm IH PRN 08/20/17 Apixaban [Eliquis] 5 mg PO BID 08/20/17 Budesonide/Formoterol Fumarate [Symbicort 80-4.5 Mcg Inhaler] 2 puff PO BID 09/30 Ferrous Sulfate [Iron] 325 mg PO DAILY 08/20/17 Liothyronine Sodium [Cytomel] 5 mcg PO DAILY 08/20/17 Loratadine [Claritin] 10 mg PO DAILY 08/20/17 Metoprolol Tartrate [Lopressor] 50 mg PO BID 08/20/17 Multivit-Min/FA/Lycopen/Lutein [Centrum Silver Men Tablet] 1 tab PO DAILY Colesevelam HCl [Welchol] 3,750 mg PO BID #60 packet 08/24/17 Lipase/Protease/Amylase [Manav Hart 12,000 Units Capsule] 2 cap PO AC 30 Days # 240 cap 08/24/17 - Past Medical/Surgical History Has patient received pneumonia vaccine in the past: Yes Diabetic: Yes -: HTN -: GERD -: DM -: Irregular Heart Rate -: Depression -: CHF -: anxiety -: pacemaker -: bowel cancer -: Left knee replacement -: Pacemaker -: Left shoulder sx -: Small/Large Bowel resection r/t obstruction -: Cardiac Bypass - Family History Father -: Heart disease Notes: heart attack Mother -: Lung disease Notes: emphysema - Social History Smoking Status: Former smoker Alcohol use: No CD- Drugs: No Caffeine use: Yes Place of Residence: Home Review of Systems 10-point ROS is otherwise unremarkable General: Weakness Respiratory: SOB with Excertion Gastrointestinal: Diarrhea Physical Examination - Vital Signs Temperature: 98.3 F Blood Pressure: 151/80 Pulse: 72 Respirations: 18 Pulse Ox (%): 98 - Physical Exam General: Alert, In no apparent distress HEENT: Atraumatic, PERRLA, Mucous membr. 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 No microscopic colitis. However he has been getting repeatedly weak and needing visits to the hospital, office or ER. Will see if he is a candidate for in patient PT. Get a nutrition, social work and PT consult. Check a prealbumin. High risks of falls based on his apperance in the office this past Monday. As stated above. He could only walk 15-20 feet. (2) Carcinoid tumor Current Visit: Yes Status: Acute Plan: Continue his treatment with Dr. Pretty. Will discuss with her the lab results from the former hospitalization (3) Atrial fibrillation Current Visit: No Status: Acute Plan: continue metoprolol and eliquis Qualifiers: Atrial fibrillation type: chronic Qualified Code(s): I48.2 - Chronic atrial fibrillation Discharge Plan: LTAC Plan to discharge in: 24 Hours - Advance Directives Does patient have a Living Will: Yes Does patient have a Durable POA for Healthcare: Yes - Code Status/Comfort Care Code Status Assessed: No Code Status: Full Code Physician Review: Patient Assessed, Agree with Above Assessment and Plan Critical Care: No Time Spent Managing Pts Care (In Minutes): 50
[2017-09-03] MEDS ORDERED: ALBUTEROL SULFATE IH SCH (20:30)
[2017-09-03] MEDS: COLESEVELAM HCL PO SCH (21:00)
[2017-09-03] MEDS ORDERED: HOME MED 1 EA UNK (Budesonide/Formoterol Fumarate [Symbicort 80-4.5 Mcg Inhaler] 2 PUFF) PO SCH (21:00)
[2017-09-03] MEDS: APIXABAN 5 MG TABLET PO SCH (21:40)
[2017-09-03] MEDS: METOPROLOL TAR 50 MG TAB PO SCH (21:41)
[2017-09-03 22:48] VITALS: O2SAT 96
[2017-09-04 06:10] LABS: Absolute Lymphocytes (CBC) 1.9 K/uL (0.7-4.9); Absolute Monocytes 0.7 K/uL (0.1-1.3); Absolute Neutrophil 9.3 K/uL (1.8-8.0); Basophils % 0.4 % (0-1.3); Eosinophils % 0.8 % (0-4.4); Lymphocytes % 15.6 % (15.3-44.8); MCH 29.7 pg (27.0-35.0); MCV 89.9 fL (80-100); MPV 10.6 fL (7.6-11.3); Monocytes % 5.9 % (3.3-12.3); RBC Red Blood Cell Count 3.89 M/uL (4.33-5.43)
[2017-09-04 06:30] LABS: Bilirubin Total 0.6 mg/dL (0.2-1.0); Magnesium 1.7 mg/dL (1.8-2.4); Potassium 3.6 mmol/L (3.5-5.1); Protein, Total 6.3 g/dL (6.4-8.2)
[2017-09-04] MEDS ORDERED: PANTOPRAZOLE 40MG TABLET PO SCH (06:30)
[2017-09-04] MEDS: LIPASE/PROTEASE/AMYLASE CAP PO SCH ×4 (07:30→11:30)
--- NOTE | 2017-09-04 07:47 | EKG ---
Test Date: 2017-09-02 Test Time: 10:18:57 Production Planning Manager: DAMIAN MEASUREMENT RESULTS: Intervals: Rate: 60 RI: QRSD: 192 QT: 490 QTc: 490 [place]: P: RI: QRS: -71 T: 108 INTERPRETIVE STATEMENTS: Ventricular-paced rhythm Abnormal ECG Compared to ECG 08/20/2017 15:55:06 Atrial fibrillation no longer present Electronically Signed On 09-04-17 07:47:08 CDT by Ajit Neal
[2017-09-04] MEDS: METOPROLOL TAR 50 MG TAB PO SCH (08:52)
[2017-09-04] MEDS: APIXABAN 5 MG TABLET PO SCH (08:52)
[2017-09-04] MEDS: COLESEVELAM HCL PO SCH (08:53)
[2017-09-04] MEDS ORDERED: LIOTHYRONINE SOD 5 MCG TAB PO SCH (09:00)
[2017-09-04] MEDS ORDERED: FERROUS SULFATE 325 MG TAB PO SCH (09:00)
[2017-09-04 15:08] VITALS: BP 170/74; TEMP 97.6
[2017-09-04] MEDS ORDERED: LIPASE/PROTEASE/AMYLASE CAP PO SCH (20:00)
--- NOTE | 2017-09-05 08:21 | P.DS ---
Admission Date: 09/02/17 Discharge Date: 09/05/17 Primary Care Provider: Parminder Disposition: ROUTINE DISCHARGE Discharge Condition: FAIR Reason for Admission: Dyspnea on exertion - Problems (1) Exocrine pancreatic insufficiency Onset Date: 09/04/17 Status: Chronic (2) Carcinoid tumor Onset Date: 09/04/17 Status: Acute (3) Atrial fibrillation Onset Date: 09/04/17 Status: Acute Qualifiers: Atrial fibrillation type: chronic Qualified Code(s): I48.2 - Chronic atrial fibrillation Brief History of Present Illness: Patient is an office patient of [email or web address]. 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 Since then he has been having continuous diarrhea and weight loss. Is continuing chemotherapy with Dr. Alvarado. He has failed xifaxin. Was in the hospital last week. Came to the office on Monday. Normal he presents with shortness of breath on exertion. During his office visit he was normal at rest. However became very short of breath on walking 20 feet. He has lost weight approx 60lbs in the last 6 months. He was started on creon and welchol for pancreatic insufficency. States he has only been to the bathroom 4 times today vs his normal 15 trips. He has only walked in the room. However was able to do so without shortness of breath. The patient lives alone. He has friends a step daughter in the area. Hospital Course: Patient under observation. Repeatedly complained of shortness of breath. However he never dropped his oxygen level. He has some anxiety from his weight loss. He ambulated well with Physical therapy. Did not qualify for any inpt rehab. Will have him follow up with me as an outpatient. Vital Signs/Physical Exam: Temp Pulse Resp BP Pulse Ox 97.6 F 63 18 170/74 H 96 09/04/17 12:00 09/04/17 12:00 09/04/17 12:00 09/04/17 12:00 09/04/17 12:00 General: Alert, In no apparent distress HEENT: Atraumatic, PERRLA, EOMI Neck: Supple, JVD not distended Respiratory: Clear to auscultation bilaterally, Normal air movement Cardiovascular: Regular rate/rhythm, Normal S1 S2 Gastrointestinal: Normal bowel sounds, No tenderness Musculoskeletal: No tenderness Integumentary: No rashes Neurological: Normal speech, Normal tone, Normal affect Lymphatics: No axilla or inguinal lymphadenopathy Laboratory Data at Discharge: WBC 12.0 K/uL (4.3-10.9) H 09/04/17 05:46 Hgb 11.6 g/dL (13.6-17.9) L 09/04/17 05:46 Hct 35.0 % (39.6-49.0) L 09/04/17 05:46 Plt Count 228 K/uL (152-406) 09/04/17 05:46 PT 22.3 SECONDS (9.5-12.5) H 09/02/17 10:30 INR 1.88 09/02/17 10:30 Sodium 144 mmol/L (136-145) 09/04/17 05:46 Potassium 3.6 mmol/L (3.5-5.1) 09/04/17 05:46 BUN 25 mg/dL (7-18) H 09/04/17 05:46 Creatinine 1.30 mg/dL (0.55-1.3) 09/04/17 05:46 Glucose 114 mg/dL (74-106) H 09/04/17 05:46 Magnesium 1.7 mg/dL (1.8-2.4) L 09/04/17 05:46 Total Bilirubin 0.6 mg/dL (0.2-1.0) 09/04/17 05:46 AST 32 U/L (15-37) 09/04/17 05:46 ALT 47 U/L (12-78) 09/04/17 05:46 Alkaline Phosphatase 83 U/L (45-117) 09/04/17 05:46 Troponin I 0.10 ng/mL (0.0-0.045) H 09/02/17 21:10 Home Medications: Albuterol Sulfate [Ventolin Hfa] 18 gm IH PRN 08/20/17 Apixaban [Eliquis] 5 mg PO BID 08/20/17 Budesonide/Formoterol Fumarate [Symbicort 80-4.5 Mcg Inhaler] 2 puff PO BID 09/30 Ferrous Sulfate [Iron] 325 mg PO DAILY 08/20/17 Liothyronine Sodium [Cytomel] 5 mcg PO DAILY 08/20/17 Loratadine [Claritin] 10 mg PO DAILY 08/20/17 Metoprolol Tartrate [Lopressor] 50 mg PO BID 08/20/17 Multivit-Min/FA/Lycopen/Lutein [Centrum Silver Men Tablet] 1 tab PO DAILY Colesevelam HCl [Welchol] 3,750 mg PO BID #60 packet 08/24/17 Lipase/Protease/Amylase [Thanhon Dr 12,000 Units Capsule] 2 cap PO AC 30 Days # 240 cap 08/24/17 Diet: Regular Activity: Fall precautions Followup: Alberto Zurita MD [Primary Care Provider] - 1 Week (Call for appointment) Ajit Neal MD [ACTIVE - CAN ADMIT] - 09/05/17 9:00 am Time spent managing pt's care (in minutes): 45
== END 2017-09-04 15:02 | disposition home or self-care (01) ==
LOC: ER 09:59 → ERHOLD 13:41 → 2ND 16:26
PROVIDERS: ADMIT Family Medicine; ATTEND Internal Medicine
DX: K86.81 Exocrine pancreatic insufficiency (principal); C7A.00 Malignant carcinoid tumor of unspecified site; I48.2 Chronic atrial fibrillation; I10 Essential (primary) hypertension; E11.9 Type 2 diabetes mellitus without complications; Z96.652 Presence of left artificial knee joint
CPT/HCPCS: 36415 ×2; 71045; 80048 ×2; 80053; 80076; 81003; 82805; 83735 ×2; 83880 ×2; 84134; 84484 ×3; 85025 ×3; 85610; 93005; 96374; 96375; 97163; 99285; G0378 ×2; J1650; J2930; 82962

== ENCOUNTER 2017-09-27 13:31 | Emergency (ER) | payer OTHER ==
--- NOTE | 2017-09-27 14:41 | RAD REPORT ---
EXAM DESCRIPTION: RAD - Chest Single View - 09/27/2017 2:35 pm CLINICAL HISTORY: DYSPNEA Chest pain. COMPARISON: Chest Single View dated 09/02/2017; Chest Single View dated 08/20/2017; Chest Single View d ated 07/26/2017; Chest Single View dated 07/19/2017 FINDINGS: Portable technique limits examination quality. Mild interstitial pulmonary edema. The heart is normal in size. No displaced fractures.Single lead ri ght-sided pacer device noted. Old left-sided pacer wiring is in place.
[2017-09-27 14:42] LABS: Protime INR 1.43
[2017-09-27] MEDS ORDERED: FUROSEMIDE 40 MG/4 ML VIAL ONE (14:49)
[2017-09-27 14:51] LABS: Magnesium 1.7 mg/dL (1.8-2.4); Potassium 3.8 mmol/L (3.5-5.1)
[2017-09-27 14:54] LABS: Absolute Lymphocytes (CBC) 1.5 K/uL (0.7-4.9); Absolute Monocytes 0.4 K/uL (0.1-1.3); Absolute Neutrophil 4.5 K/uL (1.8-8.0); Basophils % 0.7 % (0-1.3); Eosinophils % 2.5 % (0-4.4); Hematocrit 35.1 % (39.6-49.0); Lymphocytes % 23.1 % (15.3-44.8); MCH 29.6 pg (27.0-35.0); MCV 91.3 fL (80-100); MPV 10.4 fL (7.6-11.3); Monocytes % 6.4 % (3.3-12.3); RBC Red Blood Cell Count 3.84 M/uL (4.33-5.43)
--- NOTE | 2017-09-27 15:37 | EKG ---
Test Date: 2017-09-27 Test Time: 14:30:27 [employer]: JULIO MEASUREMENT RESULTS: Intervals: Rate: 65 [place]: QRSD: 192 QT: 484 QTc: 503 [place]: P: [place]: QRS: -77 T: 106 INTERPRETIVE STATEMENTS: Ventricular-paced rhythm Abnormal ECG Compared to ECG 09/02/2017 10:18:57 No significant changes Electronically Signed On 09-27-17 15:36:47 CDT by Ajit Neal
--- NOTE | 2017-09-27 16:01 | ER ---
Nurse's Notes [facility] Name: Sean Pascual Age: 76 yrs Sex: Male : 1940 Arrival Date: 09/27/2017 Time: 13:33 Bed 20 Private MD: Alberto Zurita Diagnosis: Shortness of breath;Carcinoid syndrome Presentation: 09/27 13:41 Presenting complaint: Patient states: Well I have had some shortness of breath and sg difficulty breathing for last couple of months. I was seen and given fluid pills, got better and now its back again. pt denies N/V/D, denies pain of any sort. Transition of care: patient was not received from another setting of care. Onset of symptoms was September 27, 2017. Risk Assessment: Do you want to hurt yourself or someone else? Patient reports no desire to harm self or others. Initial Sepsis Screen: Does the patient meet any 2 criteria? No. Patient's initial sepsis screen is negative. Does the patient have a suspected source of infection? No. Patient's initial sepsis screen is negative. Care prior to arrival: None. 13:41 Method Of Arrival: Ambulatory sg 13:41 Acuity: TIERRA 3 sg Triage Assessment: 16:08 Respiratory: Onset: The symptoms/episode began/occurred. aj Historical: - Allergies: 13:43 No Known Allergies; sg - PMHx: 13:43 Cancer; Diabetes - NIDDM; Hypertension; sg - PSHx: 13:43 Bowel resection; left shoudler surgery; left knee surgery; sg - Immunization history:: Adult Immunizations unknown. - Social history:: Smoking status: Patient/guardian denies using tobacco. - Ebola Screening: : Patient negative for fever greater than or equal to 101.5 degrees Fahrenheit, and additional compatible Ebola Virus Disease symptoms Patient denies exposure to infectious person Patient denies travel to an Ebola-affected area in the 21 days before illness onset No symptoms or risks identified at this time. Screenin:55 Abuse screen: Denies threats or abuse. Denies injuries from another. Nutritional aj screening: No deficits noted. Tuberculosis screening: No symptoms or risk factors identified. Fall Risk None identified. Assessment: 13:55 General: Appears in no apparent distress. comfortable, slender, Behavior is calm, aj cooperative, appropriate for age. Pain: Denies pain. Neuro: Level of Consciousness is awake, alert, obeys commands, Oriented to person, place, time, situation, Appropriate for age. Cardiovascular: Heart tones S1 S2 present Capillary refill is > 3 seconds in bilateral fingers Patient's skin is warm and dry. Rhythm is regular. Respiratory: Airway is patent Trachea midline Respiratory effort is even, unlabored, Respiratory pattern is regular, tachypnea Breath sounds are coarse in right lower lobe and right posterior lower lobe. GI: Abdomen is flat. Derm: Skin is intact, is fragile, is thin, Skin is pink, warm \T\ dry. normal. 16:06 Reassessment: Patient appears in no apparent distress at this time. No changes from aj previously documented assessment. Patient and/or family updated on plan of care and expected duration. Pain level reassessed. Patient is alert, oriented x 3, equal unlabored respirations, skin warm/dry/pink. Patient denies pain at this time. Patient states feeling better. Vital Signs: 13:43 BP 152 / 67; Pulse 77; Resp 16 S; Temp 98.2; Pulse Ox 96% on R/A; Pain 0/10; sg 15:17 BP 158 / 61; Pulse 61; Resp 18; Pulse Ox 100% on R/A; aj 16:06 BP 151 / 78; Pulse 84; Resp 20; Pulse Ox 99% on R/A; aj ED Course: 13:33 Patient arrived in ED. rg4 13:33 Alberto Zurita MD is Private Physician. rg4 13:42 Triage completed. sg 13:43 Arm band placed on. sg 13:48 Rhonda Robbins, RN is Primary Nurse. aj 13:55 Patient has correct armband on for positive identification. aj 13:58 Juan Pablo Guy PA is PHCP. jr8 13:58 Avila Haque MD is Attending Physician. jr8 14:08 Inserted saline lock: 20 gauge in right forearm, using aseptic technique. Blood aj collected. 14:34 X-ray completed. Portable x-ray completed in exam room. Patient tolerated procedure jb2 well. 14:35 XRAY Chest (1 view) In Process Unspecified. EDMS 16:00 Alberto Zurita MD is Referral Physician. jr8 16:06 No provider procedures requiring assistance completed. IV discontinued, intact, aj bleeding controlled, No redness/swelling at site. Pressure dressing applied. Administered Medications: 14:48 Drug: Lasix 40 mg Route: IVP; Site: right forearm; vesta 16:08 Follow up: Response: No adverse reaction aj Outcome: 16:01 Discharge ordered by MD. acosta 16:06 Discharged to home ambulatory. vesta 16:06 Condition: good 16:06 Discharge instructions given to patient, Instructed on discharge instructions, follow up and referral plans. Demonstrated understanding of instructions, follow-up care. 16:09 Patient left the ED. vesta Signatures: Dispatcher [employer] EDS[employer] Aquino RN Rhonda Hardwick RN RN Riley Ross Josh, PA PA jr8 Garcia, Rubi rg4
--- NOTE | 2017-09-27 16:01 | EDPHYS ---
Physician Documentation [facility] Name: Sean Pascual Age: 76 yrs Sex: Male : 1940 Arrival Date: 09/27/2017 Time: 13:33 Bed 20 Private MD: Alberto Zurita ED Physician Avila Haque HPI: 09/27 15:45 This 76 yrs old Male presents to ER via Ambulatory with complaints of jr8 Breathing Difficulty. 15:45 The patient has shortness of breath at rest. Onset: The symptoms/episode began/occurred jr8 gradually, 2 day(s) ago. Associated signs and symptoms: The patient has no apparent associated signs or symptoms. Severity of symptoms: At their worst the symptoms were mild in the emergency department the symptoms are unchanged. The patient has experienced similar episodes in the past, several times. The patient has not recently seen a physician. Patient with history of carcinoid syndrome and has frequent bouts of diarrhea and shortness of breath. Stated that he had another flare up of condition . Historical: - Allergies: 13:43 No Known Allergies; sg - PMHx: 13:43 Cancer; Diabetes - NIDDM; Hypertension; sg - PSHx: 13:43 Bowel resection; left shoudler surgery; left knee surgery; sg - Immunization history:: Adult Immunizations unknown. - Social history:: Smoking status: Patient/guardian denies using tobacco. - Ebola Screening: : Patient negative for fever greater than or equal to 101.5 degrees Fahrenheit, and additional compatible Ebola Virus Disease symptoms Patient denies exposure to infectious person Patient denies travel to an Ebola-affected area in the 21 days before illness onset No symptoms or risks identified at this time. ROS: 15:45 Eyes: Negative for injury, pain, redness, and discharge, ENT: Negative for injury, jr8 pain, and discharge, Neck: Negative for injury, pain, and swelling, Cardiovascular: Negative for chest pain, palpitations, and edema, Abdomen/GI: Negative for abdominal pain, nausea, vomiting, diarrhea, and constipation, Back: Negative for injury and pain, MS/Extremity: Negative for injury and deformity, Skin: Negative for injury, rash, and discoloration, Neuro: Negative for headache, weakness, numbness, tingling, and seizure. 15:45 Respiratory: Positive for shortness of breath. Exam: 15:45 Eyes: Pupils equal round and reactive to light, extra-ocular motions intact. Lids and jr8 lashes normal. Conjunctiva and sclera are non-icteric and not injected. Cornea within normal limits. Periorbital areas with no swelling, redness, or edema. ENT: Nares patent. No nasal discharge, no septal abnormalities noted. Tympanic membranes are normal and external auditory canals are clear. Oropharynx with no redness, swelling, or masses, exudates, or evidence of obstruction, uvula midline. Mucous membranes moist. Neck: Trachea midline, no thyromegaly or masses palpated, and no cervical lymphadenopathy. Supple, full range of motion without nuchal rigidity, or vertebral point tenderness. No Meningismus. Cardiovascular: Regular rate and rhythm with a normal S1 and S2. No gallops, murmurs, or rubs. Normal PMI, no JVD. No pulse deficits. Respiratory: Lungs have equal breath sounds bilaterally, clear to auscultation and percussion. No rales, rhonchi or wheezes noted. No increased work of breathing, no retractions or nasal flaring. Abdomen/GI: Soft, non-tender, with normal bowel sounds. No distension or tympany. No guarding or rebound. No evidence of tenderness throughout. Back: No spinal tenderness. No costovertebral tenderness. Full range of motion. Skin: Warm, dry with normal turgor. Normal color with no rashes, no lesions, and no evidence of cellulitis. MS/ Extremity: Pulses equal, no cyanosis. Neurovascular intact. Full, normal range of motion. Neuro: Awake and alert, GCS 15, oriented to person, place, time, and situation. Cranial nerves II-XII grossly intact. Motor strength 5/5 in all extremities. Sensory grossly intact. Cerebellar exam normal. Normal gait. Vital Signs: 13:43 BP 152 / 67; Pulse 77; Resp 16 S; Temp 98.2; Pulse Ox 96% on R/A; Pain 0/10; sg 15:17 BP 158 / 61; Pulse 61; Resp 18; Pulse Ox 100% on R/A; aj 16:06 BP 151 / 78; Pulse 84; Resp 20; Pulse Ox 99% on R/A; aj MDM: 14:09 Patient medically screened. jr8 16:00 Data reviewed: vital signs, nurses notes, lab test result(s), EKG, radiologic studies, jr8 plain films, and as a result, I will discharge patient. Data interpreted: Pulse oximetry: on room air is 100 %. Interpretation: normal. Counseling: I had a detailed discussion with the patient and/or guardian regarding: the historical points, exam findings, and any diagnostic results supporting the discharge/admit diagnosis, lab results, radiology results, the need for outpatient follow up, a family practitioner, to return to the emergency department if symptoms worsen or persist or if there are any questions or concerns that arise at home. ED course: Patient feeling much better after being diuresed. Will send home to f/u with PCP tomorrow . 09/27 14:18 Order name: Basic Metabolic Panel; Complete Time: 15:09/27 14:18 Order name: CBC with Diff; Complete Time: 15:09/27 14:18 Order name: Magnesium; Complete Time: 15:09/27 14:18 Order name: NT PRO-BNP; Complete Time: 15:09/27 14:18 Order name: PT-INR; Complete Time: 14:43 09/27 14:18 Order name: XRAY Chest (1 view); Complete Time: 14:42 09/27 14:18 Order name: EKG; Complete Time: 14:18 09/27 14:18 Order name: Cardiac monitoring; Complete Time: 14:36 09/27 14:18 Order name: EKG - Nurse/Tech; Complete Time: 16:08 09/27 14:18 Order name: IV Saline Lock; Complete Time: 14:36 09/27 14:18 Order name: Labs collected and sent; Complete Time: 14:36 09/27 14:18 Order name: O2 Per Protocol; Complete Time: 14:36 09/27 14:18 Order name: O2 Sat Monitoring; Complete Time: 14:37 Administered Medications: 14:48 Drug: Lasix 40 mg Route: IVP; Site: right forearm; aj 16:08 Follow up: Response: No adverse reaction aj Disposition: 19:07 Co-signature as Attending Physician, Avila Haque MD I agree with the assessment and kdr plan of care. Disposition: 08/15/18 16:01 Discharged to Home. Impression: Shortness of breath, Carcinoid syndrome. - Condition is Stable. - Discharge Instructions: Shortness of Breath. - Medication Reconciliation Form, Thank You Letter, Antibiotic Education, Prescription Opioid Use form. - Follow up: Alberto Zurita MD; When: Tomorrow; Reason: Recheck today's complaints, Continuance of care, Re-evaluation by your physician. - Problem is new. - Symptoms have improved. Signatures: Dispatcher [employer] Aquino RN RN sg Myers, Amanda, RN RN aj Rittger, Kevin, MD MD kdr Roszak, Josh, PA PA jr8 Corrections: (The following items were deleted from the chart) 16:09 16:01 09/27/2017 16:01 Discharged to Home. Impression: Shortness of breath; Carcinoid aj syndrome. Condition is Stable. Forms are Medication Reconciliation Form, Thank You Letter, Antibiotic Education, Prescription Opioid Use. Follow up: Alberto Zurita; When: Tomorrow; Reason: Recheck today's complaints, Continuance of care, Re-evaluation by your physician. Problem is new. Symptoms have improved. jr8
[2017-09-27 16:14] VITALS: TEMP 98.2
[2017-09-27 16:16] VITALS: BP 151/78; O2SAT 99
== END 2017-09-27 16:09 | disposition home or self-care (01) ==
LOC: ER 13:31
DX: E34.0 Carcinoid syndrome (principal); I10 Essential (primary) hypertension
CPT/HCPCS: 36415; 71045; 80048; 83735; 83880; 85025; 85610; 93005; 96374; 99284

== ENCOUNTER 2017-10-19 21:08 | Observation (INO) | payer OTHER ==
[2017-10-19] MEDS ORDERED: ALBUTEROL 2.5 MG/3 ML NEB SOL ONE (21:50)
[2017-10-19] MEDS ORDERED: IPRATROPIUM BROM 0.5MG/2.5ML ONE (21:50)
[2017-10-19 22:18] LABS: Absolute Lymphocytes (CBC) 1.5 K/uL (0.7-4.9); Absolute Monocytes 0.4 K/uL (0.1-1.3); Absolute Neutrophil 3.8 K/uL (1.8-8.0); Basophils % 0.8 % (0-1.3); Hematocrit 32.9 % (39.6-49.0); Lymphocytes % 25.4 % (15.3-44.8); MCH 31.4 pg (27.0-35.0); MCV 92.6 fL (80-100); Monocytes % 6.8 % (3.3-12.3); RBC Red Blood Cell Count 3.55 M/uL (4.33-5.43)
[2017-10-19 22:24] LABS: Albumin 3.5 g/dL (3.4-5.0); Bilirubin Total 0.6 mg/dL (0.2-1.0); Magnesium 1.6 mg/dL (1.8-2.4); Potassium 3.7 mmol/L (3.5-5.1); Protein, Total 7.1 g/dL (6.4-8.2); Troponin (Emerg Dept Use Only) 0.1 ng/mL (0.0-0.045)
[2017-10-19 22:32] LABS: Protime INR 1.4
[2017-10-20] MEDS ORDERED: ACETAMINOPHEN 500 MG TAB PO PRN (00:51)
[2017-10-20] MEDS ORDERED: ALBUTEROL 2.5 MG/3 ML NEB SOL NEB PRN (00:51)
[2017-10-20] MEDS ORDERED: IPRATROPIUM BROM 0.5MG/2.5ML NEB PRN (00:51)
--- NOTE | 2017-10-20 00:57 | EDPHYS ---
Physician Documentation [facility] Name: Sean Pascual Age: 77 yrs Sex: Male : 1940 Arrival Date: 10/19/2017 Time: 21:12 Bed 20 Private MD: ED Physician Gurpreet White HPI: 10/19 21:40 This 77 yrs old Male presents to ER via Wheelchair with complaints of ps1 Shortness Of Breath. 21:40 patient has a history of CHF and on Lasix. Recent increase to 80 from 40 bid per ps1 Neal. Now having exertional dyspnea. Can ambulate about 25 feet. Multiple visits for the same. States that he has had increased UOP. No leg swelling. . Historical: - Allergies: 21:14 No Known Allergies; aj - Home Meds: 21:14 Anoro Ellipta 62.5-25 mcg/actuation inhalation dsdv 1 puff once daily [Active]; aj apixaban Oral 5 mg 2 times per day [Active]; Centrum Silver Oral daily [Active]; Creon 6,000-19,000 -30,000 unit Oral cpDR 4 caps 3 times per day [Active]; Iron CR Oral daily [Active]; liothyronine 5 mcg Oral tab 1 tab once daily [Active]; loratadine 10 mg Oral tab 1 tab once daily [Active]; metoprolol tartrate 100 mg Oral tab [Active]; Symbicort 160-4.5 mcg/actuation inhalation HFAA 2 puffs 2 times per day [Active]; Ventolin Rotahaler/Rotacaps Inhl as needed [Active]; WelChol 3.75 gram Oral pwpk 1 packet once daily [Active]; - PMHx: 21:14 Cancer; Diabetes - NIDDM; Hypertension; aj - PSHx: 21:14 Bowel resection; left shoudler surgery; left knee surgery; aj - Immunization history:: Adult Immunizations up to date. - Social history:: Smoking status: Patient/guardian denies using tobacco. - Ebola Screening: : Patient negative for fever greater than or equal to 101.5 degrees Fahrenheit, and additional compatible Ebola Virus Disease symptoms Patient denies exposure to infectious person Patient denies travel to an Ebola-affected area in the 21 days before illness onset No symptoms or risks identified at this time. ROS: 21:40 Constitutional: Negative for fever, chills, and weight loss, Eyes: Negative for injury, ps1 pain, redness, and discharge, ENT: Negative for injury, pain, and discharge, Cardiovascular: Negative for chest pain, palpitations, and edema, Abdomen/GI: Negative for abdominal pain, nausea, vomiting, diarrhea, and constipation, Back: Negative for injury and pain, MS/Extremity: Negative for injury and deformity, Skin: Negative for injury, rash, and discoloration, Neuro: Negative for headache, weakness, numbness, tingling, and seizure. 21:40 Respiratory: Positive for dyspnea on exertion, shortness of breath. Exam: 21:40 Constitutional: This is a well developed, well nourished patient who is awake, alert, ps1 and in no acute distress. Head/Face: Normocephalic, atraumatic. Eyes: Pupils equal round and reactive to light, extra-ocular motions intact. Lids and lashes normal. Conjunctiva and sclera are non-icteric and not injected. Chest/axilla: Normal chest wall appearance and motion. Nontender with no deformity. No lesions are appreciated. Respiratory: Lungs have equal breath sounds bilaterally, clear to auscultation and percussion. No rales, rhonchi or wheezes noted. No increased work of breathing, no retractions or nasal flaring. Abdomen/GI: Soft, non-tender, with normal bowel sounds. No distension or tympany. No guarding or rebound. No evidence of tenderness throughout. Back: No spinal tenderness. No costovertebral tenderness. Full range of motion. Skin: Warm, dry with normal turgor. Normal color with no rashes, no lesions, and no evidence of cellulitis. MS/ Extremity: Pulses equal, no cyanosis. Neurovascular intact. Full, normal range of motion. Neuro: Awake and alert, GCS 15, oriented to person, place, time, and situation. Cranial nerves II-XII grossly intact. Sensory grossly intact. 21:40 Chest/axilla: Inspection: pacer. 21:40 Cardiovascular: Rate: normal, Rhythm: regular, Pulses: no pulse deficits are appreciated, JVD: is not appreciated. Vital Signs: 21:14 BP 148 / 78; Pulse 63; Resp 20; Temp 97.8; Pulse Ox 100% on R/A; Weight 74.39 kg; aj Height 6 ft. 2 in. (187.96 cm); 22:07 BP 150 / 56; Pulse 60; Resp 22 S; Pulse Ox 100% on R/A; jd3 22:44 BP 155 / 64; Pulse 63; Resp 20 S; Pulse Ox 98% on R/A; jd3 23:18 BP 139 / 55; Pulse 64; Resp 16 S; Pulse Ox 100% on R/A; jd3 0907 00:12 BP 151 / 68; Pulse 60; Resp 20 S; Pulse Ox 100% on R/A; jd3 00:54 BP 156 / 59; Pulse 60; Resp 19 S; Pulse Ox 100% on R/A; jd3 01:11 Weight 76.07 kg (M); ak1 02:22 BP 154 / 57; Pulse 64; Resp 20 S; Pulse Ox 100% on R/A; jd3 01:11 Body Mass Index 21.53 (76.07 kg, 187.96 cm) ak1 MDM: 10/19 21:25 Patient medically screened. ps1 10/20 00:57 Data reviewed: vital signs, nurses notes, lab test result(s), EKG, and as a result, I ps1 will admit patient. Counseling: I had a detailed discussion with the patient and/or guardian regarding: the historical points, exam findings, and any diagnostic results supporting the discharge/admit diagnosis, the presence of at least one elevated blood pressure reading (>120/80) during this emergency department visit, the need for further work-up and treatment in the hospital. 10/19 21:40 Order name: CBC with Diff; Complete Time: 22:23 ps1 10/19 21:40 Order name: Magnesium; Complete Time: 22:34 ps1 10/19 21:40 Order name: NT PRO-BNP; Complete Time: 22:34 ps1 10/19 21:40 Order name: PT-INR; Complete Time: 22:34 ps1 10/19 21:40 Order name: Ptt, Activated; Complete Time: 22:34 ps1 10/19 21:40 Order name: Troponin (emerg Dept Use Only); Complete Time: 22:34 ps1 10/19 21:40 Order name: CMP; Complete Time: 22:34 ps1 10/19 23:41 Order name: Troponin (emerg Dept Use Only); Complete Time: 00:39 ps1 10/20 00:09 Order name: Urine Dipstick--Ancillary (enter results); Complete Time: 01:58 rg2 10/20 00:53 Order name: Basic Metabolic Panel EDMS 10/20 00:53 Order name: Basic Metabolic Panel EDMS 10/20 00:53 Order name: CBC with Automated Diff EDMS 10/20 00:53 Order name: CBC with Automated Diff EDMS 10/20 00:53 Order name: NT PRO-BNP EDMS 10/19 21:40 Order name: EKG; Complete Time: 21:41 ps1 10/19 21:40 Order name: Cardiac monitoring; Complete Time: 22: ps1 10/19 21:40 Order name: EKG - Nurse/Tech; Complete Time: 22: ps1 10/19 21:40 Order name: IV Saline Lock; Complete Time: 22: ps1 10/19 21:40 Order name: Labs collected and sent; Complete Time: 22: ps1 10/19 21:40 Order name: O2 Per Protocol; Complete Time: 21:41 ps1 10/19 21:40 Order name: O2 Sat Monitoring; Complete Time: 21:41 ps1 10/19 21:40 Order name: Urine Dipstick-Ancillary (obtain specimen); Complete Time: 00:09 ps1 10/20 00:53 Order name: NT PRO-BNP EDMS 10/20 00:53 Order name: Troponin I EDMS 10/20 00:53 Order name: Troponin I EDMS 10/20 00:53 Order name: Troponin I EDMS EC/06 21:59 Rate is 60 beats/min. Rhythm is regular. ID interval is normal. QRS interval is normal. ps1 No ST changes noted. Clinical impression: paced, no sgarbossa. Interpreted by me. Administered Medications: 21:49 Drug: DuoNeb (3:1) (2.5 mg - 0.5 mg) 3 ml Route: Nebulizer; jd3 22:45 Follow up: Response: No adverse reaction jd3 10/20 01:22 Drug: Heparin (HI Drip) 12 units/kg/hr - (HEParin 69594 units, D5W 500 ml) jd3 {Co-Signature: ak1 (Melly Dawkins RN).} Route: IV; Rate: calculated rate; Site: right antecubital; 02:23 Follow up: Response: No adverse reaction; IV Status: Infusion continued upon admission jd3 Disposition: 10/20/17 00:56 Hospitalization ordered by Alberto Zurita for Observation. Preliminary diagnosis are acute chf exacerbation, elevated troponin. - Bed requested for Telemetry/MedSurg (observation). - Status is Observation. jd3 - Condition is Stable. - Problem is new. - Symptoms have improved. UTI on Admission? No Signatures: Dispatcher [employer] EDMS Nadiya Mueller RN Rhonda So RN RN aj Davies, Jonathon, RN RN jGurpreet Navarro MD MD ps1 Melly Dawkins RN ak1 Corrections: (The following items were deleted from the chart) 01:10 00:56 Hospitalization Ordered by Alberto Zurita MD for Observation. Preliminary diagnosis kl is acute chf exacerbation; elevated troponin. Bed requested for Telemetry/MedSurg (observation). Status is Observation. Condition is Stable. Problem is new. Symptoms have improved. UTI on Admission? No. ps1 02:27 01:10 10/20/2017 00:56 Hospitalization Ordered by Alberto Zurita MD for Observation. jd3 Preliminary diagnosis is acute chf exacerbation; elevated troponin. Bed requested for Telemetry/MedSurg (observation). Status is Observation. Condition is Stable. Problem is new. Symptoms have improved. UTI on Admission? No. kl
--- NOTE | 2017-10-20 00:57 | ER ---
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 Transition of care: patient was not received from another setting of care. Onset of symptoms was October 19, 2017. Risk Assessment: Do you want to hurt yourself or someone else? Patient reports no desire to harm self or others. Initial Sepsis Screen: Does the patient meet any 2 criteria? No. Patient's initial sepsis screen is negative. Does the patient have a suspected source of infection? No. Patient's initial sepsis screen is negative. Care prior to arrival: None. 21:12 Method Of Arrival: Wheelchair aj 21:12 Acuity: TIERRA 3 aj Triage Assessment: 21:14 General: Appears in no apparent distress. comfortable, Behavior is calm, cooperative, aj appropriate for age. Pain: Denies pain. Neuro: Level of Consciousness is awake, alert, obeys commands, Oriented to person, place, time, situation, Appropriate for age. Respiratory: Reports shortness of breath Airway is patent Respiratory effort is even, unlabored, Respiratory pattern is regular, symmetrical, Onset: The symptoms/episode began/occurred just prior to arrival, the patient reports symptoms have resolved. Derm: Skin is intact, is healthy with good turgor, Skin is pink, warm \T\ dry. normal. Historical: - Allergies: 21:14 No Known Allergies; aj - Home Meds: 21:14 Anoro Ellipta 62.5-25 mcg/actuation inhalation dsdv 1 puff once daily [Active]; aj apixaban Oral 5 mg 2 times per day [Active]; Centrum Silver Oral daily [Active]; Creon 6,000-19,000 -30,000 unit Oral cpDR 4 caps 3 times per day [Active]; Iron CR Oral daily [Active]; liothyronine 5 mcg Oral tab 1 tab once daily [Active]; loratadine 10 mg Oral tab 1 tab once daily [Active]; metoprolol tartrate 100 mg Oral tab [Active]; Symbicort 160-4.5 mcg/actuation inhalation HFAA 2 puffs 2 times per day [Active]; Ventolin Rotahaler/Rotacaps Inhl as needed [Active]; WelChol 3.75 gram Oral pwpk 1 packet once daily [Active]; - PMHx: 21:14 Cancer; Diabetes - NIDDM; Hypertension; aj - PSHx: 21:14 Bowel resection; left shoudler surgery; left knee surgery; aj - Immunization history:: Adult Immunizations up to date. - Social history:: Smoking status: Patient/guardian denies using tobacco. - Ebola Screening: : Patient negative for fever greater than or equal to 101.5 degrees Fahrenheit, and additional compatible Ebola Virus Disease symptoms Patient denies exposure to infectious person Patient denies travel to an Ebola-affected area in the 21 days before illness onset No symptoms or risks identified at this time. Screenin:38 Abuse screen: Denies threats or abuse. Nutritional screening: Nutritional screening: No jd3 deficits noted. Tuberculosis screening: No symptoms or risk factors identified. Fall Risk Ambulatory Aid- None/Bed Rest/Nurse Assist (0 pts). Gait- Normal/Bed Rest/Wheelchair (0 pts) Mental Status- Oriented to own ability (0 pts). Total Garcia Fall Scale indicates No Risk (0-24 pts). Assessment: 21:37 General: Appears in no apparent distress. uncomfortable, Behavior is calm, cooperative, jd3 appropriate for age. Pain: Denies pain. Neuro: Level of Consciousness is awake, alert, obeys commands, Oriented to person, place, time, situation. Cardiovascular: Heart tones S1 S2 present Capillary refill < 3 seconds Patient's skin is warm and dry. Respiratory: Reports shortness of breath Airway is patent Respiratory effort is even, unlabored, Respiratory pattern is regular, symmetrical, Breath sounds are clear bilaterally. GI: No signs and/or symptoms were reported involving the gastrointestinal system. : No signs and/or symptoms were reported regarding the genitourinary system. EENT: No signs and/or symptoms were reported regarding the EENT system. Derm: Skin is intact, Skin is dry, Skin is normal, Skin temperature is warm. Musculoskeletal: Circulation, motion, and sensation intact. Range of motion: intact in all extremities. 22:46 Reassessment: Patient appears in no apparent distress at this time. Patient and/or jd3 family updated on plan of care and expected duration. Pain level reassessed. Patient is alert, oriented x 3, equal unlabored respirations, skin warm/dry/pink. Patient states feeling better. 23:18 Reassessment: Patient appears in no apparent distress at this time. Patient and/or jd3 family updated on plan of care and expected duration. Pain level reassessed. Patient is alert, oriented x 3, equal unlabored respirations, skin warm/dry/pink. 10/20 00:12 Reassessment: Patient appears in no apparent distress at this time. No changes from jd3 previously documented assessment. Patient and/or family updated on plan of care and expected duration. Pain level reassessed. Patient is alert, oriented x 3, equal unlabored respirations, skin warm/dry/pink. 00:54 Reassessment: Patient appears in no apparent distress at this time. No changes from jd3 previously documented assessment. Patient and/or family updated on plan of care and expected duration. Pain level reassessed. Patient is alert, oriented x 3, equal unlabored respirations, skin warm/dry/pink. 01:08 Reassessment: weight-based heparin protocol sheet signed by Dr. White with verbal ak1 instructions to do not administer the initial loading dose, to only infuse at diagnosis #2, AMI with thrombolytic. pt currently on Eliquis at home. 02:27 Reassessment: Patient appears in no apparent distress at this time. No changes from jd3 previously documented assessment. Patient and/or family updated on plan of care and expected duration. Pain level reassessed. Patient is alert, oriented x 3, equal unlabored respirations, skin warm/dry/pink. Vital Signs: 10/19 21:14 BP 148 / 78; Pulse 63; Resp 20; Temp 97.8; Pulse Ox 100% on R/A; Weight 74.39 kg; aj Height 6 ft. 2 in. (187.96 cm); 22:07 BP 150 / 56; Pulse 60; Resp 22 S; Pulse Ox 100% on R/A; jd3 22:44 BP 155 / 64; Pulse 63; Resp 20 S; Pulse Ox 98% on R/A; jd3 23:18 BP 139 / 55; Pulse 64; Resp 16 S; Pulse Ox 100% on R/A; jd3 10/20 00:12 BP 151 / 68; Pulse 60; Resp 20 S; Pulse Ox 100% on R/A; jd3 00:54 BP 156 / 59; Pulse 60; Resp 19 S; Pulse Ox 100% on R/A; jd3 01:11 Weight 76.07 kg (M); ak1 02:22 BP 154 / 57; Pulse 64; Resp 20 S; Pulse Ox 100% on R/A; jd3 01:11 Body Mass Index 21.53 (76.07 kg, 187.96 cm) nh1 ED Course: 10/19 21:12 Patient arrived in ED. aj 21:13 Triage completed. aj 21:14 Arm band placed on left wrist. Patient placed in waiting room, Patient notified of wait aj time. 21:22 Sathya Levy, JIM is Primary Nurse. jd3 21:24 Gurpreet White MD is Attending Physician. ps1 21:39 Patient has correct armband on for positive identification. Bed in low position. Call jd3 light in reach. Side rails up X 1. Adult w/ patient. 22:00 Inserted saline lock: 20 gauge in right antecubital area, using aseptic technique. jd3 Blood collected. 22:41 Warm blanket given. jd3 10/20 00:56 Alberto Zurita MD is Hospitalizing Provider. ps1 02:22 No provider procedures requiring assistance completed. Patient admitted, IV remains in jd3 place. Administered Medications: 10/19 21:49 Drug: DuoNeb (3:1) (2.5 mg - 0.5 mg) 3 ml Route: Nebulizer; jd3 22:45 Follow up: Response: No adverse reaction jd3 10/20 01:22 Drug: Heparin (DE Drip) 12 units/kg/hr - (HEParin 83541 units, D5W 500 ml) jd3 {Co-Signature: ak1 (Melly Dawkins RN).} Route: IV; Rate: calculated rate; Site: right antecubital; 02:23 Follow up: Response: No adverse reaction; IV Status: Infusion continued upon admission jd3 Outcome: 00:56 Decision to Hospitalize by Provider. ps1 02:22 Admitted to Tele accompanied by tech, via wheelchair, room 414, with chart, Report jd3 called to Bonnie FERNANDEZ 02:22 Condition: stable 02:22 Instructed on the need for admit, Demonstrated understanding of instructions. 02:27 Patient left the ED. jd3 Signatures: Rhonda Robbins RN RN aj Krenek, Amber, RN RN ak1 Sathya Levy RN RN jd3 Gurpreet White MD MD ps1 Melly barragan1
[2017-10-20] MEDS ORDERED: HEPARIN/D5W 25,000 UNIT/500 ML BAG IV ONE (01:04)
[2017-10-20] MEDS ORDERED: ALBUTEROL 2.5 MG/3 ML NEB SOL ONE (01:05)
[2017-10-20] MEDS ORDERED: IPRATROPIUM BROM 0.5MG/2.5ML ONE (01:06)
[2017-10-20 01:40] LABS: Urine Blood NEGATIVE (NEG); Urine Glucose NEGATIVE (NEG); Urine Protein NEGATIVE (NEG); Urine pH 5.5 (5.0-7.0)
[2017-10-20] MEDS ORDERED: HEPARIN/D5W 25,000 UNIT/500 ML BAG IV SCH (03:00)
[2017-10-20 05:27] VITALS: BMI 21.5
[2017-10-20] MEDS ORDERED: D5 0.45 NS 1,000 ML IV SCH (07:00)
--- NOTE | 2017-10-20 07:33 | EKG ---
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
--- NOTE | 2017-10-20 08:58 | P.HP ---
Certification for Inpatient Patient admitted to: Observation With expected LOS: <2 Midnights Patient will require the following post-hospital care: None Practitioner: I am a practitioner with admitting privileges, knowledge of patient current condition, hospital course, and medical plan of care. Services: Services provided to patient in accordance with Admission requirements found in Title 42 Section 412.3 of the Code of Federal Regulations Patient History Date of Service: 10/20/17 Primary Care Provider: Parminder Reason for admission: shortness of breath History of Present Illness: Patient is an office patient of [facility]. He had a carcinoid tumor resection. Since then he has been having bouts of diarrhea. this has greatly effected his life as he has a number of accidents. he also has been loosing weight and getting short of breath during these episodes and sometimes with exertion. The patient has multiple visits to the ER. Feels better with some fluids and wants to go home the next day. He is asking to go home this morning as well. He has not had any diarrhea this morning. His last weight was 169 on 10/07/15 in the office. He is not currently complaining of any shortness of breath. Allergies No Known Allergies Allergy (Verified 10/20/17 00:58) Home Medications: Albuterol Sulfate [Ventolin Hfa] 18 gm IH PRN 08/20/17 Apixaban [Eliquis] 5 mg PO BID 08/20/17 Liothyronine Sodium [Cytomel] 5 mcg PO DAILY 08/20/17 Metoprolol Tartrate [Lopressor] 50 mg PO BID 08/20/17 Multivit-Min/FA/Lycopen/Lutein [Centrum Silver Men Tablet] 1 tab PO DAILY Lipase/Protease/Amylase [Manav Hart 12,000 Units Capsule] 2 cap PO AC 30 Days # 240 cap 08/24/17 Budesonide/Formoterol Fumarate [Symbicort 80-4.5 Mcg Inhaler] 1 puff IH BID 08/30 Colesevelam HCl [Welchol] 625 mg PO BID 10/20/17 Ferrous Gluconate 324 mg PO DAILY 10/20/17 Furosemide 40 mg PO DAILY 10/20/17 Losartan Potassium 50 mg PO DAILY 10/20/17 Potassium Chloride [Micro-K] 10 meq PO DAILY 10/20/17 Telotristat Etiprate [Xermelo] 250 mg PO TID 10/20/17 Umeclidinium Brm/Vilanterol Tr [Anoro Ellipta 62.5-25 Mcg INH] 1 puff IN DAILY 10/20/17 - Past Medical/Surgical History Has patient received pneumonia vaccine in the past: Yes Diabetic: Yes -: HTN -: GERD -: DM -: Irregular Heart Rate -: Depression -: CHF -: anxiety -: pacemaker -: bowel cancer -: Left knee replacement -: Pacemaker -: Left shoulder sx -: Small/Large Bowel resection r/t obstruction -: Cardiac Bypass - Family History Father -: Heart disease Notes: heart attack Mother -: Lung disease Notes: emphysema - Social History Smoking Status: Never smoker Alcohol use: No CD- Drugs: No Caffeine use: Yes Place of Residence: Home Review of Systems 10-point ROS is otherwise unremarkable Physical Examination - Vital Signs Temperature: 98.5 F Blood Pressure: 161/76 Pulse: 59 Respirations: 18 Pulse Ox (%): 99 - Physical Exam General: Alert, In no apparent distress HEENT: Atraumatic, PERRLA, Mucous membr. moist/pink, EOMI, Sclerae nonicteric Neck: Supple, 2+ carotid pulse no bruit, No LAD, Without JVD or thyroid abnormality Respiratory: Clear to auscultation bilaterally, Normal air movement Cardiovascular: Regular rate/rhythm, Normal S1 S2 Gastrointestinal: Normal bowel sounds, No tenderness Musculoskeletal: No tenderness Integumentary: No rashes Neurological: Normal gait, Normal speech, Normal strength at 5/5 x4 extr, Normal tone, Normal affect Lymphatics: No axilla or inguinal lymphadenopathy - Studies Laboratory Data (last 24 hrs) 10/19/17 : PT 16.6 H, INR 1.40, APTT 33.7 10/19/17 : Sodium 143, Potassium 3.7, BUN 12, Creatinine 1.20, Glucose 95, Magnesium 1.6 L, Total Bilirubin 0.6, AST 34, ALT 41, Alkaline Phosphatase 136 H 10/19/17 : WBC 5.9, Hgb 11.1 L, Hct 32.9 L, Plt Count 162 Assessment and Plan - Problems (Diagnosis) (1) Chronic diarrhea Onset Date: 07/20/17 Current Visit: No Status: Acute Plan: Patient has been very difficult to controll. We have tried creon and welchol. He stopped taking the creon as states he has to go immediately after using it. Have called his colorectal surgeon Dr. Mavis Wright and Dr Alfredo, his GI. awaiting a call back. Will most likely discharge him home today. Have the patient follow up as an outpatient and continue working with him. Will start feeding him and if he tolerates diet we can send him home (2) Hypomagnesemia Current Visit: Yes Status: Acute Plan: will replace orally. As he is just below the normal No reason for painful iv magnesium. We can discharge him on a week of magnesium (3) Hypertension Onset Date: 07/20/17 Current Visit: No Status: Acute Plan: Continue his home medications Qualifiers: Hypertension type: essential hypertension Qualified Code(s): I10 - Essential (primary) hypertension Discharge Plan: Home Plan to discharge in: 24 Hours - Advance Directives Does patient have a Living Will: No Does patient have a Durable POA for Healthcare: No - Code Status/Comfort Care Code Status Assessed: No Code Status: Full Code Physician Review: Patient Assessed, Agree with Above Assessment and Plan Critical Care: No Time Spent Managing Pts Care (In Minutes): 75
[2017-10-20] MEDS ORDERED: LIOTHYRONINE SOD 5 MCG TAB PO SCH (09:00)
[2017-10-20] MEDS ORDERED: MULTIVIT W/ MINERAL TAB PO SCH (09:00)
[2017-10-20] MEDS ORDERED: COLESEVELAM HCL 625 MG PO SCH (09:00)
[2017-10-20] MEDS: [UNRECOGNIZED DRUG - OTHER] PO SCH ×2 (09:00→13:29)
[2017-10-20] MEDS ORDERED: APIXABAN 5 MG TABLET PO SCH (09:00)
[2017-10-20] MEDS ORDERED: FUROSEMIDE 20 MG/ 2ML VIAL IV SCH (09:00)
[2017-10-20] MEDS ORDERED: FERROUS GLUCONATE 300 MG TAB PO SCH (09:00)
[2017-10-20] MEDS ORDERED: LOSARTAN POTASSIUM 50 MG TABLET PO SCH (09:00)
[2017-10-20] MEDS ORDERED: HOME MED 1 EA UNK (Budesonide/Formoterol Fumarate [Symbicort 80-4.5 Mcg Inhaler] 1 PUFF) IH SCH (09:00)
[2017-10-20] MEDS ORDERED: METOPROLOL TAR 50 MG TAB PO SCH (09:00)
[2017-10-20] MEDS ORDERED: POTASSIUM CL SA 10 MEQ TAB PO SCH (09:00)
[2017-10-20] MEDS ORDERED: MAGNESIUM SULFATE 1 gm IVPB 1 GM/100 ML BAG IV ONE (09:00)
[2017-10-20 10:47] VITALS: O2SAT 96
[2017-10-20 12:45] VITALS: BP 150/60; TEMP 98
--- NOTE | 2017-10-20 12:48 | P.DS ---
Admission Date: 10/20/17 Discharge Date: 10/20/17 Primary Care Provider: Parminder Disposition: ROUTINE DISCHARGE Discharge Condition: GOOD Reason for Admission: shortness of breath - Problems (1) Chronic diarrhea Onset Date: 07/20/17 Current Visit: No Status: Acute (2) Hypomagnesemia Current Visit: Yes Status: Acute (3) Hypertension Onset Date: 07/20/17 Current Visit: No Status: Acute Qualifiers: Hypertension type: essential hypertension Qualified Code(s): I10 - Essential (primary) hypertension Brief History of Present Illness: Patient is an office patient of [employer]. He had a carcinoid tumor resection. Since then he has been having bouts of diarrhea. this has greatly effected his life as he has a number of accidents. he also has been loosing weight and getting short of breath during these episodes and sometimes with exertion. The patient has multiple visits to the ER. Feels better with some fluids and wants to go home the next day. He is asking to go home this morning as well. He has not had any diarrhea this morning. His last weight was 169 on 10/07/15 in the office. He is not currently complaining of any shortness of breath. Hospital Course: Patient is doing better. Seen by . Only short of breath when he goes to the bathroom. This has been gong on for the past few months. After he had the carcinoid tumor removed. Will have him follow up with Dr. Garcia. Follow up with me as an outpatient Vital Signs/Physical Exam: Temp Pulse Resp BP Pulse Ox 98.0 F 60 18 150/60 H 99 10/20/17 12:00 10/20/17 12:00 10/20/17 12:00 10/20/17 12:10/20/17 12:00 General: Alert, In no apparent distress HEENT: Atraumatic, PERRLA, EOMI Neck: Supple, JVD not distended Respiratory: Clear to auscultation bilaterally, Normal air movement Cardiovascular: Regular rate/rhythm, Normal S1 S2 Gastrointestinal: Normal bowel sounds, No tenderness Musculoskeletal: No tenderness Integumentary: No rashes Neurological: Normal speech, Normal tone, Normal affect Lymphatics: No axilla or inguinal lymphadenopathy Laboratory Data at Discharge: WBC 5.9 K/uL (4.3-10.9) 10/19/17 Unknown Hgb 11.1 g/dL (13.6-17.9) L 10/19/17 Unknown Hct 32.9 % (39.6-49.0) L 10/19/17 Unknown Plt Count 162 K/uL (152-406) 10/19/17 Unknown PT 16.6 SECONDS (9.5-12.5) H 10/19/17 Unknown INR 1.40 10/19/17 Unknown APTT 63.7 SECONDS (24.3-36.9) H 10/20/17 05:48 Sodium 143 mmol/L (136-145) 10/19/17 Unknown Potassium 3.7 mmol/L (3.5-5.1) 10/19/17 Unknown BUN 12 mg/dL (7-18) 10/19/17 Unknown Creatinine 1.20 mg/dL (0.55-1.3) 10/19/17 Unknown Glucose 95 mg/dL (74-106) 10/19/17 Unknown Magnesium 1.6 mg/dL (1.8-2.4) L 10/19/17 Unknown Total Bilirubin 0.6 mg/dL (0.2-1.0) 10/19/17 Unknown AST 34 U/L (15-37) 10/19/17 Unknown ALT 41 U/L (12-78) 10/19/17 Unknown Alkaline Phosphatase 136 U/L (45-117) H 10/19/17 Unknown Troponin I 0.09 ng/mL (0.0-0.045) H 10/20/17 09:33 Home Medications: Albuterol Sulfate [Ventolin Hfa] 18 gm IH PRN 08/20/17 Apixaban [Eliquis] 5 mg PO BID 08/20/17 Liothyronine Sodium [Cytomel] 5 mcg PO DAILY 08/20/17 Metoprolol Tartrate [Lopressor] 50 mg PO BID 08/20/17 Multivit-Min/FA/Lycopen/Lutein [Centrum Silver Men Tablet] 1 tab PO DAILY Lipase/Protease/Amylase [Creon Dr 12,000 Units Capsule] 2 cap PO AC 30 Days # 240 cap 08/24/17 Budesonide/Formoterol Fumarate [Symbicort 80-4.5 Mcg Inhaler] 1 puff IH BID 08/30 Colesevelam HCl [Welchol] 625 mg PO BID 10/20/17 Ferrous Gluconate 324 mg PO DAILY 10/20/17 Furosemide 40 mg PO DAILY 10/20/17 Losartan Potassium 50 mg PO DAILY 10/20/17 Potassium Chloride [Micro-K] 10 meq PO DAILY 10/20/17 Telotristat Etiprate [Xermelo] 250 mg PO TID 10/20/17 Umeclidinium Brm/Vilanterol Tr [Anoro Ellipta 62.5-25 Mcg INH] 1 puff IN DAILY 10/20/17 Diet: Regular Activity: Ad eliot Followup: Peggy Henley MD [OUTSIDE PHYSICIAN] - 1-2 Weeks Alberto Zurita MD [Primary Care Provider] - 1 Week Time spent managing pt's care (in minutes): 20
--- NOTE | 2017-10-21 09:50 | CON ---
Date of Consultation: 10/20/2017 Reason For Consultation: Congestive heart failure. History Of Present Illness: Mr. Pascual is a 77-year-old white male. He is a patient of Dr. Zurita. He sees Dr. Neal in the office and has a history of pacemaker, diabetes, hypertension, COPD, CHF, a nd dyslipidemia. Has had chronic diarrhea after colon surgery. Apparently, his diarrhea has been so severe. He has lost almost 100 pounds, comes in short of breath, CHF was noted on chest x-ray, alre channing feeling better with diuresis after IV Lasix. Past Medical History: As stated above. Allergies: NONE. Review of Systems: Negative. Social History: Negative for tobacco, alcohol, or drugs. Medications: At home include inhalers, Eliquis, Lasix, metoprolol, losartan, Welchol, and potassium. Physical Examination: Vital Signs: Stable, he was afebrile, he was in a sinus rhythm. HEENT: Negative. Neck: Supple without any bruit, lymphadenopathy, JVD, or thyromegaly. Chest: Clear to auscultation and percussion. Cardiac: Revealed a regular rhythm and rate without any murmurs, gallops, or rubs. Abdomen: Benign. Nontender, nondistended with good bowel sounds. Extremities: Revealed no clubbing, cyanosis, or edema. Vascular: Revealed adequate pulses bilaterally. Skin: Intact with no evidence of rashes. Diagnostic Data: His troponin was 0.1. BNP was 16,560. Chest x-ray shows CHF. Creatinine was norm al. On June 30, ejection fraction was 45% with moderate aortic regurgitation on echo. Impression And Plan: 1.Acute exacerbation of chronic systolic congestive heart failure, already on appropriate therapy in cluding metoprolol, Lasix, and losartan as well as potassium is improving. I think this is definitel y exacerbated by diarrhea. We need to watch his potassium and magnesium carefully. The patient has recently had a stress test in the office, which was negative. 2.Moderate aortic regurgitation. 3.Chronic obstructive pulmonary disease. 4.Status post pacemaker placement. 5.History of colon cancer status post colectomy. 6.Diabetes. 7.Hypertension, well controlled. 8.Dyslipidemia, well controlled. I agree with the present regimen. Needs to continue to be hydrate d gently while watching his I's and O's, weight, potassium and magnesium as well as kidney function. I will discuss the case further with Dr. Zurita. CHRIS/BRENNA Voice ID: [id number] Report ID: [id number]
== END 2017-10-20 14:55 | disposition home or self-care (01) ==
LOC: ER 21:08 → ERHOLD 10-20 00:52 → 4TH 10-20 01:33
PROVIDERS: ADMIT Internal Medicine; ATTEND Internal Medicine
DX: R19.7 Diarrhea, unspecified (principal); E83.42 Hypomagnesemia; I11.0 Hypertensive heart disease with heart failure; I50.23 Acute on chronic systolic (congestive) heart failure; E11.9 Type 2 diabetes mellitus without complications; J44.9 Chronic obstructive pulmonary disease, unspecified; E78.5 Hyperlipidemia, unspecified; I35.1 Nonrheumatic aortic (valve) insufficiency; Z85.038 Personal history of other malignant neoplasm of large intestine; Z96.652 Presence of left artificial knee joint; Z95.0 Presence of cardiac pacemaker
CPT/HCPCS: 36415; 80053; 81003; 83735; 83880; 84484 ×4; 85025; 85610; 85730 ×2; 87493; 93005; 94640 ×2; 96365; 99285; G0378 ×2; J3475; J1940